=== PATIENT | female | born 1980 | race Caucasian/White ===

== ENCOUNTER 2020-10-23 16:26 | Outpatient (REF) | payer OTHER, SELFPAY | END 2020-10-23 16:27 | disposition home or self-care (01) | LOC: HO.LNP 16:26 | PROVIDERS: Visit Provider Nurse Practitioner Family | DX: Z13.89 Encounter for screening for other disorder (principal) ==

== ENCOUNTER 2020-10-23 16:38 | Outpatient (REF) | payer OTHER, SELFPAY | END 2020-10-23 16:39 | disposition home or self-care (01) | LOC: HO.LAB 16:38 | PROVIDERS: Visit Provider Nurse Practitioner Family | DX: R30.0 Dysuria (principal) | CPT/HCPCS: 87086 ==

== ENCOUNTER 2022-10-07 15:23 | Outpatient (REF) | payer OTHER, SELFPAY ==
[2022-10-07 16:08] LABS: MANUAL DIFF FLAG NO
[2022-10-07 16:15] LABS: Basophils Absolute Auto 0.1 X10*3/uL (0.0-0.2); Basophils Percent Auto 0.5 % (0-2); Eosinophils Absolute Auto 0.1 X10*3/uL (0.0-0.4); Eosinophils Percent Auto 1.5 % (0-4); Hematocrit 45.4 % (37.0-47.0); Hemoglobin 15.7 g/dl (12.0-16.0); Imm Gran Abs Auto 0.03 X10*3/uL (0.00-0.03); Imm Gran Pct Auto 0.3 % (0.0-0.4); Lymphocytes Absolute Auto 2.9 X10*3/uL (1.2-4.9); Lymphocytes Percent Auto 29.9 % (20-40); Mean Corpuscular HGB Conc 34.6 g/dl (31.0-35.0); Mean Corpuscular Volume 86.6 fL (80.0-98.0); Mean Platelet Volume 10.5 fL (9.4-12.3); Monocytes Absolute Auto 0.7 X10*3/uL (0.1-1.2); Monocytes Percent Auto 6.9 % (2-11); Neutrophils Absolute Auto 5.8 x10*3/uL (2.0-8.3); Neutrophils Percent Auto 60.9 % (45-73); Platelet Count 354 X10*3/uL (160-400); Red Blood Count 5.24 X10*6/uL (4.20-5.50); Red Cell Distribution Width 12.1 % (11.0-16.0); White Blood Count 9.6 X10*3/uL (4.8-10.8)
[2022-10-07 16:16] LABS: Appearance Urine Cloudy; Color Urine Yellow; Glucose Urine UA 250 mg/dL (Negative); Leukocyte Esterase Urine Negative (Negative); Nitrite Urine Negative (Negative); PH 5.5 (5.0-9.0); Specific Gravity - Urine 1.025 (1.005-1.025); UMIC TRIGGER UACC YES; Urine Blood Negative (Negative); Urine Ketones 15 mg/dL (Negative); Urine Protein 30 (1+) mg/dL (Neg-Trace)
[2022-10-07 16:21] LABS: Bacteria Urine Trace (None Seen); Hyaline Casts Urine 0-2 /LPF (0-2); RBC Urine 0-2 /HPF (0-2); WBC Urine 0-5 /HPF (0-5)
[2022-10-07 16:56] LABS: Alanine Aminotransferase 38 U/L (0-31); Albumin Level 4.5 g/dL (3.5-5.0); Alkaline Phosphatase 57 U/L (39-117); Anion Gap 17 (12-20); Aspartate Amino Transferase 35 U/L (5-31); Bilirubin Total 0.8 mg/dL (0.0-1.0); Blood Urea Nitrogen 9 mg/dL (9-16); Calcium 9.1 mg/dL (8.4-10.2); Carbon Dioxide 22 mmol/L (22-29); Chloride 104 mmol/L (96-108); Cholesterol 104 mg/dL; Estimated Glomerular Filt Rate > 60; Glucose Fasting 252 mg/dL (60-99); HDL Cholesterol 34 mg/dL; LDL Cholesterol Calculated 22 mg/dl; Potassium 4.4 mmol/L (3.3-5.1); Sodium 139 mmol/L (135-145); Total Protein 7.3 g/dL (6.5-8.0); Triglycerides 240 mg/dL
[2022-10-07 17:12] LABS: TSH reflex Free T4 1.37 uIU/mL (0.32-4.0)
== END 2022-10-07 15:24 | disposition home or self-care (01) ==
LOC: HO.HMGCLDS 15:23
PROVIDERS: PCP Nurse Practitioner Family; Visit Provider Nurse Practitioner Family
DX: E11.65 Type 2 diabetes mellitus with hyperglycemia (principal)
CPT/HCPCS: 36415; 80053; 80061; 81001; 84443; 85025

== ENCOUNTER 2023-01-17 09:25 | Outpatient (REF) | payer OTHER, SELFPAY ==
--- NOTE | ~2023-01-17 | XR_ITS ---
EXAMINATION: XR SHOULDER, RIGHT CLINICAL INFORMATION: Right shoulder pain. COMPARISON: None available. TECHNIQUE: AP, Grashey, and scapular Y views of the right shoulder. FINDINGS: No acute fracture or dislocation. No significant joint space narrowing. Small inferior glenoid marginal osteophytes. No osseous erosion. No abnormal soft tissue calcification. XR/XR shoulder RT min 2V IMPRESSION: Minimal glenohumeral arthrosis.
[2023-01-17 11:08] LABS: MANUAL DIFF FLAG NO
[2023-01-17 11:16] LABS: Basophils Absolute Auto 0.1 X10*3/uL (0.0-0.2); Basophils Percent Auto 0.8 % (0-2); Eosinophils Absolute Auto 0.2 X10*3/uL (0.0-0.4); Eosinophils Percent Auto 2.9 % (0-4); Hematocrit 39.4 % (37.0-47.0); Imm Gran Abs Auto 0.03 X10*3/uL (0.00-0.03); Imm Gran Pct Auto 0.4 % (0.0-0.4); Lymphocytes Absolute Auto 2.6 X10*3/uL (1.2-4.9); Lymphocytes Percent Auto 32.4 % (20-40); Mean Corpuscular Hemoglobin 29.1 pg (27.0-33.0); Mean Corpuscular Volume 88.3 fL (80.0-98.0); Mean Platelet Volume 10.6 fL (9.4-12.3); Monocytes Absolute Auto 0.5 X10*3/uL (0.1-1.2); Monocytes Percent Auto 6.8 % (2-11); Neutrophils Absolute Auto 4.5 x10*3/uL (2.0-8.3); Neutrophils Percent Auto 56.7 % (45-73); Platelet Count 314 X10*3/uL (160-400); Red Blood Count 4.46 X10*6/uL (4.20-5.50); Red Cell Distribution Width 12.5 % (11.0-16.0); White Blood Count 7.9 X10*3/uL (4.8-10.8)
[2023-01-17 11:21] LABS: Appearance Urine Clear; Color Urine Yellow; Glucose Urine UA >=1000 mg/dL (Negative); Leukocyte Esterase Urine Negative (Negative); Nitrite Urine Negative (Negative); PH 6.5 (5.0-9.0); Specific Gravity - Urine 1.025 (1.005-1.025); UMIC TRIGGER UACC YES; Urine Blood Negative (Negative); Urine Ketones Trace mg/dL (Negative); Urine Protein Negative (Neg-Trace)
[2023-01-17 11:27] LABS: Alanine Aminotransferase 14 U/L (0-31); Albumin Level 3.9 g/dL (3.5-5.0); Alkaline Phosphatase 64 U/L (39-117); Anion Gap 15 (12-20); Aspartate Amino Transferase 13 U/L (5-31); Bilirubin Total 0.5 mg/dL (0.0-1.0); Blood Urea Nitrogen 11 mg/dL (9-16); Calcium 9.1 mg/dL (8.4-10.2); Carbon Dioxide 23 mmol/L (22-29); Chloride 101 mmol/L (96-108); Estimated Glomerular Filt Rate > 60; Glucose Random 294 mg/dL (60-115); Potassium 3.9 mmol/L (3.3-5.1); Sodium 135 mmol/L (135-145); Total Protein 6.9 g/dL (6.5-8.0)
[2023-01-17 11:35] LABS: Bacteria Urine Trace (None Seen); Hyaline Casts Urine 0-2 /LPF (0-2); RBC Urine 0-2 /HPF (0-2); WBC Urine 0-5 /HPF (0-5)
[2023-01-19 09:28] LABS: Follicle Stimulating Hormone 4.7 mIU/mL; Lutenizing Hormone 7.7 mIU/mL
[2023-02-01 05:28] LABS: Estradiol Free 6.03 pg/mL; Estradiol, Ultrasensitive 246 pg/mL
== END 2023-01-17 09:26 | disposition home or self-care (01) ==
LOC: HO.HMGCX 09:25
PROVIDERS: PCP Nurse Practitioner Family; Visit Provider Nurse Practitioner Family
DX: M25.511 Pain in right shoulder (principal); E11.65 Type 2 diabetes mellitus with hyperglycemia; R23.2 Flushing; N92.6 Irregular menstruation, unspecified
CPT/HCPCS: 36415; 73030; 80053; 81001; 82670; 82672; 82681; 83001; 83002; 85025

== ENCOUNTER 2023-03-26 14:00 | Outpatient (RCR) | payer OTHER, SELFPAY ==
--- NOTE | 2023-02-05 13:49 | MHC.PT.EP ---
[facility] [place] Office [place] Office [address] Clarissa Loza [address] [phone] F: [phone] F: [phone] F: [phone] F: [phone] Physical Therapy Plan of Care Date of Evaluation: Date of Surgery: n/a Diagnosis: R shoulder pain Assessment: Patient is a 42 year old female presenting to PT with complaints of pain in her R shoulder. Pt reports onset of pain began about 1 month ago due to insidious onset. She presents today with impairments in pain, ROM, shoulder strength, posture. Pt's current occupation is none, with baseline physical activities including reaching, lifting, ADLs, sleeping. 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 Clinical presentation today is most consistent with signs and sx associated with R shoulder pain and pt will benefit from skilled PT 2 week x 4 weeks to address the following problems and impairments noted upon evaluation: pain, ROM, shoulder strength, posture. These problems limit the patient with the following functional activities: reaching, lifting, ADLs, sleeping. The prescribed treatment plan of care is medically necessary. Co-morbidities of tachycardia, DM were identified and taken into considerations of plan of care. Pt was educated on HEP, role of PT, prognosis, POC. Frequency and Duration: The patient will be seen 2 x week x 4 weeks Short Term Goals: Pt will demonstrate improved R shoulder ROM to equal B in 2 weeks. Pt will demonstrate improved R shoulder MMT strength by 1/3 grade in 2 weeks. Pt will demonstrate improved postural awareness by sitting with biomechanically correct posture without cues throughout session to improve overall postural function in 2 weeks. Chcf Goals: Pt will demonstrate improved SPADI score by 13 points in 4 weeks for improved functional mobility. Pt will demonstrate ability to reach and lift with min to no pain in 4 weeks for improved ability to complete ADLs. Pt will demonstrate ability to sleep with min to no pain in 4 weeks for improved QOL. Treatment Plan: Modalities to reduce pain, spasms and effusion. Manual therapy to restore motion and function. Therapeutic exercise to improve strength and flexibility. Neuromuscular re-education for posture and balance. Therapeutic activities to return to functional activities of daily living. Electronically signed by: Angelic Yung, PT, DPT, ATC Please sign and return to therapist. Thank you for your referral.
--- NOTE | 2023-04-07 14:24 | MHC.PT.DC ---
[facility] [place] Office [place] Office [place] Office [address] Aleena Loza [address] [phone] F: [phone] F: [phone] F: [phone] F: [phone] Physical Therapy Discharge Report Diagnosis: R shoulder pain Date of Surgery: n/a Date of Evaluation: 02/05/23 Date of Discharge: 04/07/23 Treatments to Date: 6 Cancellations to Date: 8 No Shows to Date: 2 Discharge Status: Visit Non-compliance Discharge Summary: Pt has failed to comply with [facility] attendance policy and cancelled 8 appointments and no showed 2. Pt to be d/c at this time. Electronically signed by: Angelic Yung, PT, DPT, ATC Please sign and return to therapist. Thank you for your referral.
== END 2023-04-07 14:25 | disposition home or self-care (01) ==
LOC: HO.PTCHIC 14:00
PROVIDERS: PCP Nurse Practitioner Family; Visit Provider Nurse Practitioner Family
DX: M25.511 Pain in right shoulder (principal)
CPT/HCPCS: 97110; 97140; 97161

== ENCOUNTER 2023-04-20 11:05 | Outpatient (AMB) | payer OTHER, SELFPAY ==
--- NOTE | 2023-04-20 11:12 | MHC.PC.OV ---
Vital Signs 04/20/23 11:13 04/20/23 11:40 Height 5 ft 5 in Weight 205 lb BMI 34.1 BP 130/100 H 130/96 H Blood Pressure Location Lt brachial Lt brachial Position Sitting Sitting Pulse 102 H Pulse Source Pulse Oximeter Pulse Oximetry (%) 98 Oxygen Delivery Method Room Air Intake Visit Reasons: 3m follow up anxiety/depression Allergies diphenhydramine [Benadryl] Allergy (Unknown, Verified 04/20/23 12:18) swelling, hives Benadryl Allergy (Unknown, Uncoded 04/20/23 12:18) hives Pumpkin Allergy (Unknown, Uncoded 04/20/23 12:18) unknown Seafood Allergy (Unknown, Uncoded 04/20/23 12:18) unknown Medication List - Last Reconciled 04/20/23 by Isaac Boykin ROSTER CLERK- albuterol sulfate 90 mcg/actuation (ProAir HFA) 2 puffs inhalation Q4-6H PRN alcohol swabs (Alcohol Pads) 1 pad topical BID 90 days alprazolam 1 mg PO BID PRN 30 days atorvastatin 10 mg PO BEDTIME 90 days blood sugar diagnostic (FreeStyle Test strips) As directed blood sugar diagnostic (FreeStyle Lite Strips) As directed to test blood sugars TID a day blood-glucose meter ([place]Style System Kit) Use to check blood sugar TID celecoxib (Celebrex) 200 mg PO BID PRN 30 days cetirizine 10 mg PO DAILY 30 days duloxetine 20 mg PO ONCE epinephrine (EpiPen 2-Merrill) 0.3 mg (0.3 mL) IM ONCE PRN fenofibrate 54 mg PO DAILY flash glucose scanning reader (FreeStyle Jacob 2 [place]) tid testing flash glucose sensor (FreeStyle Jacob 2 Sensor kit) tid testing gabapentin 300 mg PO QID 30 days lancets (FreeStyle Lancets) Use to check blood sugar TID or as needed for signs/symptoms of hypo/hyperglycemia metformin 1,000 mg PO BID propranolol 20 mg PO BID semaglutide (Ozempic) 0.25 mg (0.368 mL) subcut QWEEK Shower Chair daily tizanidine 4 mg PO BEDTIME PRN 15 days walker daily [walker with seat and wheels daily] Tobacco use date assessed: 11/26/22 HPI 3m follow up anxiety/depression HPI Details Pt is a diabetic, on a statin. A1C in office today is 8.6. Due for microalbumin. Denies polyuria, polydipsia, and neuropathy. Pt denies any signs and symptoms of hypoglycemia and does know how to correct it. Pt reports that due to dysphagia she has been eating more carbs. Will increase ozempic from 0.25mg to 0.5mg. She is seeing GI due to dysphagia. Eye exam is up to date. HTN: Will increase propranolol from 20mg big to 40mg bid. Pt reports ongoing intermittent weakness. She also reports a facial droop in the past?? Pt would like MG ruled out. Will refer to neurology per pt's request. [facility] Medical History Arthritis Hypermobility arthralgia Surgical History No pertinent past surgical history Family History Other Mental health disorder Substance use disorder Social History Housing: House Alcohol intake: current Alcohol intake frequency: holidays/special occasions only Patient Tobacco Use Status: Former Tobacco user Quit Date: 06/17 Tobacco use type: Cigarette e-Cigarette/Vaping Use: Never Used Second Hand Smoke Exposure: Yes Substance Use Type: Marijuana service: No Current occupational status: unemployed Cognitive needs: No Hearing needs: No Vision needs: Yes (contacts) Questionnaire Thrive Questionnaire Date Thrive assessed: 10/07/22 RADHA-7 AMB Questionnaire RADHA-7 Date RADHA - 7 assessed: 10/07/22 Source: Developed by Drs. Matthew Walton, Jazzmine Florian, Eloy Jaramillo and colleagues, with an educational bryce from [employer]. Review of Systems Const Reports as per HPI Physical exam (Primary Care) Vital Signs: Last Vital Signs Pulse 102 H 04/20/23 11:13 BP 130/96 H 04/20/23 11:40 Pulse Ox 98 04/20/23 11:13 Oxygen Delivery Method Room Air 04/20/23 11:13 BMI result Body Mass Index 34.1 Tobacco/Smoking Status: Tobacco use Status Tobacco use date assessed 11/26/22 04/20/23 11:16 Patient Tobacco Use Status Former Tobacco user 04/20/23 11:16 Tobacco use type Cigarette 04/20/23 11:16 e-Cigarette/Vaping Use Never Used 04/20/23 11:16 Thrive Assessment: Date of Thrive Assessment Date Thrive assessed 10/07/22 04/20/23 11:16 Const General: cooperative Nutritional Appearance: obese Orientation/consciousness: patient oriented x3 Resp Effort & Inspection: normal respiratory effort Auscultation: clear to auscultation bilaterally Cardio Rate: regular rate Rhythm: regular rhythm Heart sounds: S1 normal heart sound present and S2 normal heart sound present Neuro Other: neg rhomberg, finger to thumb intact, arm pull test neg. General: patient oriented x3 Cranial nerves: Yes CN's II-XII intact bilaterally Motor exam (neuro): 5/5 motor strength present throughout Extrem Other: bilat feet: + sensation with use of monofilament Psych Appearance: grossly normal Mental Status: mental status grossly normal Speech and movement: Normal speech and movement present Affect: normal affect Attitude: cooperative Thought process: Normal thought process present Thought content: Normal thought content present Insight: Good insight present (Psych) Judgement: Good judgement present (Psych) Results AMB Hemoglobin A1c AMB Hemoglobin A1c 8.6 % Last Edit by ETHEL Laughlin on 04/20/23 11:37 Results Reviewed Results Reviewed: Laboratory Last Values Hgb A1c (Clinic) 8.6 % (4.0-6.0) H 04/20/23 11:36 Assessment and Plan Assessment & Plan (1) Muscle weakness: Code(s): M62.81 - Muscle weakness (generalized) (2) Dysphagia: Code(s): R13.10 - Dysphagia, unspecified (3) Diabetes: Code(s): E11.9 - Type 2 diabetes mellitus without complications Plan The patient agreed to the use of a medical office technologist for this encounter. Scribed for TASIA Morales by Yari Cartagena medical office technologist, on 04/20/2023 at 11:20 EST. Orders: Orders AMB Hemoglobin A1c Today Z13.9 - Encounter for screening, unspecified Referrals Neurology Referral M62.81 - Muscle weakness (generalized) Medications: Changed From propranolol 20 mg PO BID 180 tabs 1RF To propranolol 40 mg PO BID 60 tabs 1RF 30 days From semaglutide (Ozempic) for 4 weeks 0.25 mg (0.368 mL) subcut QWEEK 3 mL 0RF To semaglutide (Ozempic) for 4 weeks 0.5 mg (0.736 mL) subcut QWEEK 3 mL 0RF Coding Level of Care Code Est Pt Level 3 (58534) Diagnoses Muscle weakness M62.81 Dysphagia R13.10 Diabetes E11.9
[2023-04-20 11:13] VITALS: BP 130/100; PULSE 102; O2SAT 98; BMI 34.1
[2023-04-20 11:40] VITALS: BP 130/96
== END 2023-04-20 13:40 | disposition home or self-care (01) ==
PROVIDERS: PCP Nurse Practitioner Family; Visit Provider Nurse Practitioner Family
DX: M62.81 Muscle weakness (generalized) (principal); R13.10 Dysphagia, unspecified; E11.9 Type 2 diabetes mellitus without complications
CPT/HCPCS: 83036; 99213

== ENCOUNTER 2023-04-29 16:41 | Outpatient (REF) | payer OTHER, SELFPAY ==
[2023-04-29] MEDS: gadobutroL 10 ML VIAL IVPUSH (17:20)
== END 2023-04-29 16:42 | disposition home or self-care (01) ==
LOC: HO.MRI 16:41
PROVIDERS: PCP Nurse Practitioner Family; Visit Provider Nurse Practitioner Family
DX: G81.91 Hemiplegia, unspecified affecting right dominant side (principal)
CPT/HCPCS: 70553; A9585

== ENCOUNTER 2023-07-23 16:27 | Outpatient (AMB) | payer OTHER, SELFPAY ==
--- NOTE | 2023-07-23 16:42 | MHC.PC.OV ---
Vital Signs 07/23/23 16:44 Weight 213 lb BP 120/82 Blood Pressure Location Lt brachial Position Sitting Pulse 79 Pulse Source Pulse Oximeter Pulse Oximetry (%) 98 Oxygen Delivery Method Room Air Intake Visit Reasons: Diabetes F/U Intake Note: Patient here for diabetes follow up, she states her sugars have been on the higher end of them as she is having difficulty swallowing so shes been consuming more carbs since they are usually on the softer side. 12.4 a1c, pt refuses insulin today, give me 3 months . #2 right shoulder pain, XR, PT performed, without relief. I will order a MRI at this point Allergies diphenhydramine [Benadryl] Allergy (Unknown, Verified 07/23/23 16:56) swelling, hives Benadryl Allergy (Unknown, Uncoded 07/23/23 16:56) hives Pumpkin Allergy (Unknown, Uncoded 07/23/23 16:56) unknown Seafood Allergy (Unknown, Uncoded 07/23/23 16:56) unknown Medication List - Last Reconciled 07/23/23 by Isaac Boykin, DATAWAREHOUSE DEVELOPER- albuterol sulfate 90 mcg/actuation (ProAir HFA) 2 puffs inhalation Q4-6H PRN alcohol swabs (Alcohol Pads) 1 pad topical BID 90 days alprazolam 1 mg PO BID 30 days atorvastatin 10 mg PO BEDTIME 90 days betamethasone dipropionate 0.05% 1 appl topical DAILY PRN blood sugar diagnostic (FreeStyle Test strips) As directed blood sugar diagnostic (FreeStyle Lite Strips) As directed to test blood sugars TID a day blood-glucose meter (FreeStyle System Kit) Use to check blood sugar TID celecoxib (Celebrex) 200 mg PO BID PRN 30 days cetirizine 10 mg PO DAILY 30 days duloxetine 40 mg PO ONCE epinephrine (EpiPen 2-Merrill) 0.3 mg (0.3 mL) IM ONCE PRN fenofibrate 54 mg PO DAILY flash glucose scanning reader (FreeStyle Jacob 2 [place]) tid testing flash glucose sensor (FreeStyle Jacob 2 Sensor kit) tid testing gabapentin 300 mg PO QID 30 days lancets (FreeStyle Lancets) Use to check blood sugar TID or as needed for signs/symptoms of hypo/hyperglycemia lisinopril 2.5 mg PO DAILY metformin 1,000 mg PO BID propranolol 40 mg PO BID 30 days semaglutide 1 mg (0.75 mL) subcut QWEEK Shower Chair daily tizanidine 4 mg PO BEDTIME PRN 15 days walker daily [walker with seat and wheels daily] Tobacco use date assessed: 11/26/22 HPI Diabetes F/U HPI Details pt is on a statin and a sofy. eye exam is up to date. 12.4 A1 today. Patient refuses any type of insulin today but reports that she will definitely consider this in 3 months if her A1c is still very high. She understands the s/s of hypoglycemia and how to correct it. I will go up on her ozempic from 0.5 mg to 1 mg. Patient denies any polyuria, polydipsia, but does get intermittent neuropathy (mostly in her legs) #2 ongoing right shoulder pain. X-ray has been performed, she has participated in physical therapy with no relief. At this point I will order an MRI. [facility] Medical History Arthritis Hypermobility arthralgia Surgical History No pertinent past surgical history Family History Other Mental health disorder Substance use disorder Social History Housing: House Alcohol intake: current Alcohol intake frequency: holidays/special occasions only Patient Tobacco Use Status: Former Tobacco user Quit Date: 06/17 Tobacco use type: Cigarette e-Cigarette/Vaping Use: Never Used Second Hand Smoke Exposure: Yes Substance Use Type: Marijuana service: No Current occupational status: unemployed Cognitive needs: No Hearing needs: No Vision needs: Yes (contacts) Questionnaire Thrive Questionnaire Date Thrive assessed: 10/07/22 RADHA-7 AMB Questionnaire RADHA-7 Date RADHA - 7 assessed: 10/07/22 Source: Developed by Drs. Matthew Walton, Jazzmine Florian, Eloy Jaramillo and colleagues, with an educational bryce from [employer]. Physical exam (Primary Care) Vital Signs: Last Vital Signs Pulse 79 07/23/23 16:44 BP 120/82 07/23/23 16:44 Pulse Ox 98 07/23/23 16:44 Oxygen Delivery Method Room Air 07/23/23 16:44 Tobacco/Smoking Status: Tobacco use Status Tobacco use date assessed 11/26/22 07/23/23 16:48 Patient Tobacco Use Status Former Tobacco user 07/23/23 16:48 Tobacco use type Cigarette 07/23/23 16:48 e-Cigarette/Vaping Use Never Used 07/23/23 16:48 Thrive Assessment: Date of Thrive Assessment Date Thrive assessed 10/07/22 07/23/23 16:48 Const General: cooperative, healthy appearing, comfortable and no acute distress Resp Effort & Inspection: normal respiratory effort Auscultation: clear to auscultation bilaterally Cardio Rate: regular rate Rhythm: regular rhythm Heart sounds: S1 normal heart sound present, S2 normal heart sound present and no murmurs Neuro Motor exam (neuro): 5/5 motor strength present throughout Extrem Other: Positive sensation with use of monofilament. Feet are intact Psych Appearance: grossly normal Mental Status: mental status grossly normal Speech and movement: Normal speech and movement present Affect: normal affect Thought process: Normal thought process present Results AMB Hemoglobin A1c AMB Hemoglobin A1c 12.4 % Last Edit by ETHEL Laughlin on 07/23/23 17:14 Results Reviewed Results Reviewed: Laboratory Last Values Hgb A1c (Clinic) 12.4 % (4.0-6.0) H 07/23/23 17:13 Assessment and Plan Assessment & Plan (1) Right shoulder pain: Code(s): M25.511 - Pain in right shoulder (2) Diabetes: Code(s): E11.9 - Type 2 diabetes mellitus without complications Plan: increased ozempic, pt refused insulin currently Orders: Orders MR shoulder RT w con Today M25.511 - Pain in right shoulder AMB Hemoglobin A1c Today E11.9 - Type 2 diabetes mellitus without complications Medications: New betamethasone dipropionate 0.05% 1 appl topical DAILY PRN 45 grams 0RF skin irritation Changed From semaglutide (Ozempic) 0.5095 mg (0.75 mL) subcut QWEEK 3 mL 0RF To semaglutide 1 mg (0.75 mL) subcut QWEEK 3 mL 0RF Coding Level of Care Code Est Pt Level 3 (80837) Diagnoses Right shoulder pain M25.511 Diabetes E11.9
[2023-07-23 16:44] VITALS: BP 120/82; PULSE 79; O2SAT 98
== END 2023-07-23 17:10 | disposition home or self-care (01) ==
PROVIDERS: PCP Nurse Practitioner Family; Visit Provider Nurse Practitioner Family
DX: M25.511 Pain in right shoulder (principal); E11.9 Type 2 diabetes mellitus without complications
CPT/HCPCS: 83036; 99213

== ENCOUNTER 2023-08-07 10:47 | Outpatient (AMB) | payer OTHER, SELFPAY ==
--- NOTE | 2023-08-07 10:50 | A.OFFVIS_ITS ---
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 I had a back injury in May,ponching my nerves Im having issues with my hands and whole body I couldn't swallow, i also have numbness and nerve tremors. Allergies diphenhydramine [Benadryl] Allergy (Unknown, Verified 08/07/23 10:53) swelling, hives Benadryl Allergy (Unknown, Uncoded 08/07/23 10:53) hives Pumpkin Allergy (Unknown, Uncoded 08/07/23 10:53) unknown Seafood Allergy (Unknown, Uncoded 08/07/23 10:53) unknown Medication List - Last Reconciled 08/07/23 by HEATH Major albuterol sulfate 90 mcg/actuation (ProAir HFA) 2 puffs inhalation Q4-6H PRN alcohol swabs (Alcohol Pads) 1 pad topical BID 90 days alprazolam 1 mg PO BID 30 days atorvastatin 10 mg PO BEDTIME 90 days betamethasone dipropionate 0.05% 1 appl topical DAILY PRN blood sugar diagnostic (FreeStyle Lite Strips) As directed to test blood sugars TID a day blood-glucose meter (FreeStyle System Kit) Use to check blood sugar TID celecoxib (Celebrex) 200 mg PO BID PRN 30 days cetirizine 10 mg PO DAILY 30 days duloxetine 40 mg PO ONCE epinephrine (EpiPen 2-Merrill) 0.3 mg (0.3 mL) IM ONCE PRN fenofibrate 54 mg PO DAILY flash glucose scanning reader ([employer]CIER[employer]tyle Jacob 2 [place]) tid testing flash glucose sensor (FreeStyle Jacob 2 Sensor kit) tid testing gabapentin 300 mg PO QID 30 days lancets (FreeStyle Lancets) Use to check blood sugar TID or as needed for signs/symptoms of hypo/hyperglycemia lisinopril 2.5 mg PO DAILY metformin 1,000 mg PO BID propranolol 40 mg PO BID 30 days semaglutide 1 mg (0.75 mL) subcut QWEEK Shower Chair daily tizanidine 4 mg PO BEDTIME PRN 15 days walker daily [walker with seat and wheels daily] HPI HPI Comments History of Present Illness Details Right-handed 43-yr-old female presents for neurological evaluation of: weakness for ? of Myasthenia Gravis. Pt reports she suffered a low back injury May 2022- L5 disc herniation following a bout of sneezing. This caused severe back pain, LLE radicular pain. She states she was bedbound for almost 4 months. But slowly she started to feel better. Although her gait is still altered- tends to waddle. She can still feel low back pain and LLE radicular s/s. She did not have surgery d/t her HgA1C was not optimally controlled (last HgA1C > 12%, dx'sdw/ DM x's 5 yrs). She had worsening of BLE burning/sharp pains in BLE- had prior to the injury but again was worse after- and now betetr w/ starting Duloxetine for mood. In September 2022, she developed muscle twitching in her head, lip, arms, even in her colon. It is not painful but annoying. In September 2022, She started having episodes of heart palpitations, night sweats, and waking up gasping for air- and has since been started on Propranolol which helps although can have breakthrough palpitations. In October 2022- she started developing difficulty swallowing either fluids or solids, which lasted 4 months. Now occurring randomly w/ bouts of difficulty swallowing- tends to eat softer foods or has to cut up the foods in very small pieces. Unsure of any clear triggers. Barium swallow showed weak swallow, but otherwise ENT, GI work-up was unremarkable. In November 2022, she started having right shoulder and right arm pain (more in shoulder to elbow), shooting, burning, throbbing. The arm pain can waker her up at night, Rt shoulder XR- showed arthritis. In December/January 2023- she developed full left sided weakness/numbness w/ left facial droop x's 2 days. Brain MRI was normal. She also endorses: For yrs, Milly hands can go numb and she will drop things without realizing it. Blurry vision Left eye droop- unsure how often. Unsure of triggers. Can be easily SOB- pulmonology does not think it is d/t her asthma- Dr Humphreys. Left temporal and Left upper arm muscle spasms. Cramps anywhere in the body. Restless legs- urge to move, restless sleep, need to rub her legs, creepy crawling sensation- even in her arms. Her boyfriend has told her she snores, especially if sleeping supine, loud b reathing, unrefreshing sleep, excessive daytime sleepiness. Headaches- can be milly occipital to frontal or bifrontal/temporal throbbing and sometimes sharp, photophobia, phonophobia, osmophobia, allodynia, nausea, dizziness, brain fog, activity tolerance. No known usual focal weakness. Celebrex helps- has occasional mild ANDERSON a/w photophobia. Without Celebrex- she was having 2 migraine attacks per week. Duration- 4-5 hrs up to 1 day. If she misses her Celebrex= she will have a sevre migraine. Last severe migarine was in Apr 2023. She never tried Imitrex. Naproxen- was helpful even for prevention. Work-Up: 04/29/23, Brain MRI w/wo- normal 03/05/23 CXR- normal 03/05/22 Neck CTA- normal 03/05/23 Head CTA- normal 03/05/23 CT brain wo- no acute findings 02/09/23 CR barrium swallow- mild esophag eal dysmotility 01/20/23 Transthoracic Echocardiogram- no rmal 01/19/23 24 hr Holter- NSR, 2 PACs. No PV Cs. 06/20/22 L-spine MRI w/o: L4-L5- mild ri ght paracentral disc bulge. L5-S1- mild degenertaive change, large left paracentral disc protrusion, likely impinging left S1 nerve root, milly lateral recess stenosis, mod central canal stenosis, mild right and mild-mod left neural foraminal stenosis (full report in chart). [facility] Medical History Arthritis Hypermobility arthralgia Surgical History No pertinent past surgical history Family History Other Mental health disorder Substance use disorder Social History Housing: House Alcohol intake: current Alcohol intake frequency: holidays/special occasions only Patient Tobacco Use Status: Former Tobacco user Quit Date: 06/17 Tobacco use type: Cigarette e-Cigarette/Vaping Use: Never Used Second Hand Smoke Exposure: Yes Substance Use Type: Marijuana service: No Current occupational status: unemployed Cognitive needs: No Hearing needs: No Vision needs: Yes (contacts) Questionnaire [place] Sleepiness Scale Questions Sitting and reading: high chance of dozing Watching TV: high chance of dozing Sitting inactive in a theater, movie etc.: would never doze As a passenger in a car for an hour without break: moderate chance of dozing Lying down in the afternoon when circumstances permit: moderate chance of dozing Sitting and talking to someone: would never doze Sitting quietly after lunch without alcohol: moderate chance of dozing In a car, while stopped for a few minutes in the traffic: would never doze ESS < 10: normal, ESS > 12: pathologic: 12 Review of Systems Const All systems reviewed & are unremarkable except as noted in HPI and below Physical Exam Vital Signs: Last Vital Signs Pulse 82 08/07/23 10:51 BP 118/82 08/07/23 10:51 Pulse Ox 97 08/07/23 10:51 Oxygen Delivery Method Room Air 08/07/23 10:51 BMI result Body Mass Index 35.4 Const General: cooperative and no acute distress Orientation/consciousness: patient oriented x3 HEENT Head: Yes normocephalic Resp Effort & Inspection: normal respiratory effort and able to speak in complete sentences Back/Spine/Pelvis Other: Bilateral posterior cervical tightness. 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 Bilateral Tinnel, Phalen, medial compression test- negative. DTRs dulled throughout MS 5/5, milly hands grasps- less full force strength than would be expected General: patient oriented x3 Gait exam (Neuro): Antalgic gait present Psych Appearance: grossly normal Mental Status: mental status grossly normal Speech and movement: Normal speech and movement present Affect: normal affect Attitude: cooperative Thought process: Normal thought process present Assessment & Plan Assessment & Plan (1) Muscle weakness: Code(s): M62.81 - Muscle weakness (generalized) (2) Dysphagia: Code(s): R13.10 - Dysphagia, unspecified (3) Muscle cramps: Code(s): R25.2 - Cramp and spasm (4) Muscle spasm: Code(s): M62.838 - Other muscle spasm (5) Cervicalgia: Code(s): M54.2 - Cervicalgia (6) Paresthesia: Code(s): R20.2 - Paresthesia of skin (7) Snoring: Code(s): R06.83 - Snoring (8) Excessive daytime sleepiness: Code(s): G47.19 - Other hypersomnia (9) Esophageal dysmotility: Code(s): K22.4 - Dyskinesia of esophagus Plan Reviewed previous work-up- most notable for esophageal dysmotility in a 43 yr old pt, and L5-S1 large paracentral disc protrusion measuring 1 cm anleroposteriorly w/ central canal stenosis and milly L > R neural foraminal stenosis. Pt advised to undergo: Labs to assess for MG, as well as other secondary etiologies of muscle cramps, muscle twitching, weakness, RLS s/s, left eye pupil dysfunction. BUE EMG/NCS w/ paraspinal muscles BLE EMG/NCS paraspinal muscles XR cervical- 4 v and w/ flex /ext In-lab PSG- as pt has BMI > 35, esophageal dysmotility, snoring, muscle cramps, restless sleep, EDS. Upon review of above- we can consider a trial of Mestinon. Will also send a trial of Sumatriptan prn acute migraine attack. f/u upin review of above and in-clinic in 8 wks or sooner prn. Orders: Orders Complete Blood Count Auto Diff 08/07/23 M62.81 - Muscle weakness (generalized), M62.838 - Other muscle spasm, R00.2 - Palpitations, R06.02 - Shortness of breath, R13.10 - Dysphagia, unspecified, R25.2 - Cramp and spasm CRP High Sensitivity 08/07/23 M62.81 - Muscle weakness (generalized), M62.838 - Other muscle spasm, R00.2 - Palpitations, R06.02 - Shortness of breath, R13.10 - Dysphagia, unspecified, R25.2 - Cramp and spasm Ferritin 08/07/23 M62.81 - Muscle weakness (generalized), M62.838 - Other muscle spasm, R00.2 - Palpitations, R06.02 - Shortness of breath, R13.10 - Dysphagia, unspecified, R25.2 - Cramp and spasm Vitamin B12 and Folate 08/07/23 M62.81 - Muscle weakness (generalized), M62.838 - Other muscle spasm, R00.2 - Palpitations, R06.02 - Shortness of breath, R13.10 - Dysphagia, unspecified, R25.2 - Cramp and spasm IRON PROFILE 08/07/23 M62.81 - Muscle weakness (generalized), M62.838 - Other muscle spasm, R00.2 - Palpitations, R06.02 - Shortness of breath, R13.10 - Dysphagia, unspecified, R25.2 - Cramp and spasm Rheumatoid Factor 08/07/23 M62.81 - Muscle weakness (generalized), M62.838 - Other muscle spasm, R00.2 - Palpitations, R06.02 - Shortness of breath, R13.10 - Dysphagia, unspecified, R25.2 - Cramp and spasm NASRIN Reflex Titer and Pattern 08/07/23 M62.81 - Muscle weakness (generalized), M62.838 - Other muscle spasm, R00.2 - Palpitations, R06.02 - Shortness of breath, R13.10 - Dysphagia, unspecified, R25.2 - Cramp and spasm Acetylcholine Recept. Blocking 08/07/23 M62.81 - Muscle weakness (generalized), M62.838 - Other muscle spasm, R00.2 - Palpitations, R06.02 - Shortness of breath, R13.10 - Dysphagia, unspecified, R25.2 - Cramp and spasm MuSK Antibody 08/07/23 M62.81 - Muscle weakness (generalized), M62.838 - Other muscle spasm, R00.2 - Palpitations, R06.02 - Shortness of breath, R13.10 - Dysphagia, unspecified, R25.2 - Cramp and spasm Creatine Kinase Total 08/07/23 M62.81 - Muscle weakness (generalized), M62.838 - Other muscle spasm, R25.2 - Cramp and spasm NE electromyogram (EMG) 08/08/23 M54.16 - Radiculopathy, lumbar region, M62.81 - Muscle weakness (generalized), M62.838 - Other muscle spasm, R20.2 - Paresthesia of skin, R25.2 - Cramp and spasm RT PSG in-lab sleep study 08/07/23 G47.19 - Other hypersomnia, K22.4 - Dyskinesia of esophagus, R06.02 - Shortness of breath, R06.83 - Snoring, R25.2 - Cramp and spasm Other Ref Test - [facility] [place] 08/07/23 H21.562 - Pupillary abnormality, left eye, M62.81 - Muscle weakness (generalized), R20.2 - Paresthesia of skin Comprehensive Met. Panel 08/07/23 M62.81 - Muscle weakness (generalized), M62.838 - Other muscle spasm, R00.2 - Palpitations, R06.02 - Shortness of breath, R13.10 - Dysphagia, unspecified, R25.2 - Cramp and spasm Erythrocyte Sedimentation Rate 08/07/23 M62.81 - Muscle weakness (generalized), M62.838 - Other muscle spasm, R00.2 - Palpitations, R06.02 - Shortness of breath, R13.10 - Dysphagia, unspecified, R25.2 - Cramp and spasm TSH reflex Free T4 08/07/23 M62.81 - Muscle weakness (generalized), M62.838 - Other muscle spasm, R00.2 - Palpitations, R06.02 - Shortness of breath, R13.10 - Dysphagia, unspecified, R25.2 - Cramp and spasm Acetylcholine Receptor Binding 08/07/23 M62.81 - Muscle weakness (generalized), M62.838 - Other muscle spasm, R00.2 - Palpitations, R06.02 - Shortness of breath, R13.10 - Dysphagia, unspecified, R25.2 - Cramp and spasm Acetylcholine Operations Officer Modulating 08/07/23 M62.81 - Muscle weakness (generalized), M62.838 - Other muscle spasm, R00.2 - Palpitations, R06.02 - Shortness of duncan th, R13.10 - Dysphagia, unspecified, R25.2 - Cramp and spasm Smooth Muscle Antibody 08/07/23 M62.81 - Muscle weakness (generalized), M62.838 - Other muscle spasm, R00.2 - Palpitations, R06.02 - Shortness of breath, R13.10 - Dysphagia, unspecified, R25.2 - Cramp and spasm XR cervical spine 4V 08/07/23 M54.2 - Cervicalgia XR cervical spine w flex/ext 08/07/23 M54.2 - Cervicalgia, M62.81 - Muscle weakness (generalized), R13.10 - Dysphagia, unspecified NE electromyogram (EMG) 08/07/23 M54.2 - Cervicalgia, M62.81 - Muscle weakness (generalized), M62.838 - Other muscle spasm, R13.10 - Dysphagia, unspecified, R20.2 - Paresthesia of skin, R25.2 - Cramp and spasm Medications: New sumatriptan succinate (0.5 - 1 x 100 mg) 50 - 100 mg orally at onset of headache, may repeat in 2 hrs PRN; max 2 tabs per day or 4 tabs/week 30 days 12 tabs 6RF migraine headache Coding Level of Care Code New Pt Level 4 (46362) Diagnoses Muscle weakness M62.81 Dysphagia R13.10 Muscle cramps R25.2 Muscle spasm M62.838 Cervicalgia M54.2 Paresthesia R20.2 Snoring R06.83 Excessive daytime sleepiness G47.19 Esophageal dysmotility K22.4
[2023-08-07 10:51] VITALS: BP 118/82; PULSE 82; O2SAT 97; BMI 35.4
== END 2023-08-07 12:02 | disposition home or self-care (01) ==
LOC: HO.HSMS 10:47
PROVIDERS: PCP Nurse Practitioner Family; Visit Provider Nurse Practitioner Family
DX: M62.81 Muscle weakness (generalized) (principal); R13.10 Dysphagia, unspecified; M62.838 Other muscle spasm; M54.2 Cervicalgia; R20.2 Paresthesia of skin; R06.83 Snoring; G47.19 Other hypersomnia; K22.4 Dyskinesia of esophagus
CPT/HCPCS: 99204

== ENCOUNTER → 2023-08-07 10:47 | Outpatient (BNVA) | payer OTHER, SELFPAY | PROVIDERS: PCP Nurse Practitioner Family; Visit Provider Nurse Practitioner Family | DX: M62.81 Muscle weakness (generalized) (principal); R13.10 Dysphagia, unspecified; M62.838 Other muscle spasm; M54.2 Cervicalgia; R20.2 Paresthesia of skin; R06.83 Snoring; G47.19 Other hypersomnia; K22.4 Dyskinesia of esophagus | CPT/HCPCS: 99202 ==

== ENCOUNTER 2023-08-20 12:50 | Outpatient (REF) | payer OTHER, SELFPAY ==
--- NOTE | 2023-08-20 12:53 | EMG_ITS ---
Chief complaint: For the last 2 years, she has had random muscle twitching, left eye, left thigh, right arm, lips, forehead. Chronic neck pain, comes random as well. Random numbness in all fingers, bilateral. Tends to drop things. Constant right shoulder pain. Besides dropping things, denies any other weakness. No atrophy. Reason for referral: Evaluate for neuropathy Referred by: Akilah Sands MEDICAL DEVICE SALES REPRESENTATIVE Procedure done: Bilateral upper extremities NCS/EMG Precautions and/or limitations: None The limb temperature was monitored continuously and remained between 32-36 degrees C during the performance of the NCS. Ulnar motor NCS was performed with moderate elbow flexion between 70-90 degrees, with across-elbow distance of 10 cm. Nerve Conduction Studies Anti Sensory Summary Table ?Stim Site NR Onset (ms) Norm Onset (ms) Peak (ms) Norm Peak (ms) O-P Amp (?V) Norm O-P Amp Site1 Site2 Delta-0 (ms) Dist (cm) Jeff (m/s) Norm Jeff (m/s) Left Median Anti Sensory (2nd Digit) Wrist ? 2.4 3.0 <3.6 18.5 >10 Wrist 2nd Digit 2.4 14.0 58 Right Median Anti Sensory (2nd Digit) Wrist ? 3.0 3.6 <3.6 11.6 >10 Wrist 2nd Digit 3.0 14.0 47 Right Radial Anti Sensory (Thumb) Forearm ? 1.8 2.2 <3.1 19.4 Forearm Thumb 1.8 0.0 Right Ulnar Anti Sensory (5th Digit) Wrist ? 2.3 3.2 <3.7 15.0 >15.0 Wrist 5th Digit 2.3 14.0 61 Motor Summary Table ?Stim Site NR Onset (ms) Norm Onset (ms) O-P Amp (mV) Norm O-P Amp iAmp (mV) Amp (1st) (%) Site1 Site2 Delta-0 (ms) Dist (cm) Jeff (m/s) Norm Jeff (m/s) Left Median Motor (Abd Poll Brev) Wrist ? 3.5 <3.9 7.5 >4.5 8.9 100.0 Elbow Wrist 4.0 22.0 55 >45 Elbow ? 7.5 6.4 7.7 85.3 Right Median Motor (Abd Poll Brev) Wrist ? 3.9 <3.9 11.1 >4.5 13.1 100.0 Elbow Wrist 3.9 20.0 51 >45 Elbow ? 7.8 11.6 14.1 104.5 Left Ulnar Motor (Abd Dig Minimi) Wrist ? 2.8 <3.0 5.2 >5 5.9 100.0 B Elbow Wrist 3.4 18.0 53 >45 B Elbow ? 6.2 5.1 5.9 98.1 A Elbow B Elbow 2.6 10.0 38 >45 A Elbow ? 8.8 4.2 4.9 80.8 Right Ulnar Motor (Abd Dig Minimi) Wrist ? 2.7 <3.0 7.5 >5 9.2 100.0 B Elbow Wrist 3.9 19.0 49 >45 B Elbow ? 6.6 6.4 7.9 85.3 A Elbow B Elbow 2.2 10.0 45 >45 A Elbow ? 8.8 6.2 7.6 82.7 EMG ?Side Muscle Nerve Root Ins Act Fibs Psw Amp Dur Poly Recrt Int Pat Comment Right 1stDorInt Ulnar C8-T1 Nml Nml Nml Nml Nml 0 Nml Complete Right FlexCarRad Median C6-7 Nml Nml Nml Nml Nml 0 Nml Complete Right Biceps Musculocut C5-6 Nml Nml Nml Nml Nml 0 Nml Complete Right Triceps Radial C6-7-8 Nml Nml Nml Nml Nml 0 Nml Complete Right Deltoid Axillary C5-6 Nml Nml Nml Nml Nml 0 Nml Complete Left 1stDorInt Ulnar C8-T1 Nml Nml Nml Nml Nml 0 Nml Complete Left Biceps Musculocut C5-6 Nml Nml Nml Nml Nml 0 Nml Complete Left Triceps Radial C6-7-8 Nml Nml Nml Nml Nml 0 Nml Complete Left Deltoid Axillary C5-6 Nml Nml Nml Nml Nml 0 Nml Complete Left FlexCarpiUln Ulnar C8,T1 Nml Nml Nml Nml Nml 0 Nml Complete Paraspinal EMG ?Side Muscle Nerve Root Ins Act Fibs Psw Comment Right Cervical Upper Rami Nml Nml Nml Right Cervical Mid Rami Nml Nml Nml Right Cervical Lower Rami Nml Nml Nml Left Cervical Upper Rami Nml Nml Nml Left Cervical Mid Rami Nml Nml Nml Left Cervical Lower Rami Nml Nml Nml FINDINGS: Left ulnar motor nerve showed normal distal latency, normal amplitude and slow conduction velocity across the elbow. All other nerves tested were within normal. Concentric needle EMG was performed in selected muscles of the bilateral upper extremities and cervical paraspinals. Study did not reveal signs of electric abnormalities as shown in the table below. No fasciculation seen. IMPRESSION: 1. This is an abnormal study. 2. 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 3. There is no electrodiagnostic evidence for median neuropathy, brachial plexopathy, or cervical radiculopathy. No ulnar neuropathy on the right. CLINICAL COMMENT: Ulnar neuropathy would not explain her random muscle twitches. She was scheduled separately for testing bilateral lower extremities. Thank you for your kind referral. Blanca Longoria MD, YOGESH Board Certified, [place] Board [employer] Physical Medicine and Rehabilitation (ABPMR) Board Certified, [place] Board of Electrodiagnostic Medicine (ABEM) CODIN [id number] x 2 MTDD
== END 2023-08-20 12:51 | disposition home or self-care (01) ==
LOC: HO.NEURO 12:50
PROVIDERS: PCP Nurse Practitioner Family; Visit Provider Nurse Practitioner Family
DX: M62.81 Muscle weakness (generalized) (principal); M62.838 Other muscle spasm; R20.2 Paresthesia of skin; M54.16 Radiculopathy, lumbar region; M54.2 Cervicalgia; R13.10 Dysphagia, unspecified
CPT/HCPCS: 95886; 95911

== ENCOUNTER → 2023-08-20 12:53 | Outpatient (BNV) | payer OTHER, SELFPAY | PROVIDERS: PCP Nurse Practitioner Family; Visit Provider Physical Medicine & Rehabilitation | DX: G56.22 Lesion of ulnar nerve, left upper limb (principal); M25.511 Pain in right shoulder | CPT/HCPCS: 95886; 95911 ==

== ENCOUNTER → 2023-08-28 20:30 | Outpatient (REF) | payer OTHER, SELFPAY | LOC: HO.SL 20:30 | PROVIDERS: PCP Nurse Practitioner Family; Visit Provider Nurse Practitioner Family | DX: G47.33 Obstructive sleep apnea (adult) (pediatric) (principal); R06.83 Snoring; R06.02 Shortness of breath; G47.19 Other hypersomnia; K22.4 Dyskinesia of esophagus; R25.2 Cramp and spasm | CPT/HCPCS: 95810 ==

== ENCOUNTER → 2023-08-28 22:21 | Outpatient (BNV) | payer OTHER, SELFPAY | PROVIDERS: PCP Nurse Practitioner Family; Visit Provider Internal Medicine | DX: G47.33 Obstructive sleep apnea (adult) (pediatric) (principal) | CPT/HCPCS: 95810 ==

== ENCOUNTER 2023-09-11 15:07 | Outpatient (REF) | payer OTHER, SELFPAY ==
--- NOTE | 2023-09-11 15:11 | EMG_ITS ---
Chief complaint: For the last 2 years, she has had random muscle twitching, left eye, left thigh, right arm, lips, forehead. Chronic neck pain, comes random as well. Random numbness in all fingers, bilateral. Tends to drop things. Constant right shoulder pain. Besides dropping things, denies any other weakness. No atrophy. Also history of lumbar disc herniation, affecting left leg, 2021. Reason for referral: Evaluate for neuropathy Referred by: Akilah Sands OPERATOR [employer] Procedure done: Bilateral lower extremities (Bilateral upper extremities NCS/EMG done 08/20/23) Precautions and/or limitations: None The limb temperature was monitored continuously and remained between 32-36 degrees C during the performance of the NCS. Nerve Conduction Studies Anti Sensory Summary Table ?Stim Site NR Onset (ms) Norm Onset (ms) Peak (ms) Norm Peak (ms) O-P Amp (?V) Norm O-P Amp Site1 Site2 Delta-0 (ms) Dist (cm) Jeff (m/s) Norm Jeff (m/s) Left Sural Anti Sensory (Lat Mall) Calf ? 3.0 4.0 <4.0 6.1 >5.0 Right Sural Anti Sensory (Lat Mall) Calf ? 3.0 3.9 <4.0 7.5 >5.0 Motor Summary Table ?Stim Site NR Onset (ms) Norm Onset (ms) O-P Amp (mV) Norm O-P Amp iAmp (mV) Amp (1st) (%) Site1 Site2 Delta-0 (ms) Dist (cm) Jeff (m/s) Norm Jeff (m/s) Left Peroneal Motor (Ext Dig Brev) Ankle ? 5.2 <4.0 3.1 >2.5 3.5 100.0 Ankle Ext Dig Brev 5.2 0.0 B Fib ? 12.7 2.5 2.8 80.6 B Fib Ankle 7.5 34.0 45 >40 Poplt ? 13.5 2.6 2.9 83.9 Poplt B Fib 0.8 4.0 50 >40 Right Peroneal Motor (Ext Dig Brev) Ankle ? 6.1 <4.0 2.1 >2.5 2.9 100.0 Ankle Ext Dig Brev 6.1 0.0 B Fib ? 13.6 2.3 2.8 109.5 B Fib Ankle 7.5 33.5 45 >40 Poplt ? 14.8 1.9 2.2 90.5 Poplt B Fib 1.2 5.0 42 >40 Left Tibial Motor (Abd Weinberg Brev) Ankle ? 5.4 <5 4.3 >2.5 6.7 100.0 Ankle Abd Weinberg Brev 5.4 0.0 Knee ? 13.8 4.1 6.3 95.3 Knee Ankle 8.4 35.0 42 >40 Right Tibial Motor (Abd Weinberg Brev) Ankle ? 4.6 <5 6.4 >2.5 10.3 100.0 Ankle Abd Weinberg Brev 4.6 0.0 Knee ? 13.3 3.2 4.7 50.0 Knee Ankle 8.7 38.0 44 >40 H Reflex Studies ?NR H-Lat (ms) L-R H-Lat (ms) L-R Lat Norm Left Tibial (Gastroc) ? 21.91 2.75 <2.0 Right Tibial (Gastroc) ? 19.16 2.75 <2.0 EMG ?Side Muscle Nerve Root Ins Act Fibs Psw Amp Dur Poly Recrt Int Pat Comment Right AbdHallucis MedPlantar S1-2 Nml Nml Nml Nml Nml 0 Nml Complete Right AntTibialis Dp Br Peron L4-5 Nml Nml Nml Nml Nml 0 Nml Complete Right PostTibialis Tibial L5, S1 Nml Nml Nml Nml Nml 0 Nml Complete Right MedGastroc Tibial S1-2 Nml Nml Nml Nml Nml 0 Nml Complete Right VastusMed Femoral L2-4 Nml Nml Nml Nml Nml 0 Nml Complete Left AbdHallucis MedPlantar S1-2 Incr 1+ 1+ Nml Nml 0 Nml Complete Left AntTibialis Dp Br Peron L4-5 Nml Nml Nml Nml Nml 0 Nml Complete Left PostTibialis Tibial L5, S1 Nml Nml Nml Incr Incr 0 Nml Complete Left MedGastroc Tibial S1-2 Nml Nml Nml Nml Nml 1+ Nml Complete Left VastusMed Femoral L2-4 Nml Nml Nml Nml Nml 0 Nml Complete Left BicepsFemS Sciatic L5-S1 Nml Nml Nml Nml Nml 0 Nml Complete Paraspinal EMG ?Side Muscle Nerve Root Ins Act Fibs Psw Comment Right Lumbar Upper Rami Nml Nml Nml Right Lumbar Mid Rami Nml Nml Nml Right Lumbar Lower Rami Nml Nml Nml Left Lumbar Upper Rami Nml Nml Nml Left Lumbar Mid Rami Nml Nml Nml Left Lumbar Lower Rami Nml Nml Nml FINDINGS: Right peroneal nerve showed prolonged distal latency, small amplitude and normal conduction velocity. Left peroneal nerve showed prolonged distal latency, normal amplitude and normal conduction velocity. Left tibial nerve showed prolonged distal latency, normal amplitude and normal conduction velocity. Left H-reflex showed more prolonged latency as compared to right. All other nerves tested were within normal. Concentric needle EMG was performed in selected muscles of the bilateral lower extremity and lumbar paraspinals. Study revealed signs of electric abnormalities as shown in the table below. Left posterior tibialis showed increased duration and amplitude. Left medial gastrocnemius showed polyphasia. Left AH showed increased insertional activity, PSWs and fibrillations. IMPRESSION: 1. This is an abnormal study. 2. There is electrodiagnostic evidence for left L5-S1 radiculopathy, acute on chronic features. 3. Cannot rule out between a right L5-S1 radiculopathy versus a non localizable peroneal neuropathy. Higher suspicion for radiculopathy. 4. There is no electrodiagnostic evidence for tibial neuropathy. lumbosacral plexopathy, or peripheral neuropathy. CLINICAL COMMENT: Further clinical correlation recommended. Thank you for your kind referral. Blanca Longoria MD, YOGESH Board Certified, [place] Board [employer] Physical Medicine and Rehabilitation (ABPMR) Board Certified, [place] Board of Electrodiagnostic Medicine (ABEM) CODIN [id number] x 2 MTDD
== END 2023-09-11 15:08 | disposition home or self-care (01) ==
LOC: HO.NEURO 15:07
PROVIDERS: PCP Nurse Practitioner Family; Visit Provider Physical Medicine & Rehabilitation
DX: R20.2 Paresthesia of skin (principal)
CPT/HCPCS: 95886; 95910

== ENCOUNTER → 2023-09-11 15:11 | Outpatient (BNV) | payer OTHER, SELFPAY | PROVIDERS: PCP Nurse Practitioner Family; Visit Provider Physical Medicine & Rehabilitation | DX: M54.16 Radiculopathy, lumbar region (principal) | CPT/HCPCS: 95886; 95910 ==

== ENCOUNTER 2023-09-25 13:48 | Outpatient (REF) | payer OTHER, SELFPAY ==
--- NOTE | ~2023-09-25 | XR_ITS ---
EXAMINATION: XR CERVICAL SPINE CLINICAL INFORMATION: Neck pain COMPARISON: Cervical spine x-ray on 08/11/2016 TECHNIQUE: 6 views of the cervical spine, inclusive of flexion and extension views, were obtained. FINDINGS: The visualized cervical vertebrae are intact with normal alignment. Odontoid process is intact with normal C1/C2 lateral masses alignment. Pre-dental interval is normal. Pre vertebral soft tissue is normal in thickness. Multilevel sharp anterior syndesmophytes are seen from C3 to C6. Alignment of cervical spine is normal and stable in flexion and extension. Bilateral oblique x-rays of cervical spine show patent cervical neural foramina. XR/XR cervical spine w flex/ext IMPRESSION: 1. Interval increase in anterior C3-C6 sharp syndesmophytes. 2. No fracture or dislocation of cervical spine is seen. 3. Normal stable cervical spine alignment in flexion and extension is demonstrated.
--- NOTE | ~2023-09-25 | XR_ITS ---
EXAMINATION: XR SHOULDER, RIGHT CLINICAL INFORMATION: Right shoulder pain COMPARISON: Right shoulder x-ray on 01/17/2023 TECHNIQUE: AP external rotation, Grashey, scapular Y, and axillary views of the right shoulder. FINDINGS: BONES: Bony structures are intact. Unchanged tiny inferior right glenoid fossa osteophytes is seen. There is no focal bone destruction or periosteal reaction seen. JOINTS: Alignment of joints is normal. SOFT TISSUE: Soft tissue is normal. No radiopaque foreign body or abnormal air collection is seen. XR/XR shoulder RT min 2V IMPRESSION: 1. Unchanged mild right glenohumeral osteoarthritis. 2. No fracture or dislocation or signs of osteomyelitis are found.
[2023-09-25 16:17] LABS: MANUAL DIFF FLAG NO
[2023-09-25 16:46] LABS: Basophils Percent Auto 0.6 % (0-2); Eosinophils Absolute Auto 0.2 X10*3/uL (0.0-0.4); Eosinophils Percent Auto 3.2 % (0-4); Hematocrit 42.4 % (37.0-47.0); Imm Gran Abs Auto 0.03 X10*3/uL (0.00-0.03); Imm Gran Pct Auto 0.4 % (0.0-0.4); Lymphocytes Absolute Auto 2.5 X10*3/uL (1.2-4.9); Lymphocytes Percent Auto 36.5 % (20-40); Mean Corpuscular Hemoglobin 28.8 pg (27.0-33.0); Mean Corpuscular Volume 87.2 fL (80.0-98.0); Mean Platelet Volume 10.4 fL (9.4-12.3); Monocytes Absolute Auto 0.4 X10*3/uL (0.1-1.2); Monocytes Percent Auto 5.9 % (2-11); Neutrophils Absolute Auto 3.6 x10*3/uL (2.0-8.3); Neutrophils Percent Auto 53.4 % (45-73); Platelet Count 338 X10*3/uL (160-400); Red Blood Count 4.86 X10*6/uL (4.20-5.50); Red Cell Distribution Width 12.7 % (11.0-16.0); White Blood Count 6.8 X10*3/uL (4.8-10.8)
[2023-09-25 16:48] LABS: Alanine Aminotransferase 20 U/L (0-31); Albumin Level 4.1 g/dL (3.5-5.0); Alkaline Phosphatase 56 U/L (39-117); Anion Gap 17 (12-20); Aspartate Amino Transferase 15 U/L (5-31); Bilirubin Total 0.3 mg/dL (0.0-1.0); Blood Urea Nitrogen 12 mg/dL (9-16); Calcium 8.7 mg/dL (8.4-10.2); Carbon Dioxide 25 mmol/L (22-29); Chloride 100 mmol/L (96-108); Estimated Glomerular Filt Rate > 60; Glucose Random 340 mg/dL (60-115); Iron 89 mcg/dL (30-160); Percent Iron Saturation 28 % (15-50); Potassium 4.2 mmol/L (3.3-5.1); Sodium 138 mmol/L (135-145); Total Iron Binding Capacity 313 mcg/dL (228-428); Total Protein 7.1 g/dL (6.5-8.0); Unsaturated Iron Binding 224 ug/dL
[2023-09-25 16:56] LABS: Rheumatoid Factor < 13.0 IU/mL (<15.0)
[2023-09-25 17:07] LABS: Ferritin 22 ng/mL (10-250); TSH reflex Free T4 1.51 uIU/mL (0.32-4.0)
[2023-09-25 17:17] LABS: Folate 7.4 ng/mL (> or = 4.0); Vitamin B12 243 pg/mL (200-900)
[2023-09-25 17:28] LABS: Erythrocyte Sedimentation Rate 16 MM/HR (0-20)
[2023-09-28 13:43] LABS: CRP High Sensitivity 5.7 mg/L
[2023-09-30 14:18] LABS: Smooth Muscle Antibody <20 U (<20)
[2023-10-01 13:34] LABS: Anti Nuclear Antibody Screen NEGATIVE (NEGATIVE)
[2023-10-02 19:18] LABS: Acetylcholine Recep Modulating <1
[2023-10-03 17:04] LABS: Acetylcholine Receptor Binding <0.30 nmol/L
[2023-10-05 14:48] LABS: NMO IgG Autoantibodies NEGATIVE (NEGATIVE)
[2023-10-07 20:08] LABS: Acetylcholine Recept. Blocking <15 (<15)
== END 2023-09-25 13:49 | disposition home or self-care (01) ==
LOC: HO.HMGCX 13:48
PROVIDERS: PCP Nurse Practitioner Family; Referring Provider Nurse Practitioner Family; Visit Provider Nurse Practitioner Family
DX: M62.81 Muscle weakness (generalized) (principal); M54.2 Cervicalgia; M25.511 Pain in right shoulder; R13.10 Dysphagia, unspecified; R06.02 Shortness of breath; R00.2 Palpitations; R25.2 Cramp and spasm; M62.838 Other muscle spasm
CPT/HCPCS: 72052; 73030; 80053; 82550; 82607; 82728; 82746; 83540; 84443; 85025; 85652; 86015; 86038; 86041; 86042; 86043; 86052; 86141; 86366; 86431

== ENCOUNTER 2023-10-01 07:33 | Outpatient (AMB) | payer OTHER, SELFPAY ==
[2023-10-01 07:37] VITALS: BP 124/78; PULSE 82; O2SAT 98; BMI 35.4
--- NOTE | 2023-10-01 07:37 | MHC.OFFVIS ---
Intake Vital Signs 10/01/23 07:37 Height 5 ft 5 in Weight 213 lb BMI 35.4 BP 124/78 Blood Pressure Location Rt brachial Position Sitting Pulse 82 Pulse Source Pulse Oximeter Pulse Oximetry (%) 98 Oxygen Delivery Method Room Air Intake Visit Reasons: follow up-LVM Intake Note: Patient presents for follow up. patient here for results of my xrays. Allergies diphenhydramine [Benadryl] Allergy (Unknown, Verified 08/07/23 10:53) swelling, hives Benadryl Allergy (Unknown, Uncoded 08/07/23 10:53) hives Pumpkin Allergy (Unknown, Uncoded 08/07/23 10:53) unknown Seafood Allergy (Unknown, Uncoded 08/07/23 10:53) unknown Medication List - Last Reconciled 10/01/23 by HEATH Major albuterol sulfate 90 mcg/actuation (ProAir HFA) 2 puffs inhalation Q4-6H PRN alcohol swabs (Alcohol Pads) 1 pad topical BID 90 days alprazolam 1 mg PO BID 30 days atorvastatin 10 mg PO BEDTIME 90 days betamethasone dipropionate 0.05% 1 appl topical DAILY PRN blood sugar diagnostic (FreeStyle Lite Strips) As directed to test blood sugars TID a day blood-glucose meter (OrSenseStyle System Kit) Use to check blood sugar TID celecoxib 200 mg PO BID PRN cetirizine 10 mg PO DAILY 30 days duloxetine 40 mg PO ONCE epinephrine (EpiPen 2-Merrill) 0.3 mg (0.3 mL) IM ONCE PRN fenofibrate 54 mg PO DAILY flash glucose scanning reader (OrSenseStyle Jacob 2 [place]) tid testing flash glucose sensor (FreeStyle Jacob 2 Sensor kit) tid testing gabapentin 300 mg PO QID 30 days lancets (FreeStyle Lancets) Use to check blood sugar TID or as needed for signs/symptoms of hypo/hyperglycemia lisinopril 2.5 mg PO DAILY metformin 1,000 mg PO BID propranolol 40 mg PO BID semaglutide 1 mg (0.75 mL) subcut QWEEK Shower Chair daily sumatriptan succinate 50 - 100 mg orally at onset of headache, may repeat in 2 hrs PRN; max 2 tabs per day or 4 tabs/week 30 days tizanidine 4 mg PO BEDTIME PRN 15 days walker daily [walker with seat and wheels daily] HPI HPI Comments History of Present Illness Details 43-yr-old female presents for f/u visit, accompanied by her partner. Pt reports: Some recent milder headaches- can be a/w mild photophobia. No severe migraines. Blurry vision- left eye seems worse Left eye droop- not as often. unsure how often. Unsure of triggers. SOB- depends on the day- pulmonology does not think it is d/t her asthma- Dr Humphreys. Left temporal and Left upper arm- still has muscle spasms. Does have episodes of whole hand numbness- if sitting and not moving and holding her phone, or sleeping. Sometimes her left 1st and 2nd finger will tremor. Or 1st and 4th/5th finger will twitch. Cramps anywhere in the body. Restless legs- urge to move, restless sleep, need to rub her legs, creepy crawling sensation- even in her arms. Baseline headaches- can be milly occipital to frontal or bifrontal/temporal throbbing and sometimes sharp, photophobia, phonophobia, osmophobia, allodynia, nausea, dizziness, brain fog, activity tolerance. No known usual focal weakness. Celebrex helps- has occasional mild ANDERSON a/w photophobia. Without Celebrex- she was having 2 migraine attacks per week. Duration- 4-5 hrs up to 1 day. If she misses her Celebrex= she will have a severe migraine. Interval work-up:Hematology 04/20/23 07/23/23 09/25/23 11:36 17:13 13:58 WBC 6.8 RBC 4.86 Hgb 14.0 Hct 42.4 MCV 87.2 MCH 28.8 MCHC 33.0 RDW 12.7 Plt Count 338 MPV 10.4 Sodium 138 Potassium 4.2 Chloride 100 Carbon Dioxide 25 Anion Gap 17 BUN 12 Creatinine 0.82 Estimated GFR > 60 Random Glucose 340 H Hgb A1c (Clinic) 8.6 H 12.4 H 09/25/23 13:58 Calcium 8.7 Iron 89 TIBC 313 % Saturation 28 Unsat Iron Binding 224 Ferritin 22 Total Bilirubin 0.3 AST 15 ALT 20 Alkaline Phosphata se 56 Total Creatine Kin ase 37 C-React Prot High Sens 5.7 H Total Protein 7.1 Albumin 4.1 Vitamin B12 243 Folate 7.4 TSH 1.51 Rheumatoid Factor < 13.0 NASRIN Screen NEGATIVE NMO/AQP-4 IgG Ab Pending Anti-MuSK Ab Metho d Pending Anti-Smooth Muscle Ab <20 Acetylchol Rcpt Bl ock Ab Pending 09/25/23, C-spine x-ray w/ flex/ext: Interval increase in anterior C3-C6 sharp syndesmophytes. No fracture or dislocation of cervical spine is seen. Normal stable cervical spine alignment in flexion and extension demonstrated. 09/04/23, in-lab PSG: inconclusive as not enough sleep time recorded, sleep efficiency 24%, during time slept AHI 7.5/hr w/ K2srtya 88%. 09/11/23, BLE EMG/NCS: Electrodiagnostic evidence for left L5-S1 radiculopathy, acute on chronic features. Cannot rule out between a right L5-S1 radiculopathy versus a non localizable peroneal neuropathy. Higher suspicion for radiculopathy. 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 Work-Up: 04/29/23, Brain MRI w/wo- normal 03/05/23 CXR- normal 03/05/22 Neck CTA- normal 03/05/23 Head CTA- normal 03/05/23 CT brain wo- no acute findings 02/09/23 CR barrium swallow- mild esophageal dysmotility 01/20/23 Transthoracic Echocardiogram- normal 01/19/23 24 hr Holter- NSR, 2 PACs. No PVCs. 06/20/22 L-spine MRI w/o: L4-L5- mild right paracentral disc bulge. L5-S1- mild degenertaive change, large left paracentral disc protrusion, likely impinging left S1 nerve root, milly lateral recess stenosis, mod central canal stenosis, mild right and mild-mod left neural foraminal stenosis (full report in chart). [facility] Medical History Arthritis Hypermobility arthralgia Surgical History No pertinent past surgical history Family History Other Mental health disorder Substance use disorder Social History Housing: House Alcohol intake: current Alcohol intake frequency: holidays/special occasions only Patient Tobacco Use Status: Former Tobacco user Quit Date: 06/17 Tobacco use type: Cigarette e-Cigarette/Vaping Use: Never Used Second Hand Smoke Exposure: Yes Substance Use Type: Marijuana service: No Current occupational status: unemployed Cognitive needs: No Hearing needs: No Vision needs: Yes (contacts) Review of Systems Const All systems reviewed & are unremarkable except as noted in HPI and below Physical Exam Vital Signs: Last Vital Signs Pulse 82 10/01/23 07:37 BP 124/78 10/01/23 07:37 Pulse Ox 98 10/01/23 07:37 Oxygen Delivery Method Room Air 10/01/23 07:37 BMI result Body Mass Index 35.4 Const General: cooperative and no acute distress Orientation/consciousness: patient oriented x3 HEENT Head: Yes normocephalic Resp Effort & Inspection: normal respiratory effort and able to speak in complete sentences Neuro Other: Pupil asymmetry- chronic General: patient oriented x3 and gait normal Cognition (Neuro): normal cognition Motor exam (neuro): 5/5 motor strength present throughout Psych Appearance: grossly normal Mental Status: mental status grossly normal Speech and movement: Normal speech and movement present Affect: normal affect Attitude: cooperative Thought process: Normal thought process present Thought content: Normal thought content present Insight: Good insight present (Psych) Judgement: Good judgement present (Psych) Assessment & Plan Assessment & Plan (1) Migraine: Code(s): G43.909 - Migraine, unspecified, not intractable, without status migrainosus (2) Low ferritin level: Code(s): R79.0 - Abnormal level of blood mineral (3) Ulnar neuropathy: Code(s): G56.20 - Lesion of ulnar nerve, unspecified upper limb (4) Excessive daytime sleepiness: Code(s): G47.19 - Other hypersomnia (5) Snoring: Code(s): R06.83 - Snoring (6) Esophageal dysmotility: Code(s): K22.4 - Dyskinesia of esophagus (7) Muscle spasm: Code(s): M62.838 - Other muscle spasm (8) Muscle cramps: Code(s): R25.2 - Cramp and spasm (9) Muscle weakness: Code(s): M62.81 - Muscle weakness (generalized) (10) Sleep difficulties: Code(s): G47.9 - Sleep disorder, unspecified Plan Reviewed labs- notable for ferritin 22. B-12 low normal 243 w/ folate 7. CRP 5.7 H, Recent HgA1c further elevated > 12%. ACHR-Ap nd anti-Musk pending. Reviewed in-lab PSG: inconclusive. Reviewed BUE EMG/NCS: left ulnar neuropathy at the elbow. Will refer pt to PT. Reviewed C-spine x-ray w/ flex/ext: Interval increase in anterior C3-C6 sharp syndesmophytes. Reviewed BLE EMG/NCS: left L5-S1 radiculopathy, acute on chronic features, and probabale right L5-S1 radiculopathy versus a non localizable peroneal neuropathy. Discussed that at this time, will need to manage conservatively as diabetes is sub-optimally controlled. Previous work-up- most notable for esophageal dysmotility in a 43 yr old pt, and L5-S1 large paracentral disc protrusion measuring 1 cm anleroposteriorly w/ central canal stenosis and milly L > R neural foraminal stenosis. For low ferritin in setting of RLS s/s: start Ferrous sulfate 325mg qd w/ vit C, prn colace. Check MMA and homocysteine levels to better assess for b-12 def. Pt advised to undergo HST to better assess for sleep apnea. Information shared on sleep education resources. PT eval & tx for LUE ulnar neuropathy, muscle twitching, spasms. For headache and migraine prevention: Start Riboflavin and Magnesium. Sumatriptan prn acute migraine attack. Monitor weakness, esophageal dysmotility, SOB. Future consideration: trial of Mestinon. ? f/u up in review of above and in-clinic in 3 months or sooner prn. Orders: Orders PT Evaluation and Treatment Today G56.20 - Lesion of ulnar nerve, unspecified upper limb, M54.2 - Cervicalgia, M62.838 - Other muscle spasm RT home sleep study Today G47.19 - Other hypersomnia, G47.9 - Sleep disorder, unspecified, R06.83 - Snoring Homocysteine Today R79.0 - Abnormal level of blood mineral Methylmalonic Acid Today R79.0 - Abnormal level of blood mineral Medications: New riboflavin (vitamin B2) 400 mg PO DAILY 30 days 30 tabs 6RF ferrous sulfate 325 mg PO DAILY 30 days 30 tabs 3RF ascorbate calcium (vitamin C) 500 mg PO DAILY 30 days 30 tabs 3RF docusate sodium (Colace) 100 mg PO BID 30 days PRN 60 caps 3RF constipation magnesium oxide may hold for loose stools 400 mg PO BEDTIME 30 days 30 tabs 6RF Coding Level of Care Code Est Pt Level 4 (82897) Diagnoses Migraine G43.909 Low ferritin level R79.0 Ulnar neuropathy G56.20 Excessive daytime sleepiness G47.19 Snoring R06.83 Esophageal dysmotility K22.4 Muscle spasm M62.838 Muscle cramps R25.2 Muscle weakness M62.81 Sleep difficulties G47.9
== END 2023-10-01 08:46 | disposition home or self-care (01) ==
PROVIDERS: PCP Nurse Practitioner Family; Visit Provider Nurse Practitioner Family
DX: G43.909 Migraine, unspecified, not intractable, without status migrainosus (principal); R79.0 Abnormal level of blood mineral; G56.22 Lesion of ulnar nerve, left upper limb; G47.19 Other hypersomnia; K22.4 Dyskinesia of esophagus; R06.83 Snoring; R25.2 Cramp and spasm; M62.81 Muscle weakness (generalized); G47.9 Sleep disorder, unspecified
CPT/HCPCS: 99214

== ENCOUNTER → 2023-10-01 07:33 | Outpatient (BNVA) | payer OTHER, SELFPAY | PROVIDERS: PCP Nurse Practitioner Family; Visit Provider Nurse Practitioner Family | DX: G43.909 Migraine, unspecified, not intractable, without status migrainosus (principal); G56.20 Lesion of ulnar nerve, unspecified upper limb; G47.19 Other hypersomnia; G47.9 Sleep disorder, unspecified; R79.0 Abnormal level of blood mineral; R06.83 Snoring; R25.2 Cramp and spasm; K22.4 Dyskinesia of esophagus; M62.81 Muscle weakness (generalized); M62.838 Other muscle spasm | CPT/HCPCS: 99212 ==

== ENCOUNTER 2023-12-16 14:41 | Outpatient (AMB) | payer OTHER, SELFPAY ==
[2023-12-16 14:45] VITALS: BP 100/70; PULSE 91; O2SAT 96; BMI 33.6
--- NOTE | 2023-12-16 14:45 | MHC.PC.OV ---
Vital Signs 12/16/23 14:45 Height 5 ft 5 in Weight 202 lb BMI 33.6 BP 100/70 Blood Pressure Location Rt brachial Position Sitting Pulse 91 Pulse Source Pulse Oximeter Pulse Oximetry (%) 96 Oxygen Delivery Method Room Air Intake Visit Reasons: DM and cold symptoms Intake Note: Patient here to discuss her recent cold like symptoms. Allergies diphenhydramine [Benadryl] Allergy (Unknown, Verified 12/16/23 17:12) swelling, hives Benadryl Allergy (Unknown, Uncoded 12/16/23 17:12) hives Pumpkin Allergy (Unknown, Uncoded 12/16/23 17:12) unknown Seafood Allergy (Unknown, Uncoded 12/16/23 17:12) unknown Medication List - Last Reconciled 12/16/23 by HEATH Miller- albuterol sulfate 90 mcg/actuation (ProAir HFA) 2 puffs inhalation Q4-6H PRN alcohol swabs (Alcohol Pads) 1 pad topical BID 90 days alprazolam 1 mg PO BID 30 days ascorbate calcium (vitamin C) 500 mg PO DAILY 30 days atorvastatin 10 mg PO BEDTIME 90 days betamethasone dipropionate 0.05% 1 appl topical DAILY PRN blood sugar diagnostic (FreeStyle Lite Strips) As directed to test blood sugars TID a day blood-glucose meter (BeMyEyeStyle System Kit) Use to check blood sugar TID celecoxib 200 mg PO BID PRN cetirizine 10 mg PO DAILY 30 days docusate sodium (Colace) 100 mg PO BID PRN 30 days duloxetine 40 mg PO ONCE epinephrine (EpiPen 2-Merrill) 0.3 mg (0.3 mL) IM ONCE PRN fenofibrate 54 mg PO DAILY ferrous sulfate 325 mg PO DAILY 30 days flash glucose scanning reader (BeMyEyeStyle Jacob 2 [place]) tid testing flash glucose sensor (FreeStyle Jacob 2 Sensor kit) tid testing gabapentin 300 mg PO QID 30 days insulin degludec (Tresiba FlexTouch U-100 insulin) 12 units (0.12 mL) subcut DAILY 30 days lancets (FreeStyle Lancets) Use to check blood sugar TID or as needed for signs/symptoms of hypo/hyperglycemia lisinopril 2.5 mg PO DAILY magnesium oxide 400 mg PO BEDTIME 30 days metformin 1,000 mg PO BID oxycodone-acetaminophen 5-325 mg (Percocet) 1 tab PO Q12H PRN 10 days propranolol 40 mg PO BID riboflavin (vitamin B2) 400 mg PO DAILY 30 days semaglutide 1 mg (0.75 mL) subcut QWEEK Shower Chair daily sumatriptan succinate 50 - 100 mg orally at onset of headache, may repeat in 2 hrs PRN; max 2 tabs per day or 4 tabs/week 30 days tizanidine 4 mg PO BEDTIME PRN 15 days walker daily [walker with seat and wheels daily] Tobacco use date assessed: 12/16/23 Dental Screening Dental Screen Date: 12/16/23 HPI DM and cold symptoms HPI Details Pt reports symptoms of a viral illness. She reports developing a tickle in her throat yesterday. She then developed congestion and chills today. Will swab for COVID/flu/RSV. Pt is an uncontrolled diabetic, on an SURJIT and a statin. A1C in office today is 10.3. Due for microalbumin, will order. Denies polyuria, polydipsia, and neuropathy. Pt denies any signs and symptoms of hypoglycemia and does know how to correct it. Pt reports that her blood sugar has been elevated. Will start tresiba 12 units. Pt would like a referral to endo due to diabetes and PCOS, will refer. Eye exam is up to date according to pt. COUNT INCLUDES [facility] Medical History Arthritis Hypermobility arthralgia Surgical History No pertinent past surgical history Family History Other Mental health disorder Substance use disorder Social History Housing: House Alcohol intake: current Alcohol intake frequency: holidays/special occasions only Patient Tobacco Use Status: Former Tobacco user Quit Date: 06/17 Tobacco use type: Cigarette e-Cigarette/Vaping Use: Never Used Second Hand Smoke Exposure: Yes Substance Use Type: Marijuana service: No Current occupational status: unemployed Cognitive needs: No Hearing needs: No Vision needs: Yes (contacts) Questionnaire PHQ-9 Over the last 2 weeks, how often have you been bothered by any of the following problems? 79487 - PHQ-9 Billing: Patient declined-do not bill Source: Developed by Drs. Matthew Walton, Eloy Barnes and colleagues, with an educational bryce from [employer]. Thrive Questionnaire Date Thrive assessed: 10/07/22 RADHA-7 AMB Questionnaire RADHA-7 Date RADHA - 7 assessed: 10/07/22 Source: Developed by Drs. Matthew Walton, Jazzmine Florian, Eloy Jaramillo and colleagues, with an educational bryce from [employer]. RADHA-7 Assessment Billing RADHA-7 Assessment Tool: pt declined-do not bill Review of Systems Const Reports as per HPI Physical exam (Primary Care) Vital Signs: Last Vital Signs Pulse 91 12/16/23 14:45 BP 100/70 12/16/23 14:45 Pulse Ox 96 12/16/23 14:45 Oxygen Delivery Method Room Air 12/16/23 14:45 BMI result Body Mass Index 33.6 Tobacco/Smoking Status: Tobacco use Status Tobacco use date assessed 12/16/23 12/16/23 14:50 Patient Tobacco Use Status Former Tobacco user 12/16/23 14:45 Tobacco use type Cigarette 12/16/23 14:45 e-Cigarette/Vaping Use Never Used 12/16/23 14:45 Thrive Assessment: Date of Thrive Assessment Date Thrive assessed 10/07/22 12/16/23 14:45 Const General: cooperative Nutritional Appearance: obese Orientation/consciousness: patient oriented x3 HENMT Ears: TM normal on the right and TM normal on the left Throat: Yes posterior oropharynx normal Neck Lymphatic: no lymphadenopathy noted Resp Effort & Inspection: normal respiratory effort Auscultation: clear to auscultation bilaterally Cardio Rate: regular rate Rhythm: regular rhythm Heart sounds: S1 normal heart sound present and S2 normal heart sound present Neuro General: patient oriented x3 Extrem Other: bilat feet: + sensation with use of monofilament, feet intact Psych Appearance: grossly normal Mental Status: mental status grossly normal Speech and movement: Normal speech and movement present Affect: normal affect Attitude: cooperative Thought process: Normal thought process present Thought content: Normal thought content present Insight: Good insight present (Psych) Judgement: Good judgement present (Psych) Results AMB Hemoglobin A1c AMB Hemoglobin A1c 10.3 % Last Edit by ETHEL Laughlin on 12/16/23 15:03 Assessment and Plan Assessment & Plan (1) Uncontrolled diabetes mellitus: Code(s): E11.65 - Type 2 diabetes mellitus with hyperglycemia Plan: Labs ordered, starting tresiba 12 units, referred to endo, ozempic increased from 1mg to 2mg (2) Viral illness: Code(s): B34.9 - Viral infection, unspecified Plan: Swabbed for COVID/flu/RSV (3) Diabetes: Code(s): E11.9 - Type 2 diabetes mellitus without complications Plan: referred to endo, starting long acting insulin at 12 units (4) PCOS (polycystic ovarian syndrome): Code(s): E28.2 - Polycystic ovarian syndrome Plan: referred to endo Plan The patient agreed to the use of a medical insurance claims processor for this encounter. Scribed for HEATH Morales-CLINT by Yari Cartagena medical insurance claims processor, on 12/16/2023 at 14:55 EST. Orders: Orders Complete Blood Count Auto Diff Today E11.65 - Type 2 diabetes mellitus with hyperglycemia Comprehensive [place]. Panel Fast Today E11.65 - Type 2 diabetes mellitus with hyperglycemia UA CC w/rflx Micro + Cult Today E11.65 - Type 2 diabetes mellitus with hyperglycemia Lipid Panel Today E11.65 - Type 2 diabetes mellitus with hyperglycemia TSH reflex Free T4 Today E11.65 - Type 2 diabetes mellitus with hyperglycemia Microalbumin, Random (w Creat) Today E11.65 - Type 2 diabetes mellitus with hyperglycemia SARS-CoV2/FLU/RSV Today B34.9 - Viral infection, unspecified AMB Hemoglobin A1c Today Z13.9 - Encounter for screening, unspecified Referrals Endocrinology Referral E11.9 - Type 2 diabetes mellitus without complications, E28.2 - Polycystic ovarian syndrome Medications: New insulin degludec (Tresiba FlexTouch U-100 insulin) 12 units (0.12 mL) subcut DAILY 30 days 3.6 mL 3RF Changed From semaglutide 1 mg (0.75 mL) subcut QWEEK 9 mL 1RF To semaglutide 2 mg (0.75 mL) subcut QWEEK 3 mL 1RF Coding Level of Care Code Est Pt Level 3 (27725) Diagnoses Uncontrolled diabetes mellitus E11.65 Viral illness B34.9 Diabetes E11.9 PCOS (polycystic ovarian syndrome) E28.2
== END 2023-12-16 15:41 | disposition home or self-care (01) ==
LOC: HO.HMGC 14:41
PROVIDERS: PCP Nurse Practitioner Family; Visit Provider Nurse Practitioner Family
DX: E11.65 Type 2 diabetes mellitus with hyperglycemia (principal); B34.9 Viral infection, unspecified; E28.2 Polycystic ovarian syndrome
CPT/HCPCS: 83036; 99213

== ENCOUNTER 2023-12-16 15:59 | Outpatient (REF) | payer OTHER, SELFPAY ==
[2023-12-16 17:29] LABS: Influenza A PCR NEGATIVE (Negative); Influenza B PCR NEGATIVE (Negative); Resp Syncy Virus RNA Qual PCR NEGATIVE (Negative); SARS COV2 PCR INHOUSE NEGATIVE (Negative)
== END 2023-12-16 16:00 | disposition home or self-care (01) ==
LOC: HO.LNP 15:59
PROVIDERS: Visit Provider Nurse Practitioner Family
DX: B34.9 Viral infection, unspecified (principal)
CPT/HCPCS: 0241U

== ENCOUNTER 2024-01-26 12:41 | Outpatient (AMB) | payer OTHER, SELFPAY ==
--- NOTE | 2024-01-26 12:42 | A.OFFPC_ITS ---
Vital Signs 01/26/24 12:44 Height 5 ft 5 in Weight 204 lb BMI 33.9 BP 120/90 H Blood Pressure Location Lt brachial Position Sitting Pulse 76 Pulse Source Pulse Oximeter Pulse Oximetry (%) 98 Oxygen Delivery Method Room Air Intake Visit Reasons: Annual PE Intake Note: Patient here for physical exam. Pap: overdue mammo: overdue Allergies diphenhydramine [Benadryl] Allergy (Unknown, Verified 01/26/24 12:45) swelling, hives Benadryl Allergy (Unknown, Uncoded 01/26/24 12:45) hives Pumpkin Allergy (Unknown, Uncoded 01/26/24 12:45) unknown Seafood Allergy (Unknown, Uncoded 01/26/24 12:45) unknown Medication List - Last Reconciled 01/26/24 by Isaac Boykin, [facility]- albuterol sulfate 90 mcg/actuation (ProAir HFA) 2 puffs inhalation Q4-6H PRN alcohol swabs (Alcohol Pads) 1 pad topical BID 90 days alprazolam 1 mg PO BID 30 days ascorbate calcium (vitamin C) 500 mg PO DAILY 30 days atorvastatin 10 mg PO BEDTIME 90 days betamethasone dipropionate 0.05% 1 appl topical DAILY PRN blood sugar diagnostic (FreeStyle Lite Strips) As directed to test blood sugars TID a day blood-glucose meter (StonewedgeStyle System Kit) Use to check blood sugar TID celecoxib 200 mg PO BID PRN cetirizine 10 mg PO DAILY 30 days docusate sodium (Colace) 100 mg PO BID PRN 30 days duloxetine 40 mg PO ONCE epinephrine (EpiPen 2-Merrill) 0.3 mg (0.3 mL) IM ONCE PRN fenofibrate 54 mg PO DAILY ferrous sulfate 325 mg PO DAILY 30 days flash glucose scanning reader (StonewedgeStyle Jacob 2 [place]) tid testing flash glucose sensor (FreeStyle Jacob 2 Sensor kit) tid testing gabapentin 300 mg PO QID 30 days insulin degludec (Tresiba FlexTouch U-100 insulin) 12 units (0.12 mL) subcut DAILY 30 days lancets (FreeStyle Lancets) Use to check blood sugar TID or as needed for signs/symptoms of hypo/hyperglycemia lisinopril 2.5 mg PO DAILY magnesium oxide 400 mg PO BEDTIME 30 days metformin 1,000 mg PO BID oxycodone-acetaminophen 5-325 mg (Percocet) 1 tab PO Q12H PRN 10 days propranolol 40 mg PO BID riboflavin (vitamin B2) 400 mg PO DAILY 30 days semaglutide 2 mg (0.75 mL) subcut QWEEK Shower Chair daily sumatriptan succinate 50 - 100 mg orally at onset of headache, may repeat in 2 hrs PRN; max 2 tabs per day or 4 tabs/week 30 days tizanidine 4 mg PO BEDTIME PRN 15 days walker daily [walker with seat and wheels daily] Tobacco use date assessed: 12/16/23 Dental Screening Dental Screen Date: 12/16/23 HPI Annual PE HPI Details Pt is here for a PE. Labs have been ordered. Due for mammo, will order. Pt is a diabetic, she has been referred to endo. [facility] Medical History Arthritis Hypermobility arthralgia Surgical History No pertinent past surgical history Family History Other Mental health disorder Substance use disorder Social History Housing: House Alcohol intake: current Alcohol intake frequency: holidays/special occasions only Patient Tobacco Use Status: Former Tobacco user Tobacco use type: Cigarette e-Cigarette/Vaping Use: Never Used Second Hand Smoke Exposure: Yes Substance Use Type: Marijuana service: No Current occupational status: unemployed Cognitive needs: No Hearing needs: No Vision needs: Yes (contacts) Questionnaire PHQ-9 Over the last 2 weeks, how often have you been bothered by any of the following problems? 77097 - PHQ-9 Billing: Patient declined-do not bill Source: Developed by Drs. Matthew Walton, Jazzmine Florian, Eloy Jaramillo and colleagues, with an educational bryce from [employer]. Thrive Questionnaire Date Thrive assessed: 10/07/22 RADHA-7 AMB Questionnaire RADHA-7 Date RADHA - 7 assessed: 10/07/22 Source: Developed by Drs. Matthew Walton, Jazzmine lForian, Eloy Jaramillo and colleagues, with an educational bryce from [employer]. RADHA-7 Assessment Billing RADHA-7 Assessment Tool: pt declined-do not bill Review of Systems Const Denies chills and Denies fever(s) Eyes Denies blurry vision ENT Denies vertigo, Denies dizziness and Denies sore throat Card Denies chest pain at rest, Denies chest pain with activity, Denies diaphoresis, Denies dyspnea and Denies dyspnea on exertion Resp Denies cough, Denies dyspnea, Denies dyspnea on exertion and Denies wheezing GI Denies abdominal pain, Denies melena, Denies hematochezia, Denies constipation, Denies diarrhea and Denies loose stools Denies hematuria Musc Denies numbness and Denies tingling Skin/Breast Denies lesions Neuro Denies vertigo, Denies dizziness, Denies numbness and Denies tingling Psych Denies anxiety, Denies depression, Denies homicidal ideation, Denies suicidal ideation and Denies other (substance abuse) Aller/Immun Denies wheezing Physical exam (Primary Care) Vital Signs: Last Vital Signs Pulse 76 01/26/24 12:44 BP 120/90 H 01/26/24 12:44 Pulse Ox 98 01/26/24 12:44 Oxygen Delivery Method Room Air 01/26/24 12:44 BMI result Body Mass Index 33.9 Tobacco/Smoking Status: Tobacco use Status Tobacco use date assessed 12/16/23 01/26/24 12:43 Patient Tobacco Use Status Former Tobacco user 01/26/24 12:43 Tobacco use type Cigarette 01/26/24 12:43 e-Cigarette/Vaping Use Never Used 01/26/24 12:43 Thrive Assessment: Date of Thrive Assessment Date Thrive assessed 10/07/22 01/26/24 12:43 Const General: cooperative Nutritional Appearance: obese Orientation/consciousness: patient oriented x3 HENMT Head: Yes normal to inspection, Yes normocephalic and Yes atraumatic Ears: TM's normal bilaterally Eyes General: appearance normal, both eyes and all related structures Alignment and Position: alignment normal and position normal Neck Neck: Yes normal visual inspection and Yes no lymphadenopathy Thyroid: Thyroid normal Resp Effort & Inspection: normal respiratory effort Auscultation: clear to auscultation bilaterally Cardio Other: holter monitor on Rate: regular rate Rhythm: regular rhythm Heart sounds: S1 normal heart sound present, S2 normal heart sound present and no murmurs GI Other: diastasis rectis noted Palpation (GI): Soft to palpation and nontender Auscultation: normal bowel sounds Skin Other: varicose veins noted to BLE Rashes: no rashes Neuro General: patient oriented x3, moves all extremities, no focal motor deficits and deep tendon reflexes 2+ bilaterally Romberg Test: Negative Psych Appearance: grossly normal Mental Status: mental status grossly normal Speech and movement: Normal speech and movement present Affect: normal affect Attitude: cooperative Thought process: Normal thought process present Thought content: Normal thought content present Insight: Good insight present (Psych) Judgement: Good judgement present (Psych) Assessment and Plan Assessment & Plan (1) Physical exam: Code(s): Z00.00 - Encounter for general adult medical examination without abnormal findings Plan The patient agreed to the use of a clinical laboratory medical director for this encounter. Scribed for TASIA Morales by Yari Cartagena clinical laboratory medical director, on 01/26/2024 at 12:50 EST. Orders: Orders MM screening mammo BI Today Z12.31 - Encounter for screening mammogram for malignant neoplasm of breast Medications: Discontinued oxycodone-acetaminophen 5-325 mg (Percocet) Partial Fill upon patient request. Please do not share med, take only as prescribed, cannot drive while on med Discontinued Reason: No Longer Medically Relevant 1 tab PO Q12H 10 days PRN 20 tabs 0RF pain Coding Level of Care Code Est Pt Prev Care 40-64y(16540) Diagnoses Physical exam Z00.00
[2024-01-26 12:44] VITALS: BP 120/90; PULSE 76; O2SAT 98; BMI 33.9
== END 2024-01-26 13:13 | disposition home or self-care (01) ==
LOC: HO.HMGC 12:41
PROVIDERS: PCP Nurse Practitioner Family; Visit Provider Nurse Practitioner Family
DX: Z00.00 Encounter for general adult medical examination without abnormal findings (principal)
CPT/HCPCS: 99396

== ENCOUNTER 2024-01-29 14:30 | Outpatient (AMB) | payer OTHER, SELFPAY ==
--- NOTE | 2024-01-29 14:33 | A.OFFVIS_ITS ---
Vital Signs 01/29/24 14:37 Height 5 ft 5 in Weight 207 lb 4 oz BMI 34.5 BP 112/74 Blood Pressure Location Lt brachial Position Sitting Pulse 93 Pulse Source Pulse Oximeter Pulse Oximetry (%) 98 Oxygen Delivery Method Room Air Intake Visit Reasons: follow up-LVM Intake Note: Patient presents for f/u. Allergies diphenhydramine [Benadryl] Allergy (Unknown, Verified 01/29/24 14:36) swelling, hives Benadryl Allergy (Unknown, Uncoded 01/26/24 12:45) hives Pumpkin Allergy (Unknown, Uncoded 01/26/24 12:45) unknown Seafood Allergy (Unknown, Uncoded 01/26/24 12:45) unknown Medication List - Last Reconciled 01/29/24 by HEATH Major albuterol sulfate 90 mcg/actuation (ProAir HFA) 2 puffs inhalation Q4-6H PRN alcohol swabs (Alcohol Pads) 1 pad topical BID 90 days alprazolam 1 mg PO BID 30 days ascorbate calcium (vitamin C) 500 mg PO DAILY 30 days atorvastatin 10 mg PO BEDTIME 90 days betamethasone dipropionate 0.05% 1 appl topical DAILY PRN blood sugar diagnostic (FreeStyle Lite Strips) As directed to test blood sugars TID a day blood-glucose meter (GateMeStyle System Kit) Use to check blood sugar TID celecoxib 200 mg PO BID PRN cetirizine 10 mg PO DAILY 30 days docusate sodium (Colace) 100 mg PO BID PRN 30 days duloxetine 40 mg PO ONCE epinephrine (EpiPen 2-Merrill) 0.3 mg (0.3 mL) IM ONCE PRN fenofibrate 54 mg PO DAILY ferrous sulfate 325 mg PO DAILY 30 days flash glucose scanning reader (GateMeStyle Jacob 2 [place]) tid testing flash glucose sensor (FreeStyle Jacob 2 Sensor kit) tid testing gabapentin 300 mg PO QID 30 days insulin degludec (Tresiba FlexTouch U-100 insulin) 12 units (0.12 mL) subcut DAILY 30 days lancets (GateMeStyle Lancets) Use to check blood sugar TID or as needed for signs/symptoms of hypo/hyperglycemia lisinopril 2.5 mg PO DAILY magnesium oxide 400 mg PO BEDTIME 30 days metformin 1,000 mg PO BID pen needle, diabetic Use to inject insulin once a day propranolol 40 mg PO BID riboflavin (vitamin B2) 400 mg PO DAILY 30 days semaglutide 2 mg (0.75 mL) subcut QWEEK Shower Chair daily sumatriptan succinate 50 - 100 mg orally at onset of headache, may repeat in 2 hrs PRN; max 2 tabs per day or 4 tabs/week 30 days tizanidine 4 mg PO BEDTIME PRN 15 days walker daily [walker with seat and wheels daily] HPI Comments Details: 43-yr-old female presents for f/u visit. Pt denies any significant interval medical changes. Pt is still having difficulty sleeping. She is having more BUE L > R tingling, numbness, weakness, and dropping things. The left hand may become stuck and postured. She is also having pain moving from the left hamstring region through the foot. The leg will sometimes become stiff and posture. This occurs w/ both rest and activity. She did do PT- which helped headaches and right shoulder pain, but still has neck pain. Headaches are better- not having many headaches at all. 09/11/23, BLE EMG/NCS: IMPRESSION: 1. This is an abnormal study. 2. There is electrodiagnostic evidence for left L5-S1 radiculopathy, acute on chronic features. 3. Cannot rule out between a right L5-S1 radiculopathy versus a non localizable peroneal neuropathy. Higher suspicion for radiculopathy. 4. There is no electrodiagnostic evidence for tibial neuropathy. lumbosacral plexopathy, or peripheral neuropathy. 08/20/23BUE EMG/NCS IMPRESSION: 1. This is an abnormal study. 2. 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 3. There is no electrodiagnostic evidence for median neuropathy, brachial plexopathy, or cervical radiculopathy. No ulnar neuropathy on the right. [facility] Medical History Arthritis Hypermobility arthralgia Surgical History No pertinent past surgical history Family History Other Mental health disorder Substance use disorder Social History Housing: House Alcohol intake: current Alcohol intake frequency: holidays/special occasions only Patient Tobacco Use Status: Former Tobacco user Tobacco use type: Cigarette e-Cigarette/Vaping Use: Never Used Second Hand Smoke Exposure: Yes Substance Use Type: Marijuana service: No Current occupational status: unemployed Cognitive needs: No Hearing needs: No Vision needs: Yes (contacts) Physical Exam Vital Signs: Last Vital Signs Pulse 93 01/29/24 14:37 BP 112/74 01/29/24 14:37 Pulse Ox 98 01/29/24 14:37 Oxygen Delivery Method Room Air 01/29/24 14:37 BMI result Body Mass Index 34.5 Const General: cooperative and no acute distress Orientation/consciousness: patient oriented x3 Resp Effort & Inspection: normal respiratory effort and able to speak in complete sentences Neuro General: patient oriented x3 Cranial nerves: Yes CN's II-XII intact bilaterally Cognition (Neuro): normal cognition Psych Appearance: grossly normal Mental Status: mental status grossly normal Speech and movement: Normal speech and movement present Affect: normal affect Attitude: cooperative Assessment & Plan Assessment & Plan (1) Muscle spasm: Code(s): M62.838 - Other muscle spasm Category: Medical (2) Paresthesia: Code(s): R20.2 - Paresthesia of skin Category: Medical (3) Low ferritin level: Code(s): R79.0 - Abnormal level of blood mineral Category: Medical (4) Migraine: Code(s): G43.909 - Migraine, unspecified, not intractable, without status migrainosus Category: Medical (5) Lumbar nerve root impingement: Code(s): M54.16 - Radiculopathy, lumbar region Category: Medical Plan Reviewed labs- notable for ferritin 22. B-12 low normal 243 w/ folate 7. CRP 5.7 H, Recent HgA1c further elevated > 12%. ACHR-Ap nd anti-Musk normal. Reviewed in-lab PSG: inconclusive. Reviewed BUE EMG/NCS: left ulnar neuropathy at the elbow. Will refer pt to PT. Reviewed C-spine x-ray w/ flex/ext: Interval increase in anterior C3-C6 sharp syndesmophytes. Reviewed BLE EMG/NCS: left L5-S1 radiculopathy, acute on chronic features, and probabale right L5-S1 radiculopathy versus a non localizable peroneal neuropathy. Discussed that at this time, will need to manage conservatively as diabetes is sub-optimally controlled. Previous work-up- most notable for esophageal dysmotility in a 43 yr old pt, and L5-S1 large paracentral disc protrusion measuring 1 cm anleroposteriorly w/ central canal stenosis and milly L > R neural foraminal stenosis. ? ? For low ferritin in setting of RLS s/s: continue Ferrous sulfate 325mg qd w/ vit C, prn colace. Will recheck levels. Again check MMA and homocysteine levels to better assess for b-12 def. HST to better assess for sleep apnea- pending Continue PT and stretching exercises. Increase Gabapentin from 300mg qid to [id number] (pt asked for decrease in dosing frequency). For headache and migraine prevention: Continue Riboflavin and Magnesium. Sumatriptan prn acute migraine attack. Monitor weakness, esophageal dysmotility, SOB. Future consideration: trial of Mestinon after completion of upcoming swallow eval.. ? f/u up in review of above and in-clinic in 6 months or sooner prn. Orders: Orders Vitamin B12 and Folate Today M62.838 - Other muscle spasm, R20.2 - Paresthesia of skin, R79.0 - Abnormal level of blood mineral Ferritin Today M62.838 - Other muscle spasm, R20.2 - Paresthesia of skin, R79.0 - Abnormal level of blood mineral IRON PROFILE Today M62.838 - Other muscle spasm, R20.2 - Paresthesia of skin, R79.0 - Abnormal level of blood mineral Medications: Changed From gabapentin 300 mg PO QID 30 days 120 caps 5RF To gabapentin 600mg qam, 300mg q afternoon, 600mg qhs orally .; 30 days 150 caps 5RF Coding Level of Care Code Est Pt Level 4 (06865) Diagnoses Muscle spasm M62.838 Paresthesia R20.2 Low ferritin level R79.0 Migraine G43.909 Lumbar nerve root impingement M54.16
[2024-01-29 14:37] VITALS: BP 112/74; PULSE 93; O2SAT 98; BMI 34.5
== END 2024-01-29 15:33 | disposition home or self-care (01) ==
PROVIDERS: PCP Nurse Practitioner Family; Visit Provider Nurse Practitioner Family
DX: M62.838 Other muscle spasm (principal); R20.2 Paresthesia of skin; R79.0 Abnormal level of blood mineral; G43.909 Migraine, unspecified, not intractable, without status migrainosus; M54.16 Radiculopathy, lumbar region
CPT/HCPCS: 99214

== ENCOUNTER → 2024-01-29 14:30 | Outpatient (BNVA) | payer OTHER, SELFPAY | PROVIDERS: PCP Nurse Practitioner Family; Visit Provider Nurse Practitioner Family | DX: M62.838 Other muscle spasm (principal); R20.2 Paresthesia of skin; R79.0 Abnormal level of blood mineral; G43.909 Migraine, unspecified, not intractable, without status migrainosus; M54.16 Radiculopathy, lumbar region; Z79.899 Other long term (current) drug therapy | CPT/HCPCS: 99212 ==

== ENCOUNTER 2024-06-28 10:52 | Outpatient (AMB) | payer OTHER, SELFPAY ==
[2024-06-28 10:47] VITALS: BP 118/76; PULSE 76; O2SAT 98; BMI 35.1
--- NOTE | 2024-06-28 10:47 | MHC.PC.OV ---
Vital Signs 06/28/24 10:47 Height 5 ft 5 in Weight 211 lb BMI 35.1 BP 118/76 Blood Pressure Location Rt brachial Position Sitting Pulse 76 Pulse Source Pulse Oximeter Pulse Oximetry (%) 98 Intake Visit Reasons: 4 month follow up- repeat A1C (elevated 10.3) Intake Note: pt is here for follow up a1c done in office today Allergies diphenhydramine [Benadryl] Allergy (Unknown, Verified 06/28/24 10:47) swelling, hives Benadryl Allergy (Unknown, Uncoded 01/26/24 12:45) hives Pumpkin Allergy (Unknown, Uncoded 01/26/24 12:45) unknown Seafood Allergy (Unknown, Uncoded 01/26/24 12:45) unknown Medication List - Last Reconciled 06/28/24 by Isaac Boykin [facility]- albuterol sulfate 90 mcg/actuation (ProAir HFA) 2 puffs inhalation Q4-6H PRN alcohol swabs (Alcohol Pads) 1 pad topical BID 90 days alprazolam 1 mg PO BID 30 days ascorbate calcium (vitamin C) 500 mg PO DAILY 30 days atorvastatin 10 mg PO BEDTIME 90 days betamethasone dipropionate 0.05% 1 appl topical DAILY PRN blood sugar diagnostic (FreeStyle Lite Strips) As directed to test blood sugars TID a day blood-glucose meter (Go-Page Digital MediaStyle System Kit) Use to check blood sugar TID celecoxib 200 mg PO BID PRN cetirizine 10 mg PO DAILY 30 days docusate sodium (Colace) 100 mg PO BID PRN 30 days duloxetine 60 mg PO DAILY epinephrine (EpiPen 2-Merrill) 0.3 mg (0.3 mL) IM ONCE PRN fenofibrate 54 mg PO DAILY ferrous sulfate 325 mg PO DAILY 30 days flash glucose scanning reader ([employer]-Page Digital MediaStyle Jacob 2 [place]) tid testing flash glucose sensor (FreeStyle Jacob 2 Sensor kit) tid testing fluconazole 150 mg PO Q3D 2 doses gabapentin 600mg qam, 300mg q afternoon, 600mg qhs orally .; 30 days hydroxyzine pamoate 50 mg PO BID insulin degludec (Tresiba FlexTouch U-100 insulin) 20 units (0.2 mL) subcut DAILY 30 days lancets ([employer]-Page Digital MediaStyle Lancets) Use to check blood sugar TID or as needed for signs/symptoms of hypo/hyperglycemia lisinopril 2.5 mg PO DAILY magnesium oxide 400 mg PO BEDTIME 30 days metformin 1,000 mg PO BID pen needle, diabetic Use to inject insulin once a day propranolol 40 mg PO BID riboflavin (vitamin B2) 400 mg PO DAILY 30 days semaglutide 1 mg (0.75 mL) subcut QWEEK Shower Chair daily sumatriptan succinate 50 - 100 mg orally at onset of headache, may repeat in 2 hrs PRN; max 2 tabs per day or 4 tabs/week 30 days tizanidine 4 mg PO BEDTIME PRN 15 days walker daily [walker with seat and wheels daily] Tobacco use date assessed: 12/16/23 Dental Screening Dental Screen Date: 12/16/23 HPI 4 month follow up- repeat A1C (elevated 10.3) HPI Details History of Present Illness The patient is a 44-year-old female presenting with concerns about her diabetes management and suspected Sjogren's syndrome. The patient has been managing Type 2 Diabetes Mellitus with insulin, specifically Treseba, and Ozempic. She reports difficulties with frequent blood glucose monitoring due to skin sensitivity on her fingers and has been experiencing high blood sugar levels. Her recent A1c result is 11.6%, indicating poor glycemic control. For management, she has been on Treseba nightly and previously on 2 mg of Ozempic but has requested a reduction due to adverse effects, particularly nausea. The patient is inquiring about Sjogren's syndrome after learning about its symptoms, such as dry skin, mouth, eyes, and swelling issues, similar to what she experiences. Concerns about other symptoms include a persistent dry cough and tightness in her lungs, which have been troubling her for the past couple of months. Social History - Reports difficulty in managing dietary restrictions associated with diabetes. - Mentions preference for carbohydrate-rich foods. - Provides no additional significant social or lifestyle history. Review of Systems - Respiratory: Reports persistent dry cough, feeling of tightness in the lungs. - Dermatological: Reports dry skin, particularly noticing with finger prick glucose checks. - Ophthalmological: Reports dry eyes, last eye exam was two years ago. - Oral: Reports dry mouth and lips. denies neuropathy Physical Exam -no lymphadenopathy noted neck - fairly clear lungs bilat - s1s2 -+sensation with use of monofilament to feet, feet are intact -A+Ox3 Results - Labs: Hemoglobin A1c result is 11.6%. Plan - Type 2 Diabetes Mellitus: Increase Treseba dosage to 20 units nightly from 12 units. Decrease Ozempic to 1 mg weekly due to side effects. will work on getting ehr a sensor to easily track sugars - Suspected Sjogren's Syndrome: Plan for blood testing to assess for Sjogren's. - Respiratory Viral Infection: No specific antiviral treatment available, management to focus on symptom relief and monitoring. Patient was informed and verbally consented to the use of an ambient scribe for clinic note documentation during this visit. Discussion Notes I discussed with the patient the necessity of closer monitoring and controlling her blood glucose levels. We agreed to increase the dosage of Treseba to 20 units nightly to help achieve better glycemic control. Due to intolerance to a higher dose of Ozempic, we will reduce it to 1 mg. We also discussed further evaluating the suspected Sjogren's syndrome with appropriate blood testing, given her symptoms of dryness in the eyes, mouth, and skin. Regarding her respiratory symptoms, I instructed her that these appear viral in nature, and treatment would primarily involve symptomatic care. I advised regular follow-up visits to assess treatment efficacy and symptom management. Pt understands the s/s of hypoglycemia and how to correct it. Patient Instructions - Increase Treseba to 20 units nightly. - Decrease Ozempic to 1 mg weekly. - Schedule blood testing to evaluate for Sjogren's syndrome. - Monitor blood glucose levels more frequently despite associated discomfort. - Follow a balanced diet with reduced carbohydrate intake. - Seek immediate care if respiratory symptoms worsen or new symptoms arise. - Schedule an eye exam as soon as possible. [facility] Medical History Arthritis Hypermobility arthralgia Surgical History No pertinent past surgical history Family History Other Mental health disorder Substance use disorder Social History Housing: House Alcohol intake: current Alcohol intake frequency: holidays/special occasions only Patient Tobacco Use Status: Former Tobacco user Tobacco use type: Cigarette e-Cigarette/Vaping Use: Never Used Second Hand Smoke Exposure: Yes Substance Use Type: Marijuana service: No Current occupational status: unemployed Cognitive needs: No Hearing needs: No Vision needs: Yes (contacts) Questionnaire Thrive Questionnaire Date Thrive assessed: 10/07/22 RADHA-7 AMB Questionnaire RADHA-7 Date RADHA - 7 assessed: 10/07/22 Source: Developed by Drs. Matthew Walton, Jazzmine Florian, Eloy Jaramillo and colleagues, with an educational bryce from [employer]. Physical exam (Primary Care) Vital Signs: Last Vital Signs Pulse 76 06/28/24 10:47 BP 118/76 06/28/24 10:47 Pulse Ox 98 06/28/24 10:47 BMI result Body Mass Index 35.1 Tobacco/Smoking Status: Tobacco use Status Tobacco use date assessed 12/16/23 06/28/24 10:49 Patient Tobacco Use Status Former Tobacco user 06/28/24 10:49 Tobacco use type Cigarette 06/28/24 10:49 e-Cigarette/Vaping Use Never Used 06/28/24 10:49 Thrive Assessment: Date of Thrive Assessment Date Thrive assessed 10/07/22 06/28/24 10:49 Results AMB Hemoglobin A1c AMB Hemoglobin A1c 11.6 % Last Edit by Lionel Marcano CMA on 06/28/24 11:04 Results Reviewed Results Reviewed: Laboratory Last Values Hgb A1c (Clinic) 11.6 % (4.0-6.0) H 06/28/24 11:03 Coding Level of Care Code Est Pt Level 3 (93800) Diagnoses Dry eyes H04.123 Uncontrolled diabetes mellitus with hyperglycemia E11.65 Assessment & Plan Assessment & Plan (1) Dry eyes: Code(s): H04.123 - Dry eye syndrome of bilateral lacrimal glands Category: Medical (2) Uncontrolled diabetes mellitus with hyperglycemia: Code(s): E11.65 - Type 2 diabetes mellitus with hyperglycemia Category: Medical Plan: sensor will be sent, refuses vaccinations, increasing tresiba Plan . Orders: Orders Sjogren's Antibodies Today H04.123 - Dry eye syndrome of bilateral lacrimal glands AMB Hemoglobin A1c Today Z13.9 - Encounter for screening, unspecified Medications: New fluconazole do not take hydroxyzine or alprazolam concurrently with this med 150 mg PO Q3D 2 tabs 1RF 2 doses Changed From insulin degludec (Tresiba FlexTouch U-100 insulin) 12 units (0.12 mL) subcut DAILY 30 days 3.6 mL 3RF To insulin degludec (Tresiba FlexTouch U-100 insulin) 20 units (0.2 mL) subcut DAILY 6 mL 3RF 30 days From semaglutide 2 mg (0.75 mL) subcut QWEEK 3 mL 1RF To semaglutide 1 mg (0.75 mL) subcut QWEEK 3 mL 1RF
== END 2024-06-28 11:12 | disposition home or self-care (01) ==
LOC: HO.HMCC 10:52
PROVIDERS: PCP Nurse Practitioner Family; Visit Provider Nurse Practitioner Family
DX: H04.123 Dry eye syndrome of bilateral lacrimal glands (principal); E11.65 Type 2 diabetes mellitus with hyperglycemia; Z13.9 Encounter for screening, unspecified

== ENCOUNTER → 2024-06-28 10:52 | Outpatient (BNVA) | payer OTHER, SELFPAY | PROVIDERS: PCP Nurse Practitioner Family; Visit Provider Nurse Practitioner Family | DX: H04.123 Dry eye syndrome of bilateral lacrimal glands (principal); E11.65 Type 2 diabetes mellitus with hyperglycemia | CPT/HCPCS: 83036; 99212 ==

== ENCOUNTER 2024-08-25 13:28 | Outpatient (AMB) | payer OTHER, SELFPAY ==
[2024-08-25 13:35] VITALS: BP 116/80; PULSE 87; O2SAT 97; BMI 35.3
--- NOTE | 2024-08-25 13:35 | A.OFFVIS_ITS ---
Vital Signs 08/25/24 13:35 Height 5 ft 5 in Weight 212 lb 6 oz BMI 35.3 BP 116/80 Blood Pressure Location Rt brachial Position Sitting Pulse 87 Pulse Source Pulse Oximeter Pulse Oximetry (%) 97 Oxygen Delivery Method Room Air Intake Visit Reasons: 6 month F/U Intake Note: Patient presents for follow up paresthesia/migraine Allergies diphenhydramine [Benadryl] Allergy (Unknown, Verified 08/25/24 13:38) swelling, hives Benadryl Allergy (Unknown, Uncoded 01/26/24 12:45) hives Pumpkin Allergy (Unknown, Uncoded 01/26/24 12:45) unknown Seafood Allergy (Unknown, Uncoded 01/26/24 12:45) unknown Medication List - Last Reconciled 08/25/24 by HEATH Major albuterol sulfate 90 mcg/actuation (ProAir HFA) 2 puffs inhalation Q4-6H PRN alcohol swabs (Alcohol Pads) 1 pad topical BID 90 days alprazolam 1 mg PO BID 30 days ascorbate calcium (vitamin C) 500 mg PO DAILY 90 days atorvastatin 10 mg PO BEDTIME 90 days betamethasone dipropionate 0.05% 1 appl topical DAILY PRN blood sugar diagnostic (FreeStyle Lite Strips) As directed to test blood sugars TID a day blood-glucose meter (FreeStyle System Kit) Use to check blood sugar TID celecoxib 200 mg PO BID PRN cetirizine 10 mg PO DAILY 30 days codeine-guaifenesin 10-200 mg/5 mL 5 mL PO Q6H PRN 6 days Dexcom G7 Buckle Strap Puncher (blood-glucose meter,continuous) to test blood sugar 4 times per day NS Dexcom G7 Sensor (blood-glucose sensor) Test blood sugar 4 times per day, change sensor every 10 days NS docusate sodium (Colace) 100 mg PO BID PRN 30 days duloxetine 60 mg PO DAILY epinephrine (EpiPen 2-Merrill) 0.3 mg (0.3 mL) IM ONCE PRN fenofibrate 54 mg PO DAILY ferrous sulfate 325 mg PO DAILY 30 days fluconazole 150 mg PO Q3D 2 doses gabapentin 600mg qam, 300mg q afternoon, 600mg qhs orally .; 30 days hydroxyzine pamoate 50 mg PO BID insulin degludec (Tresiba FlexTouch U-100 insulin) 20 units (0.2 mL) subcut DAILY 30 days lancets (FreeStyle Lancets) Use to check blood sugar TID or as needed for signs/symptoms of hypo/hyperglycemia lisinopril 2.5 mg PO DAILY magnesium oxide 400 mg PO BEDTIME 30 days metformin 1,000 mg PO BID pen needle, diabetic Use to inject insulin once a day propranolol 40 mg PO BID riboflavin (vitamin B2) 400 mg PO DAILY 30 days semaglutide 1 mg (0.75 mL) subcut QWEEK Shower Chair daily sumatriptan succinate 50 - 100 mg orally at onset of headache, may repeat in 2 hrs PRN; max 2 tabs per day or 4 tabs/week 30 days tizanidine 4 mg PO BEDTIME PRN 15 days walker daily [walker with seat and wheels daily] HPI Comments Details: 43-yr-old female presents for f/u visit for paresthesia, migraine, sleep difficulties. Pt denies any significant interval medical changes. Pt is still having difficulty sleeping. She is having more BUE L > R tingling, numbness, weakness, and dropping things. The left hand may become stuck and postured. She is also having pain moving from the left hamstring region through the foot. The leg will sometimes become stiff and posture. This occurs w/ both rest and activity. She did do PT- which helped headaches and right shoulder pain, but still has neck pain. She has been noticing more difficulty swallowing. Tries to manage by eating softer foods, but this can occur with her salvia as well. Sometimes this is a/w feeling like she cannot breathe. She has a history of nocturnal acid reflux. Previous MBS showed esophageal dysmotility. Usually drinks water, rarely takes a shannon-george. Usually avoids heavy meals at bedtime. She does not notice double vision, weakness during the episode. She continues to have snoring, gasping arousals, daytime tiredness. She has not had follow-up home sleep study yet. Sleeps on with several pillows, and moves side to side. She may have weird pains the left side of her head that last 3-4 hours- come and go. This is different than her baseline migraine. Has been having a lot of neck pain recently. She also has Left sided head to toe numbness and tingling. And LUE sharp shooting and dual throbbing pains. Migraine attacks continue to be better.. 09/11/23, BLE EMG/NCS: IMPRESSION: 1. This is an abnormal study. 2. There is electrodiagnostic evidence for left L5-S1 radiculopathy, acute on chronic features. 3. Cannot rule out between a right L5-S1 radiculopathy versus a non localizable peroneal neuropathy. Higher suspicion for radiculopathy. 4. There is no electrodiagnostic evidence for tibial neuropathy. lumbosacral plexopathy, or peripheral neuropathy. 08/20/23BUE EMG/NCS IMPRESSION: 1. This is an abnormal study. 2. 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 3. There is no electrodiagnostic evidence for median neuropathy, brachial plexopathy, or cervical radiculopathy. No ulnar neuropathy on the right. [facility] Medical History Arthritis Hypermobility arthralgia Surgical History No pertinent past surgical history Family History Other Mental health disorder Substance use disorder Social History Housing: House Alcohol intake: current Alcohol intake frequency: holidays/special occasions only Patient Tobacco Use Status: Former Tobacco user Tobacco use type: Cigarette e-Cigarette/Vaping Use: Never Used Second Hand Smoke Exposure: Yes Substance Use Type: Marijuana service: No Current occupational status: unemployed Cognitive needs: No Hearing needs: No Vision needs: Yes (contacts) Physical Exam Vital Signs: Last Vital Signs Pulse 87 08/25/24 13:35 BP 116/80 08/25/24 13:35 Pulse Ox 97 08/25/24 13:35 Oxygen Delivery Method Room Air 08/25/24 13:35 BMI result Body Mass Index 35.3 Const General: cooperative and no acute distress Orientation/consciousness: patient oriented x3 Resp Effort & Inspection: normal respiratory effort and able to speak in complete sentences Neuro Other: Pupil asymmetry- Left pupil larger, minimally responsive to light- 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 Limited cervical range of motion DTRs dulled throughout RUQ muscle strength 5/5, LUE muscle strength 5-/5. Decreased LUE light touch sensation Mild antalgic gait General: patient oriented x3 Cognition (Neuro): normal cognition Psych Appearance: grossly normal Mental Status: mental status grossly normal Speech and movement: Normal speech and movement present Affect: normal affect Attitude: cooperative Assessment & Plan Assessment & Plan (1) Muscle spasm: Code(s): M62.838 - Other muscle spasm Category: Medical (2) Paresthesia: Code(s): R20.2 - Paresthesia of skin Category: Medical (3) Low ferritin level: Code(s): R79.0 - Abnormal level of blood mineral Category: Medical (4) Migraine: Code(s): G43.909 - Migraine, unspecified, not intractable, without status migrainosus Category: Medical (5) Lumbar nerve root impingement: Code(s): M54.16 - Radiculopathy, lumbar region Category: Medical (6) Snoring: Code(s): R06.83 - Snoring Category: Medical (7) Excessive daytime sleepiness: Code(s): G47.19 - Other hypersomnia Category: Medical (8) Sleep difficulties: Code(s): G47.9 - Sleep disorder, unspecified Category: Medical Plan Previous workup: labs- notable for ferritin 22. B-12 low normal 243 w/ folate 7. CRP 5.7 H, Recent HgA1c further elevated > 12%. ACHR-Ap nd anti-Musk normal. In-lab PSG: inconclusive- due to poor sleep presence BUE EMG/NCS: left ulnar neuropathy at the elbow. C-spine x-ray w/ flex/ext: Interval increase in anterior C3-C6 sharp syndesmophytes. BLE EMG/NCS: left L5-S1 radiculopathy, acute on chronic features, and probabale right L5-S1 radiculopathy versus a non localizable peroneal neuropathy. Discussed that at this time, will need to manage conservatively as diabetes is sub-optimally controlled. MBS- esophageal dysmotility L-spine MRI- L5-S1 large paracentral disc protrusion measuring 1 cm anleroposteriorly w/ central canal stenosis and milly L > R neural foraminal stenosis. ? For worsening neck and LUE paresthesia, weakness, and worsening dysphagia, in setting of multilevel cervical sharp syndesmophytes: Patient advised to undergo C-spine MRI with and without contrast. For low ferritin in setting of RLS s/s: Continue Ferrous sulfate 325mg qd w/ vit C, prn colace. Will recheck levels. Continue vitamin B12 supplement We will recheck iron studies in B12 level- may do with her next labs. Patient again advised to undergo HST to better assess for sleep apnea. Patient may try an OTC calcium alginate tx to help with nocturnal GERD symptoms Continue PT and stretching exercises. Continue Gabapentin [id number] (pt asked for decrease in dosing frequency). Future consideration: trial of Mestinon for dysphagia/weakness/SOB For headache and migraine prevention: Continue Riboflavin and Magnesium. Sumatriptan prn acute migraine attack. ? f/u up in review of above and in-clinic in 6 months or sooner prn. Orders: Orders MR cervical spine wo/w con Today G81.90 - Hemiplegia, unspecified affecting unspecified side, M24.28 - Disorder of ligament, vertebrae, M54.2 - Cervicalgia, R13.10 - Dysphagia, unspecified, R20.2 - Paresthesia of skin Complete Blood Count Auto Diff Today R20.2 - Paresthesia of skin, R79.0 - Abnormal level of blood mineral, R79.89 - Other specified abnormal findings of blood chemistry Ferritin Today R20.2 - Paresthesia of skin, R79.0 - Abnormal level of blood mineral, R79.89 - Other specified abnormal findings of blood chemistry Comprehensive Met. Panel Today R20.2 - Paresthesia of skin, R79.0 - Abnormal level of blood mineral, R79.89 - Other specified abnormal findings of blood chemistry Vitamin B12 and Folate Today R20.2 - Paresthesia of skin, R79.0 - Abnormal level of blood mineral, R79.89 - Other specified abnormal findings of blood chemistry IRON PROFILE Today R20.2 - Paresthesia of skin, R79.0 - Abnormal level of blood mineral, R79.89 - Other specified abnormal findings of blood chemistry RT home sleep study Today G47.19 - Other hypersomnia, G47.9 - Sleep disorder, unspecified, R06.02 - Shortness of breath, R06.83 - Snoring Medications: New cyanocobalamin (vitamin B-12) 500 mcg PO DAILY 30 days 30 tabs 6RF Refilled sumatriptan succinate (0.5 - 1 x 100 mg) 50 - 100 mg orally at onset of headache, may repeat in 2 hrs PRN; max 2 tabs per day or 4 tabs/week 30 days 12 tabs 6RF migraine headache ferrous sulfate 325 mg PO DAILY 30 days 30 tabs 3RF riboflavin (vitamin B2) 400 mg PO DAILY 30 days 30 tabs 11RF magnesium oxide may hold for loose stools 400 mg PO BEDTIME 30 days 30 tabs 11RF gabapentin 600mg qam, 300mg q afternoon, 600mg qhs orally .; 30 days 150 caps 5RF ascorbate calcium (vitamin C) 500 mg PO DAILY 90 days 90 tabs 1RF Coding Level of Care Code Est Pt Level 4 (48824) Diagnoses Muscle spasm M62.838 Paresthesia R20.2 Low ferritin level R79.0 Migraine G43.909 Lumbar nerve root impingement M54.16 Snoring R06.83 Excessive daytime sleepiness G47.19 Sleep difficulties G47.9
--- OUTSIDE RECORDS SUMMARY | 2024-08-25 17:22 | XMS_ITS | Clinical Summary ---
Author Organization [facility] ity Address [address] [place] [address] Care Team Providers Care Promotions Specialist Name Role Phone Isaac Boykin NP Primary Care Provider Medical History Medical History Date Comments Arthritis DX:Arthritis Hypermobility arthralgia DX:Hype rmobility arthralgia Anxiety DX:Anxiety Covid-19 DX:COVID-19 Class 1 obesity DX:Class 1 obesi ty Family History Medical History Relation Name Comments Diabetes Father Heart attack Father Hyperlipidemia Father Hypertension Father Colon cancer Maternal Grandmother Diabetes Mother Heart attack Mother Hyperlipidemia Mother Hypertension Mother Relation Name Status Comments Father Maternal Grandmother Mother Social History Tobacco Use Types Packs/Day Years Used Date Smoking Tobacco: Former Cigarettes Q uit: 01/24/2006 Smokeless Tobacco: Never Alcohol Use Standard Drinks/Week Comments Not Currently 0 (1 standard drink = 0.6 oz pur e alcohol) Sex and Gender Information Value Date Recorded Sex Assigned at Not on file Gender Identity Not on file Sexual Orientation Not on file Obstetrics History Last Filed Vital Signs Vital Sign Reading Time Taken Comments Blood Pressure 108/68 05/06/2024 2:15 PM EDT Sit ting L Arm Pulse 96 05/06/2024 2:15 PM EDT Temperature - - Respiratory Rate - - Oxygen Saturation - - Inhaled Oxygen Concentration - - Weight 94.8 kg (209 lb) 05/06/2024 2:15 PM EDT Height 165.1 cm (5' 5 ) 05/06/2024 2:15 PM EDT Body Mass Index 34.78 05/06/2024 2:15 PM EDT Plan of Treatment Health Maintenance Due Date Last Done Comments Breast Cancer Screening 1980 Pneumococcal Vaccine: Pediat rics (0 to 5 Years) and At-Risk Patients (6 to 64 Years) (1 of 2 - PCV) 1986 DTaP,Tdap,and Td Vaccines (1 - Tdap) 1999 Hepatitis B Vaccines (1 of 3 - 19+ 3-dose series) 1999 Cervical Cancer Screening: P ap Smear 2001 Colorectal Cancer Screening: Colonoscopy 06/25/2022 Depression Screening 06/25/2022 HIV Screening 06/25/2022 Hepatitis C Screening 06/25/2022 Social Influencers of Health Screening 06/25/2022 COVID-19 Vaccine ( - 2023-2 5 season) 2024 Influenza Vaccine (#1) 2024 HIB Vaccines Aged Out No longer eligi ble based on patient's age to complete this topic HPV Vaccines Aged Out No longer eligi ble based on patient's age to complete this topic Hepatitis A Vaccines Aged Out No long er eligible based on patient's age to complete this topic IPV Vaccines Aged Out No longer eligi ble based on patient's age to complete this topic MMR Vaccines Aged Out No longer eligi ble based on patient's age to complete this topic Meningococcal ACWY Vaccine Aged Out N o longer eligible based on patient's age to complete this topic RSV Immunization Patients Un isael 20 months Aged Out No longer eligible b ased on patient's age to complete this topic Varicella Vaccines Aged Out No longer eligible based on patient's age to complete this topic Care Teams Promotions Specialist Relationship Specialty Start Date End Date Isaac Boykin NP [address] [facility] [place] PCP - General 11/12/22
== END 2024-08-25 14:35 | disposition home or self-care (01) ==
PROVIDERS: PCP Nurse Practitioner Family; Visit Provider Nurse Practitioner Family
DX: M62.838 Other muscle spasm (principal); R20.2 Paresthesia of skin; R79.0 Abnormal level of blood mineral; G43.909 Migraine, unspecified, not intractable, without status migrainosus; M54.16 Radiculopathy, lumbar region; R06.83 Snoring; G47.19 Other hypersomnia; G47.9 Sleep disorder, unspecified
CPT/HCPCS: 99214

== ENCOUNTER → 2024-08-25 13:28 | Outpatient (BNVA) | payer OTHER, SELFPAY | PROVIDERS: PCP Nurse Practitioner Family; Visit Provider Nurse Practitioner Family | DX: G43.909 Migraine, unspecified, not intractable, without status migrainosus (principal); G47.19 Other hypersomnia; R20.2 Paresthesia of skin; M62.838 Other muscle spasm; R79.0 Abnormal level of blood mineral; R06.83 Snoring; M54.16 Radiculopathy, lumbar region; M24.28 Disorder of ligament, vertebrae; M54.2 Cervicalgia; R79.89 Other specified abnormal findings of blood chemistry | CPT/HCPCS: 99212 ==

== ENCOUNTER 2024-10-23 12:47 | Outpatient (REF) | payer OTHER, SELFPAY ==
--- NOTE | ~2024-10-23 | MR_ITS ---
EXAMINATION: MRI SOFT TISSUE NECK WITHOUT AND WITH CONTRAST CLINICAL INFORMATION: Difficulty swallowing. COMPARISON: None available. TECHNIQUE: MRI of the soft tissue neck was obtained using routine sequences without and with contrast. Intravenous contrast: Gadavist 9.5 mL. No reported immediate complications. FINDINGS: Bilateral prominent with fatty hilum cervical lymph nodes, the largest in the left to be compartment measures 1.5 cm. Skull base, nasopharynx, retropharynx, oropharynx, hypopharynx and larynx demonstrated no gross masses. Cistern Room Operator spaces, parapharyngeal compartments and carotid compartments demonstrated no masses or fluid collections. Salivary glands demonstrated normal enhancement pattern without gross masses. The thyroid gland is normal without dominant nodules. The flow-void signal within the main vessels is normal. The oral cavity sublingual and submandibular compartments demonstrated no gross masses or fluid collections. No masses within the intraconal or the extraconal compartments of the orbits. The lacrimal glands are mildly prominent. The eyeballs are intact without enhancing lesion. Multilevel cervical spondylosis C3 C6 resulting in a reverse curvature apex at C4-5. MR/MR orbits face neck wo/w con IMPRESSION: No mass. Nonspecific bilateral prominent cervical lymph nodes. Multilevel cervical spondylosis C3 C6. Electronically signed by: Myles Trujillo MD 10/25/2024 01:15 PM EDT
[2024-10-23] MEDS: gadobutroL 10 ML VIAL IVPUSH (13:47)
== END 2024-10-23 12:48 | disposition home or self-care (01) ==
LOC: HO.MRI 12:47
PROVIDERS: Visit Provider Nurse Practitioner Family
DX: R13.10 Dysphagia, unspecified (principal); K22.4 Dyskinesia of esophagus; M24.28 Disorder of ligament, vertebrae
CPT/HCPCS: 70543; A9585

== ENCOUNTER → 2024-10-23 12:58 | Outpatient (BNV) | payer OTHER, SELFPAY | PROVIDERS: Visit Provider Radiology Diagnostic Radiology | DX: R13.10 Dysphagia, unspecified (principal) | CPT/HCPCS: 70543 ==

== ENCOUNTER 2024-11-28 14:37 | Outpatient (REF) | payer OTHER, SELFPAY ==
--- NOTE | ~2024-11-28 | US_ITS ---
EXAMINATION: US SOFT TISSUE HEAD AND NECK LIMITED. CLINICAL INFORMATION: Difficulty swallowing.. COMPARISON: None available. TECHNIQUE: Linear transducer alfaro-scale and color Doppler examination with attention to the neck. FINDINGS: There are a few, scattered, mildly prominent lymph nodes with a fatty hilum, the largest measures 2.2 cm level 3, left neck. US/US soft tiss head and/or neck IMPRESSION: Nonspecific prominent normal-appearing lymph nodes.. Electronically signed by: Myles Trujillo MD 11/28/2024 03:19 PM EDT
== END 2024-11-28 14:38 | disposition home or self-care (01) ==
LOC: HO.HMGCX 14:37
PROVIDERS: PCP Nurse Practitioner Family; Visit Provider Nurse Practitioner Family
DX: R59.0 Localized enlarged lymph nodes (principal)
CPT/HCPCS: 76536

== ENCOUNTER → 2024-11-28 14:39 | Outpatient (BNV) | payer OTHER, SELFPAY | PROVIDERS: PCP Nurse Practitioner Family; Visit Provider Radiology Diagnostic Radiology | DX: R13.10 Dysphagia, unspecified (principal); R59.0 Localized enlarged lymph nodes | CPT/HCPCS: 76536 ==

== ENCOUNTER 2024-12-05 14:04 | Outpatient (RCR) | payer OTHER, SELFPAY ==
[2024-12-05 14:15] VITALS: BP 122/60; PULSE 97; O2SAT 89
--- NOTE | 2024-12-07 09:26 | MHC.PT.EP ---
[facility] [place] [facility] [place] [facility] [place] [facility] [address] Clarissa Loza [address] [phone] F: [phone] F: [phone] F: [phone] F: [phone] Physical Therapy Plan of Care Date of Evaluation: 12/05/24 Date of Surgery: Diagnosis: PT eval and treat, G43.909 Migraine, unspecified not intractable, without status migrainous, M54.2 Cervicalgia, Migraine [facility] [place], [facility] 11/08/2024 Assessment: Pt is a RHD, 44 y/o female, referred to PT with PMH significant for DMII, hypermobility arthralgias for treatment PT eval and treat, G43.909 Migraine, unspecified not intractable, without status migraines, M54.2 Cervicalgia, Migraine [facility] Ak[place]ah [place], [facility] 11/08/2024 Pt reports history of neck pain/shoulder pain for many years, past PT about a year ago with positive gain. Pt expressing on average headaches 5x/week, parathesias radiating down both UE, history of nerve conduction testing completed (see notes) hx brain MRI (see notes). Pt states she was formerly working as a [employer], has not worked in several years due to history of her pain. Admits to active therapist 1x/week and psychiatrist. Pt will benefit from attending skilled PT services at a frequency of 2x/week x 4 weeks to address impairments, implement HEP/self care management and restore mobility to resume PLOF. Of note, pt presents to the office reporting her blood sugar over 355 off the charts on her DEXCOM. Pt shows therapist her trending high monitor for the past few days. 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 Pt educated in the importance of medical management of her blood sugar for overall health. Patient will benefit from attending skilled PT services at a frequency of 2x/week x 4 weeks to address impairments, implement HEP/self care and reduce pain for ADLS/IADLS. Pt asymptomatic at this time in regard to high blood sugar. Pt verbalized understanding/goals of therapy/findings of evaluation/plan. Pt may reports many areas of joint pain, history of hypermobility, weakness in swallowing, history of palpitations, history of GI sx. Due to history of impact of broad clustering of multi symptoms, pt may benefit from work-up/and or screening to rule out hypermobility disorder such as Ana Luisa Danlos syndrome. Frequency and Duration: The patient will be seen 2x week x 4 weeks Short Term Goals: 1. Initiate self care HEP program. 2. Reduce headache frequency by 25%. 3. Improve SPADI score. 4. Improve L cervical rotation to 60 degrees. 5. Improve postural awareness. Acls Specialist Goals: 1. I HEP with self care management. 2. Strength lower trap 5/5. (IR: 3/5). 3. Strength middle trap 5/5, IR: 3/5. 4. Reduce crepitus in cervical spine with AROM for ADLS/IADLs. Treatment Plan: Modalities to reduce pain, spasms and effusion. Manual therapy to restore motion and function. Therapeutic exercise to improve strength and flexibility. Neuromuscular re-education for posture and balance. Therapeutic activities to return to functional activities of daily living. Electronically signed by: Tammy Mueller, PT, DPT Please sign and return to therapist. Thank you for your referral.
== END 2025-02-14 07:16 | disposition home or self-care (01) ==
LOC: HO.PTS 14:04
PROVIDERS: Visit Provider Nurse Practitioner Family
DX: G43.909 Migraine, unspecified, not intractable, without status migrainosus (principal); M54.2 Cervicalgia
CPT/HCPCS: 97110; 97162

== ENCOUNTER 2024-12-14 10:03 | Outpatient (AMB) | payer OTHER, SELFPAY ==
[2024-12-14 10:16] VITALS: BP 120/70; PULSE 90; O2SAT 97; BMI 35.6
--- NOTE | 2024-12-14 10:16 | A.OFFPC_ITS ---
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 Required: No Accompanied by: Spouse Allergies diphenhydramine [Benadryl] Allergy (Unknown, Verified 12/14/24 10:17) swelling, hives Benadryl Allergy (Unknown, Uncoded 01/26/24 12:45) hives Pumpkin Allergy (Unknown, Uncoded 01/26/24 12:45) unknown Seafood Allergy (Unknown, Uncoded 01/26/24 12:45) unknown Tobacco use date assessed: 12/14/24 Dental Screening Dental Screen Date: 12/14/24 Did you have a dental visit in the last 12 months?: Yes Did you have a dental problem in the last 6 months where you did not have access to dental care?: No Was dental information given to patient?: Patient has dentist HPI ED follow up - adriana (records requested) HPI Details Chief Complaint Left hip pain and shoulder tenderness post-fall History of Present Illness The patient is a 44-year-old female presenting with complaints of left hip and shoulder pain following a fall down the stairs on 11/28/2024. The fall resulted in notable swelling on the left hip and tenderness in the left shoulder region. She underwent imaging at the time of injury, with x-rays showing no fractures but indicating soft tissue swelling in the hip. Since the incident, her shoulder tenderness has improved significantly, although some tenderness persists. The left hip pain, while reduced, is still present and there is ongoing tenderness especially when palpated or during movement. The initial significant swelling has begun to resolve, showing some fading of ecchymosis around the left hip area. Social History Health Maintenance Review of Systems - Musculoskeletal: Reports tenderness of the left shoulder, swelling, and tenderness of the left hip. Denies any significant clicking or popping of the left upper extremity. -denies any dizziness, cp, sob, fevers, chills Physical Exam General: Cooperative, healthy appearing, comfortable, no acute distress and well developed Orientation: Patient oriented x3 Limitations: No limitations Head: Normal to inspection Ears: Hearing grossly normal bilaterally Nose: Normal external nose present Face and sinus: Normal facial exam Eyes: Appearance normal, both eyes and all related structures Neck: Normal visual inspection and Yes full ROM Respiratory: Normal respiratory effort and able to speak in complete sentences. Clear to auscultation bilaterally Cardiovascular: Regular rate and rhythm. Normal S1 and S2 GI: Normal to inspection. Soft to palpation and nontender Skin: No rashes or lesions noted Neuro: Patient oriented x3 Extremities: Tenderness noted with range of motion in the left shoulder and left hip. Significant swelling to the left hip with ecchymosis. Full range of motion noted to left upper and lower extremities without clicking or popping. No crepitus noted. Results - X-ray of left shoulder: Negative for f racture - X-ray of left hip: Noted soft tissue s welling, negative for dislocation or fracture Plan Ongoing management includes range of motion exercises for the left shoulder. For the left hip pain, monitoring symptoms over the next two weeks will determine the necessity of an MRI if tenderness and pain persist. If no improvement is noted, further diagnostic imaging may be initiated. Discussion Notes I discussed with the patient the current status of her injuries, emphasizing the conservative management approach with continued shoulder exercises and monitoring of hip symptoms. The consideration of an MRI was discussed should symptoms not improve, and the potential findings of such an imaging study were explained. I advised the patient to reach out within two weeks or sooner if ther e is no improvement or any aggravation of symptoms, ensuring she understands the plan for monitoring and follow-up assessments. Patient Instructions - Continue performing range of motion ex ercises for your left shoulder daily. - Monitor your hip symptoms closely and contact me in two weeks with an update on your progress. If pain still bad, MRI will be ordered - Seek medical attention if you notice w orsening pain, new symptoms, or if you have any concerns before the planned follow-up time. [facility] Medical History Arthritis Hypermobility arthralgia Surgical History No pertinent past surgical history Family History Other Mental health disorder Substance use disorder Social History Housing: House Alcohol intake: current Alcohol intake frequency: holidays/special occasions only Patient Tobacco Use Status: Former Tobacco user Tobacco use type: Cigarette e-Cigarette/Vaping Use: Never Used Second Hand Smoke Exposure: Yes Substance Use Type: Marijuana service: No Current occupational status: unemployed Cognitive needs: No Hearing needs: No Vision needs: Yes (contacts) Questionnaire PHQ-9 Over the last 2 weeks, how often have you been bothered by any of the following problems? 1. Little interest or pleasure in doing things: several days 2. Feeling down, depressed, or hopeless: more than half the days 3. Trouble falling or staying asleep, or sleeping too much: nearly every day 4. Feeling tired or having little energy: nearly every day 5. Poor appetite or overeating: several days 6. Feeling bad about yourself - or that you are a failure or have let yourself or your family down: more than half the days 7. Trouble concentrating on things, such as reading the newspaper or watching television: more than half the days 8. Moving or speaking so slowly that other people could have noticed. Or the opposite - being so fidgety or restless that you have been moving around a lot more than usual: several days 9. Thoughts that you would be better off or of hurting yourself in some way: not at all Total score: 15 Depression Screening Interpretation: Positive (has a psychiatrist and therapist, denies any si or hi) Depression Screening Follow-up: Existing condition Depression Screening Done: Yes 27669 - PHQ-9 Billing: Yes Source: Developed by Drs. Matthew Walton, Jazzmine Florian, Eloy Jaramillo and colleagues, with an educational bryce from [employer]. Thrive Questionnaire Date Thrive assessed: 12/14/24 I am a: Patient AUDIT C Alcohol Use Questionnaire (AUDIT-C) 1. How often do you have a drink containing alcohol?: Monthly or less 2. How many drinks containing alcohol do you have on a typical day when you are drinking?: 1 or 2 3. How often do you have six or more drinks on one occasion?: Never Total Score: 1 Score Reviewed/Action Taken: Yes RADHA-7 AMB Questionnaire RADHA-7 Date RADHA - 7 assessed: 12/14/24 Feeling nervous, anxious, or on edge: 3 = Nearly every day Not being able to stop or control worryin = Nearly every day Worrying too much about different things: 3 = Nearly every day Trouble relaxin = More than half the days Being so restless that it is hard to sit still: 1 = Several days Becoming easily annoyed or irritable: 1 = Several days Feeling afraid as if something awful might happen: 2 = More than half the days Total RADHA-7 score (0-4 normal; 5-9 mild; 10-14 moderate; 15-21 severe): 15 Source: Developed by Drs. Matthew Walton, Jazzmine Flroian, Eloy Jaramillo and colleagues, with an educational bryce from [employer]. RADHA-7 Assessment Billing RADHA-7 Assessment Tool: RADHA-7 Assessment 18366 (denies any SI or HI, has a therapist and psychiatrist) Physical exam (Primary Care) Vital Signs: Last Vital Signs Pulse 90 12/14/24 10:16 BP 120/70 12/14/24 10:16 Pulse Ox 97 12/14/24 10:16 Oxygen Delivery Method Room Air 12/14/24 10:16 BMI result Body Mass Index 35.6 Tobacco/Smoking Status: Tobacco use Status Tobacco use date assessed 12/14/24 12/14/24 10:22 Patient Tobacco Use Status Former Tobacco user 12/14/24 10:22 Tobacco use type Cigarette 12/14/24 10:22 e-Cigarette/Vaping Use Never Used 12/14/24 10:22 PHQ-9: PHQ-9 Score PHQ-9: Total score 15 12/14/24 10:38 Depression Screening Interpretation: Positive (has a psychiatrist and therapist, denies any si or hi) Depression Screening Follow-up: Existing condition Thrive Assessment: Date of Thrive Assessment Date Thrive assessed 12/14/24 12/14/24 10:22 Coding Level of Care Code Est Pt Level 4 (31940) Diagnoses Fall W19.XXXA Left hip pain M25.552 Left shoulder pain M25.512 Additional Codes PHQ-9 - 76184 - PHQ-9 Billing: Yes ([id number]) RADHA-7 Assessment Billing - RADHA-7 Assessment Tool: RADHA-7 Assessment 89538 ([id number]) Assessment & Plan Assessment & Plan (1) Fall: Code(s): W19.XXXA - Unspecified fall, initial encounter Category: Medical (2) Left hip pain: Code(s): M25.552 - Pain in left hip Category: Medical (3) Left shoulder pain: Code(s): M25.512 - Pain in left shoulder Category: Medical Plan . Orders: Orders PT Evaluation and Treatment Today M50.90 - Cervical disc disorder, unspecified, unspecified cervical region
--- OUTSIDE RECORDS SUMMARY | 2024-12-14 11:30 | XMS_ITS | Clinical Summary ---
Author Organization [facility] Address [address] [place] [address] Phone Care Team Providers Care Audio Visual Project Manager Name Role Phone Isaac Boykin NP Primary Care Provider [phone] Allergies Active Allergy Reactions Criticality Noted Date Comments Diphenhydramine Hcl Hives 11/28/2024 Medications pantoprazole (PROTONIX) 40 mg EC tablet TAKE ONE TABLET BY MOUTH EVERY DAY 90 tablet 1 09/26/2024 Active methocarbamoL (ROBAXIN) 750 mg tablet Take 1 tablet (750 mg total) by mouth 4 (four) times a day for 10 days. 20 each 11/28/2024 Active Encounters Date Type Department Care Team Description 11/28/2024 9:03 PM EDT - 11/28/2024 10:49 PM EDT Emergency [facility] Emergency [address] [place] [address] Injury of left shoulder, initial encounter (Primary Dx); Left hip pain Discharge Disposition: Home or Self Care from Last 3 Months Medical History Medical History Date Comments Arthritis DX:Arthritis Hypermobility arthralgia DX:Hype rmobility arthralgia Anxiety DX:Anxiety Covid-19 DX:COVID-19 Class 1 obesity DX:Class 1 obesi ty Diabetes mellitus (CMS/HCC V24, CMS/HCC V28) Family History Medical History Relation Name Comments [...] drink = 0.6 oz pur e alcohol) Comments Unknown Sex and Gender Information Value Date Recorded Sex Assigned at Not on file Legal Sex Female 4:36 PM EST Gender Identity Not on file Sexual Orientation Not on file Obstetrics History Last Filed Vital Signs Vital Sign Reading Time Taken Comments Blood Pressure 106/80 11/28/2024 6:50 PM EDT Pulse 100 11/28/2024 6:50 PM EDT Temperature 36.7 ??C (98.1 ??F) 11/28/2024 6:50 PM ED T Respiratory Rate 20 11/28/2024 6:50 PM EDT Oxygen Saturation 98% 11/28/2024 6:50 PM EDT Inhaled Oxygen Concentration - - Weight 93 kg (205 lb) 11/28/2024 6:50 PM EDT Height 162.6 cm (5' 4 ) 11/28/2024 6:50 PM EDT Body Mass Index 35.19 11/28/2024 6:50 PM EDT Plan of Treatment Health Maintenance Due Date Last Done Comments Breast Cancer Screening 1980 Diabetes: Annual Foot Exam 1990 Diabetes: Annual Retina Eye Exam 1990 DTaP,Tdap,and Td Vaccines (1 - Tdap) 1999 Hepatitis B Vaccines (1 of 3 - 19+ 3-dose series) 1999 Pneumococcal Vaccine: Pediat rics (0 to 5 Years) and At-Risk Patients (6 to 64 Years) (1 of 2 - PCV) 1999 Cervical Cancer Screening: P ap Smear 2001 Cholesterol Screening (Lipid Panel) 06/25/2022 Colorectal Cancer Screening: Colonoscopy 06/25/2022 Depression Screening 06/25/2022 HIV Screening 06/25/2022 Hepatitis C Screening 06/25/2022 Social Influencers of Health Screening 06/25/2022 COVID-19 Vaccine ( - 2023-2 5 season) 2024 Diabetes: Blood Sugar Contro l Test (HGBA1C) 11/29/2024 Influenza Vaccine (Season Ended) 2025 Diabetes: Annual Urine Albumin-Creatinine Ratio (uACR) 10/17/2025 10/17/2024 Diabetes: Annual GFR (Glomer ular Filtration Rate) 10/17/2025 10/17/2024 HIB Vaccines Aged Out No longer eligi [...] patient's age to complete this topic Meningococcal B Vaccine Aged Out No l onger eligible based on patient's age to complete this topic RSV Immunization Patients Un isael 20 months Aged Out No longer eligible b ased on patient's age to complete this topic Varicella Vaccines Aged Out No longer eligible based on patient's age to complete this topic Procedures Procedure Name Priority Date/Time Associated Diagnosis Comments XR HIP 2-3 VIEWS LEFT STAT 11/28/2024 9:23 PM EDT XR SHOULDER 2+ VIEWS LEFT STAT 11/28/2024 9:23 PM EDT from Last 3 Months Results * XR Hip 2-3 Views Left (11/28/2024 9:23 PM EDT) Anatomical Region Laterality Modality Lower Extremities, Hip Left Radiograp hic Imaging 11/29/2024 9:52 AM EDT Impressions 11/29/2024 9:55 AM EDT FINDINGS/IMPRESSION: No acute fracture or dislocation. ??Joint spaces are preserved. ??No focal soft tissue swelling. -------- FINAL REPORT -------- Dictated By: ROCHELLE WREN Dictated Date: 11/29/2024 09:52 ET Assigned Physician: ROCHELLE WREN Reviewed and Electronically Signed By: ROCHELLE WREN Signed Date: 11/29/2024 09:55 ET Workstation ID: [id number] Transcribed By: Self Edit Transcribed Date: 11/29/2024 09:52 ET Narrative 11/29/2024 9:55 AM EDT XR HIP 2-3 VIEWS LEFT INDICATION: ??Pain TECHNIQUE: XR HIP 2-3 VIEWS LEFT COMPARISON: No priors available. Procedure Note Rochelle Wren MD - 11/29/2024 XR HIP 2-3 VIEWS LEFT INDICATION: Pain TECHNIQUE: XR HIP 2-3 VIEWS LEFT COMPARISON: No priors available. IMPRESSION: FINDINGS/IMPRESSION: No acute fracture or dislocation. Joint spaces arepreserved. No focal soft tissue swelling. -------- FINAL REPORT -------- Dictated By: ROCHELLE WREN Dictated Date: 11/29/2024 09:52 ET Assigned Physician: ROCHELLE WREN Reviewed and Electronically Signed By: ROCHELLE WREN Signed Date: 11/29/2024 09:55 ET Workstation ID: [id number] Transcribed By: Self Edit Transcribed Date: 11/29/2024 09:52 ET [facility] Jeremiah Paul DO IMG XR PROCEDURES Final R esult * XR Shoulder 2+ Views Left (11/28/2024 9:23 PM EDT) Anatomical Region Laterality Modality Upper Extremities, Shoulder Left Radi ographic Imaging 11/29/2024 9:55 AM EDT Impressions 11/29/2024 10:04 AM EDT FINDINGS/IMPRESSION: No acute fracture or dislocation. ??Mild degenerative changes at the glenohumeral joint. ??Acromioclavicular joint is maintained. ??No focal soft tissue swelling. -------- FINAL REPORT -------- Dictated By: ROCHELLE WREN Dictated Date: 11/29/2024 09:55 ET Assigned Physician: ROCHELLE WREN Reviewed and Electronically Signed By: ROCHELLE WREN Signed Date: 11/29/2024 10:04 ET Workstation ID: [id number] Transcribed By: Self Edit Transcribed Date: 11/29/2024 09:55 ET Narrative 11/29/2024 10:04 AM EDT XR SHOULDER 2+ VIEWS LEFT INDICATION: ??Pain TECHNIQUE: XR SHOULDER 2+ VIEWS LEFT COMPARISON: No priors available. Procedure Note Rochelle Wren MD - 11/29/2024 XR SHOULDER 2+ VIEWS LEFT INDICATION: Pain TECHNIQUE: XR SHOULDER 2+ VIEWS LEFT COMPARISON: No priors available. IMPRESSION: FINDINGS/IMPRESSION: No acute fracture or dislocation. Mild degenerativechanges at the glenohumeral joint. Acromioclavicular joint is maintained.No focal soft tissue swelling. -------- FINAL REPORT -------- Dictated By: ROCHELLE WREN Dictated Date: 11/29/2024 09:55 ET Assigned Physician: ROCHELLE WREN Reviewed and Electronically Signed By: ROCHELLE WREN Signed Date: 11/29/2024 10:04 ET Workstation ID: [id number] Transcribed By: Self Edit Transcribed Date: 11/29/2024 09:55 ET us Tinstef Daniels Paul DO IMG XR PROCEDURES Final R esult from Last 3 Months Insurance [facility] Care Teams Audio Visual Project Manager Relationship Specialty Start Date End Date Isaac Boykin NP [address], [place] PCP - General 11/12/22
== END 2024-12-14 16:29 | disposition home or self-care (01) ==
LOC: HO.HMCC 10:04
PROVIDERS: PCP Nurse Practitioner Family; Visit Provider Nurse Practitioner Family
DX: M25.552 Pain in left hip (principal); M25.512 Pain in left shoulder; W19.XXXA Unspecified fall, initial encounter

== ENCOUNTER → 2024-12-14 10:03 | Outpatient (BNVA) | payer OTHER, SELFPAY | PROVIDERS: PCP Nurse Practitioner Family; Visit Provider Nurse Practitioner Family | DX: M25.552 Pain in left hip (principal); M25.512 Pain in left shoulder; M50.90 Cervical disc disorder, unspecified, unspecified cervical region; W10.9XXA Fall (on) (from) unspecified stairs and steps, initial encounter; Y93.9 Activity, unspecified; Y92.9 Unspecified place or not applicable; Y99.9 Unspecified external cause status | CPT/HCPCS: 96127; 99212 ==

== ENCOUNTER 2025-02-24 08:24 | Outpatient (AMB) | payer OTHER, SELFPAY ==
[2025-02-24 08:32] VITALS: BP 110/80; PULSE 85; O2SAT 97; BMI 35.6
--- NOTE | 2025-02-24 08:32 | MHC.OFFVIS ---
Vital Signs 02/24/25 08:32 Height 5 ft 5 in Weight 214 lb BMI 35.6 BP 110/80 Blood Pressure Location Lt brachial Position Sitting Pulse 85 Pulse Source Pulse Oximeter Pulse Oximetry (%) 97 Oxygen Delivery Method Room Air Intake Visit Reasons: follow up Intake Note: Patient presents follow up Migraine/Sleep medication. MRI in chart. No Labs/PSG in chart Office Manager Required: No Accompanied by: Self / Same As Patient Allergies diphenhydramine (Benadryl) Allergy (Unknown, Verified 02/24/25 08:39) swelling, hives Benadryl Allergy (Unknown, Uncoded 01/26/24 12:45) hives Pumpkin Allergy (Unknown, Uncoded 01/26/24 12:45) unknown Seafood Allergy (Unknown, Uncoded 01/26/24 12:45) unknown Medication List - Last Reconciled 02/24/25 by HEATH Major albuterol sulfate 90 mcg/actuation (ProAir HFA) 2 puffs inhalation Q4-6H PRN alcohol swabs (Alcohol Pads) 1 pad topical BID 90 days alprazolam 1 mg PO BID 30 days ascorbate calcium (vitamin C) 500 mg PO DAILY 90 days atorvastatin 10 mg PO BEDTIME 90 days betamethasone dipropionate 0.05% 1 appl topical DAILY PRN blood sugar diagnostic (FreeStyle Lite Strips) As directed to test blood sugars TID a day blood-glucose meter (FreeStyle System Kit) Use to check blood sugar TID celecoxib 200 mg PO BID PRN cetirizine 10 mg PO DAILY 30 days cyanocobalamin (vitamin B-12) 500 mcg PO DAILY 30 days Dexcom G7 Mold Making Supervisor (blood-glucose,miniature train driver,cont) to test blood sugar 4 times per day NS Dexcom G7 Sensor (blood-glucose sensor) Test blood sugar 4 times per day, change sensor every 10 days NS docusate sodium (Colace) 100 mg PO BID PRN 30 days duloxetine 60 mg PO DAILY epinephrine (EpiPen 2-Merrill) 0.3 mg (0.3 mL) IM ONCE PRN fenofibrate 54 mg PO DAILY ferrous sulfate 325 mg PO DAILY 30 days gabapentin 600mg qam, 300mg q afternoon, 600mg qhs orally .; 30 days insulin degludec (Tresiba FlexTouch U-100 insulin) 20 units (0.2 mL) subcut DAILY 30 days lancets (FreeStyle Lancets) Use to check blood sugar TID or as needed for signs/symptoms of hypo/hyperglycemia lisinopril 2.5 mg PO DAILY magnesium oxide 400 mg PO BEDTIME 30 days metformin 1,000 mg PO BID pen needle, diabetic Use to inject insulin once a day propranolol 40 mg PO BID riboflavin (vitamin B2) 400 mg PO DAILY 30 days semaglutide 1 mg (0.75 mL) subcut QWEEK Shower Chair daily sumatriptan succinate 50 - 100 mg orally at onset of headache, may repeat in 2 hrs PRN; max 2 tabs per day or 4 tabs/week 30 days tizanidine 4 mg PO BEDTIME PRN 15 days walker daily [walker with seat and wheels daily] HPI Comments Details: 43-yr-old female presents for f/u visit for paresthesia, migraine, sleep difficulties. Pt denies any significant interval medical changes. Pt has been doing PT since October. Her RUE pain has improved - has jst some occasional numbness. However, the LUE numbness, tingling, pain, and weakness has increased. Her neck pain/tightness is a bit better, but she still has intermittent neck pain often triggered by turning her head and cervical extension- such as driving or reading for longer periods. The back is not as bothersome, but feeling that the pain/tightness is increasing again. In the past, she sneezed and this caused her L5-S1 disc to herniate. She has ongoing LLE numbness, tingling, weakness. Has difficulty bending her left foot. Overall, she feels the left side of her body, from head to toe is useless. This can make it difficult to walk further, down stairs- has fallen down the stairs. She is currently taking Gabapentin 600mg bid as 300mg qid was ineffective. Her headaches are better- not as frequent or severe. 10/23/24, MR/MR orbits face neck wo/w con IMPRESSION: No mass. Nonspecific bilateral prominent cervical lymph nodes. Multilevel cervical spondylosis C3 C6. 11/28/24, US/US soft tiss head and/or neck IMPRESSION: Nonspecific prominent normal-appearing lymph nodes.. 08/25/24, previous HPI: Pt is still having difficulty sleeping. She is having more BUE L > R tingling, numbness, weakness, and dropping things. The left hand may become stuck and postured. She is also having pain moving from the left hamstring region through the foot. The leg will sometimes become stiff and posture. This occurs w/ both rest and activity. She did do PT- which helped headaches and right shoulder pain, but still has neck pain. She has been noticing more difficulty swallowing. Tries to manage by eating softer foods, but this can occur with her salvia as well. Sometimes this is a/w feeling like she cannot breathe. She has a history of nocturnal acid reflux. Previous MBS showed esophageal dysmotility. Usually drinks water, rarely takes a shannon-george. Usually avoids heavy meals at bedtime. She does not notice double vision, weakness during the episode. She continues to have snoring, gasping arousals, daytime tiredness. She has not had follow-up home sleep study yet. Sleeps on with several pillows, and moves side to side. She may have weird pains the left side of her head that last 3-4 hours- come and go. This is different than her baseline migraine. Has been having a lot of neck pain recently. She also has Left sided head to toe numbness and tingling. And LUE sharp shooting and dual throbbing pains. Migraine attacks continue to be better.. 09/11/23, BLE EMG/NCS: IMPRESSION: 1. This is an abnormal study. 2. There is electrodiagnostic evidence for left L5-S1 radiculopathy, acute on chronic features. 3. Cannot rule out between a right L5-S1 radiculopathy versus a non localizable peroneal neuropathy. Higher suspicion for radiculopathy. 4. There is no electrodiagnostic evidence for tibial neuropathy. lumbosacral plexopathy, or peripheral neuropathy. 08/20/23BUE EMG/NCS IMPRESSION: 1. This is an abnormal study. 2. 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 3. There is no electrodiagnostic evidence for median neuropathy, brachial plexopathy, or cervical radiculopathy. No ulnar neuropathy on the right. [facility] Medical History Arthritis Hypermobility arthralgia Surgical History (Reviewed 12/14/24 @ 10:57 by Isaac Boykin [facility]) No pertinent past surgical history Family History Other Mental health disorder Substance use disorder Social History Housing: House Alcohol intake: current Alcohol intake frequency: holidays/special occasions only Patient Tobacco Use Status: Former Tobacco user Tobacco use type: Cigarette e-Cigarette/Vaping Use: Never Used Second Hand Smoke Exposure: Yes Substance Use Type: Marijuana service: No Current occupational status: unemployed Cognitive needs: No Hearing needs: No Vision needs: Yes (contacts) Physical Exam Vital Signs: Last Vital Signs Pulse 85 02/24/25 08:32 BP 110/80 02/24/25 08:32 Pulse Ox 97 02/24/25 08:32 Oxygen Delivery Method Room Air 02/24/25 08:32 BMI result Body Mass Index 35.6 Const General: cooperative and no acute distress Orientation/consciousness: patient oriented x3 Resp Effort & Inspection: normal respiratory effort and able to speak in complete sentences Neuro Other: Pupil asymmetry- Left pupil larger, minimally responsive to light- 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 Limited cervical range of motion RUQ muscle strength 5/5, LUE muscle strength 5-/5. Decreased LUE light touch sensation Decreased left ankle range of motion Mild antalgic gait General: patient oriented x3 Cognition (Neuro): normal cognition Deep tendon reflexes (DTR's): Right patellar reflex intensity grade: 2+ and Left patellar reflex intensity grade: 1+ Psych Appearance: grossly normal Mental Status: mental status grossly normal Speech and movement: Normal speech and movement present Affect: normal affect Attitude: cooperative Assessment & Plan Assessment & Plan (1) Muscle spasm: Code(s): M62.838 - Other muscle spasm Category: Medical (2) Paresthesia: Code(s): R20.2 - Paresthesia of skin Category: Medical (3) Low ferritin level: Code(s): R79.0 - Abnormal level of blood mineral Category: Medical (4) Migraine: Code(s): G43.909 - Migraine, unspecified, not intractable, without status migrainosus Category: Medical (5) Lumbar nerve root impingement: Code(s): M54.16 - Radiculopathy, lumbar region Category: Medical (6) Snoring: Code(s): R06.83 - Snoring Category: Medical (7) Excessive daytime sleepiness: Code(s): G47.19 - Other hypersomnia Category: Medical (8) Sleep difficulties: Code(s): G47.9 - Sleep disorder, unspecified Category: Medical Plan Interval workup: 10/23/24, MR/MR orbits face neck wo/w- Nonspecific bilateral prominent cervical lymph nodes. Multilevel cervical spondylosis C3 C6. 11/28/24, US/US soft tiss head and/or neck- Nonspecific prominent normal-appearing lymph nodes.. Previous workup: labs- notable for ferritin 22. B-12 low normal 243 w/ folate 7. CRP 5.7 H, Recent HgA1c further elevated > 12%. ACHR-Ap nd anti-Musk normal. In-lab PSG: inconclusive- due to poor sleep presence BUE EMG/NCS: left ulnar neuropathy at the elbow. C-spine x-ray w/ flex/ext: Interval increase in anterior C3-C6 sharp syndesmophytes. BLE EMG/NCS: left L5-S1 radiculopathy, acute on chronic features, and probabale right L5-S1 radiculopathy versus a non localizable peroneal neuropathy. Discussed that at this time, will need to manage conservatively as diabetes is sub-optimally controlled. MBS- esophageal dysmotility L-spine MRI- L5-S1 large paracentral disc protrusion measuring 1 cm anleroposteriorly w/ central canal stenosis and milly L > R neural foraminal stenosis. ? For worsening neck/back pain in setting of left-sided paresthesia, weakness: We will request pain management consult-noting that patient is actively working to optimize her diabetic control. Trial simple foot exercises to improve ankle flexibility. Increase gabapentin from 600 mg twice a day to 600 mg 3 times a day For low ferritin in setting of RLS s/s: Continue Ferrous sulfate 325mg qd w/ vit C, prn colace. Continue vitamin B12 supplement Follow-up labs, including iron studies in B12 level- as ordered HST-as ordered Continue Gabapentin [id number] (pt asked for decrease in dosing frequency). Future consideration: trial of Mestinon for dysphagia/weakness/SOB For headache and migraine prevention: Continue Riboflavin and Magnesium. Sumatriptan prn acute migraine attack. ? f/u up in review of above and in-clinic in 6 months or sooner prn. Orders: Referrals Pain Management Referral G56.20 - Lesion of ulnar nerve, unspecified upper limb, M24.28 - Disorder of ligament, vertebrae, M50.90 - Cervical disc disorder, unspecified, unspecified cervical region, M54.2 - Cervicalgia, M54.50 - Low back pain, unspecified Medications: Changed From gabapentin 600mg qam, 300mg q afternoon, 600mg qhs orally .; 30 days 150 caps 5RF To gabapentin 600 mg (2 x 300 mg) PO TID 180 caps 5RF 30 days Coding Level of Care Code Est Pt Level 4 (20860) Diagnoses Muscle spasm M62.838 Paresthesia R20.2 Low ferritin level R79.0 Migraine G43.909 Lumbar nerve root impingement M54.16 Snoring R06.83 Excessive daytime sleepiness G47.19 Sleep difficulties G47.9
--- OUTSIDE RECORDS SUMMARY | 2025-02-24 08:35 | XMS_ITS | Clinical Summary ---
Author Organization [facility] Address [address] [place] [address] Phone Care Team Providers Care Stockfeed Miller Name Role Phone Isaac Boykin NP Primary Care Provider [phone] Allergies Active Allergy Reactions Criticality Noted Date [...] EDT - 11/28/2024 10:[address] [facility] Emergency [address] [place] [address] Injury of left shoulder, initial [...] 100 11/28/2024 6:50 PM EDT Temperature 36.7 C (98.1 F) 11/28/2024 6:50 PM EDT Respiratory Rate 20 11/28/2024 6:50 PM EDT [...] 5 Years) and At-Risk Patients (6 to 49 Years) (1 of 2 - PCV) 1999 Cervical Cancer Screening: P ap Smear 2001 Cholesterol Screening (Lipid Panel) 06/25/2022 Colorectal Cancer Screening: Colonoscopy 06/25/2022 HIV Screening 06/25/2022 Hepatitis C Screening 06/25/2022 Social Influencers of Health Screening 06/25/2022 COVID-19 Vaccine ( - 2023-2 5 season) 2024 Depression Screening 07/27/2024 Diabetes: Blood Sugar Contro l Test (HGBA1C) 11/29/2024 Influenza Vaccine (#1) 2025 Diabetes: Annual Urine Albumin-Creatinine Ratio (uACR) [...] EDT FINDINGS/IMPRESSION: No acute fracture or dislocation. Joint spaces are preserved. No focal soft tissue swelling. -------- FINAL REPORT -------- Dictated By: ROCHELLE WREN Dictated Date: 11/29/2024 09:52 ET Assigned Physician: ROCHELLE WREN Reviewed and Electronically Signed By: ROCHELLE WREN Signed Date: 11/29/2024 09:55 ET Workstation ID: [id number] Transcribed By: Self Edit Transcribed Date: 11/29/2024 09:52 ET Narrative 11/29/2024 9:55 AM EDT XR HIP 2-3 VIEWS LEFT INDICATION: Pain [...] Signed Date: 11/29/2024 09:55 ET Workstation ID: [id number] Transcribed By: Self Edit Transcribed Date: 11/29/2024 09:52 ET us [facility] Delbert Paul DO IMG XR PROCEDURES Final R esult * XR Shoulder 2+ Views Left (11/28/2024 9:23 PM EDT) Anatomical Region Laterality Modality Upper Extremities, Shoulder Left Radi ographic Imaging 11/29/2024 9:55 AM EDT Impressions 11/29/2024 10:04 AM EDT FINDINGS/IMPRESSION: No acute fracture or dislocation. Mild degenerative changes at the glenohumeral joint. Acromioclavicular joint is maintained. No focal soft tissue swelling. -------- FINAL REPORT -------- Dictated By: ROCHELLE WREN Dictated Date: 11/29/2024 09:55 ET Assigned Physician: ROCHELLE WREN Reviewed and Electronically Signed By: ROCHELLE WREN Signed Date: 11/29/2024 10:04 ET Workstation ID: [id number] Transcribed By: Self Edit Transcribed Date: 11/29/2024 09:55 ET Narrative 11/29/2024 10:04 AM EDT XR SHOULDER 2+ VIEWS LEFT INDICATION: Pain [...] Signed Date: 11/29/2024 10:04 ET Workstation ID: [id number] Transcribed By: Self Edit Transcribed Date: 11/29/2024 09:55 ET us Yoav Delbert Daleny Humberto DO IMG XR PROCEDURES Final R esult from Last 3 Months Insurance [facility] [employer] Care Teams Stockfeed Miller Relationship Specialty Start Date End Date Isaac Boykin NP [address] [place], [place] PCP - General 11/12/22
--- OUTSIDE RECORDS SUMMARY | 2025-02-24 08:35 | XMS_ITS | Clinical Summary ---
Author Organization [facility] Address [address] [place] [phone] Phone Care Team Providers Care Recreational Programs Director Name Role Phone Isaac Boykin TRAY PACKER Primary Care Provider + Allergies Active Allergy Reactions Criticality Noted Date Comments Diphenhydramine Hcl 12/16/2022 Fish Derived 12/16/2022 Medications ALPRAZolam (XANAX) 1 MG tablet Take 1 mg by mouth. 3 Active atorvastatin (LIPITOR) 10 MG tablet Take 10 mg by mouth. 3 Active FREESTYLE LITE Strp strips 3 Active fenofibrate (LOFIBRA) 54 MG tablet 3 Active gabapentin (NEURONTIN) 300 MG capsule Take 600 mg by mouth nightly at bedtime. 3 Active FREESTYLE 28 gauge lancets 3 Active pantoprazole (PROTONIX) 40 MG tablet 3 Active propranoloL (INDERAL) 40 MG immediate release tablet 40 mg. 3 Active sucralfate (CARAFATE) 100 mg/mL suspension daily as needed. 02 3 Active ASCORBIC ACID WITH ETHAN HIPS 500 MG tablet 4 Active celecoxib (CELEBREX) 200 MG capsule Take 200 mg by mouth 2 (two) times a day as needed. Active VITAMIN B-12 500 MCG tablet Active CYMBALTA 60 mg capsule Active ferrous sulfate 325 mg (65 mg naknek iron) tablet Take 325 mg by mouth daily with breakfast. 5 Active lisinopril (PRINIVIL,ZESTRI L) 2.5 MG tablet Act juliette magnesium oxide (MAG-OX) 400 mg (241.3 mg elemental) tablet Take 400 mg by mouth daily. Active EASY TOUCH 31 gauge x 12/09 Ndle 1 each 3 (three) times a day before meals. 5 Active riboflavin, vitamin B2, 400 mg Tab Take 400 mg by mouth daily. Active SUMAtriptan (IMITREX) 100 MG tablet Take 100 mg by mouth once as needed. 5 Active fluconazole (DIFLUCAN) 150 MG tablet Take 1 tablet (150 mg total) by mouth once as needed. 5 Active metFORMIN (GLUCOPHAGE) 1000 MG tabletIndication s:Type 2 diabetes mellitus with hyperglycemia, with long-term current use of insulin Take 1 tablet (1,000 mg total) by mouth 2 (two) times a day with meals. 180 tablet 3 5 Active semaglutide (OZEMPIC) 1 mg/dose (4 mg/3 mL) subcutaneous injection penIndications:T ype 2 diabetes mellitus with hyperglycemia, with long-term current use of insulin Inject 1 mg under the skin every 7 days. 3 mL 5 5 Active DEXCOM G7 SENSOR Kenisha 1 each by Percutaneous route Every 10 Days. 9 each 3 5 Active TRESIBA FLEXTOUCH U-100 injection penIndications:T ype 2 diabetes mellitus with hyperglycemia, with long-term current use of insulin Inject 24 Units under the skin nightly at bedtime. 30 mL 1 5 Active Active Problems Problem Noted Date Diagnosed Date Arthritis 10/17/2024 Bipolar disorder 10/17/2024 Degenerative disc disease at L5-S1 level 025 Generalized anxiety disorder 10/17/2024 Type 2 diabetes mellitus wit h hyperglycemia, with long-term current use of insulin 10/17/2024 Assessment & Plan (01/09/2025 10:10 AM EDT): Control is improving but is not optimal based upon the patient's dexcom G7 sensor download. No frequent or severe hypoglycemia. Will increase her tresiba dosing to help further improve her glucose control. Continue to work on eating healthy and trying to be active. To call or message with any issues managing her glucose levels. Need to schedule ophtho. Labs ordered Assessment & Plan (11/28/2024 8:19 AM EDT): Patient brought in their dexcom G7 CGM to be shown how to use it. She was shown how to set up and place the sensor. She demonstrated good understanding via teach back. She placed the sensor to the back of their arm without any issues. Showed her how to use the galina. She was able to find the sensor code and enter into the galina to activate the sensor. Reviewed all of the available menu options. Reviewed the alarms on the phone. Shut off high alerts for the time being. Her current glucose control is unknown as she is not checking her glucose levels. No frequent or severe hypoglycemia. Will maintain her regimen until we can review her glucose levels. Continue to work on eating healthy and trying to be active. To call with any issues managing their glucose levels. Needs to schedule an ophtho appointment. I have maintained a long-term, longitudinal relationship with this patient, overseeing care of chronic conditions, including diabetes. This care relationship has significantly influenced my decision-making and treatment plans during today's encounter. Assessment & Plan (10/17/2024 6:12 PM EDT): 44 yo woman, dx with DM 5-6 yrs ago w/ poor control based on reported SMBG/HbA1c. She has some symptoms of neuropathy, ? Due to DM vs back? She is due for eye exam. Discussed role of CGM. Discussed normal insulin physiology & options to improve control, including working on diet/exercise, adjusting current medications and/or adding prandial insulin. Will check labs today. Will increase basal insulin. May try increasing ozempic to 2 mg to see if tolerates vs try shifting to mounjaro. She will call if needs help getting going w/ Dexcom. Will follow up w/ Giselle in 4-6 weeks to review readings & determine what other adjustments should be made. Hirsutism 10/17/2024 Assessment & Plan (10/17/2024 6:14 PM EDT): Will check labs. Discussed rx options. Amenorrhea 10/17/2024 Assessment & Plan (10/17/2024 6:13 PM EDT): History is not really consistent with PCOS as had normal menses for years, other than for a fairly brief period after menarch & more recently. Will check labs, including FSH to see if menopausal & if not, should probably see utility repairer. Encounters Date Type Department Care Team Description 01/02/2025 2:50 PM EDT Office Visit [facility] Endocrinology [address] [place] [address] Jerilyn Russ PA-C Type 2 diabetes mellitus with hyperglycemia, with long-term current use of insulin (Primary Dx) 12/09/2024 Refill [facility] [address] [place] [address] Isaac Boykin NP Medication Refill; refills from Last 3 Months Immunizations No known immunizations Family History Medical History Relation Comments Anxiety disorder Brother 1 Hypertension Brother 1 Anxiety disorder Brother 2 Autism Brother 2 COPD Father Diabetes Father Heart attack Father Hypertension Father Pulmonary embolism Maternal Grandfather Colon cancer Maternal Grandmother Diabetes Maternal Grandmother Stroke Maternal Grandmother Diabetes Mother Heart attack Mother Hypertension Mother Alzheimer's disease Paternal Grandfather Alzheimer's disease Paternal Grandmother Diabetes Paternal Grandmother Lung cancer Paternal Grandmother Relation Status Comments Brother 1 Alive Brother 2 Alive Father Alive Maternal Grandfather Maternal Grandmother Mother Alive Paternal Grandfather Paternal Grandmother Social History Tobacco Use Types Packs/Day Years Used Date Smoking Tobacco: Former Cigarettes Smokeless Tobacco: Never Tobacco Cessation:Counseling Given: Not Answered Alcohol Use Standard Drinks/Week Comments Not Currently 0 (1 standard drink = 0.6 oz pur e alcohol) social Education Answer Date Recorded Are you interested in more education? Not on rose e 12/11/2022 Are you concerned about learning? Not on file 12/11/2022 No 12/11/2022 No 12/11/2022 Digital Access Answer Date Recorded No 12/16/2022 No 12/16/2022 Reliable internet access at home? Not on file 12/16/2022 Device with a working camera? Not on file Comments Unknown Sex and Gender Information Value Date Recorded Sex Assigned at Female 12/11/2022 2:35 PM EDT Legal Sex Female 2:33 PM EDT Gender Identity Female 12/11/2022 2:35 PM EDT Sexual Orientation Straight 12/11/2022 2: 35 PM EDT Last Filed Vital Signs Vital Sign Reading Time Taken Comments Blood Pressure 136/90 01/02/2025 2:57 PM EDT Pulse 94 01/02/2025 2:57 PM EDT Temperature 36.3 C (97.4 F) 01/02/2025 2:57 PM EDT Respiratory Rate 18 01/02/2025 2:57 PM EDT Oxygen Saturation 94% 01/02/2025 2:57 PM EDT Inhaled Oxygen Concentration - - Weight 94.4 kg (208 lb 3.2 oz) 01/02/2025 2:57 P M EDT Height 164.2 cm (5' 4.65 ) 01/02/2025 2:57 PM ED T Body Mass Index 35.03 01/02/2025 2:57 PM EDT Plan of Treatment Upcoming Encounters Date Type Department Care Team (Late st Contact Info) Description 03/13/2025 1:30 PM EDT Office Visit [facility] Endocrinology [address] [phone] Jerilyn Russ PA-C [address] [place] [phone] 04/04/2025 1:30 PM EDT Office Visit [facility] Endocrinology [address] [phone] Becky Rodriguez MD [address] [place] [phone] Health Maintenance Due Date Last Done Comments Adult Td,Tdap Booster 1980 DEPRESSION SCREENING 1992 SMOKING Hx and SMOKELESS TOBACCO SCREENING 1993 HEPATITIS C SCREENING 1998 HIV ONE-TIME SCREENING (18-6 5 YEARS) 1998 PNEUMOCOCCAL VACCINES (0-49 years) (1 of 2 - PCV) 1999 PAP SMEAR 2001 MAMMOGRAM 2020 COVID-19 VACCINE (1 - 2023-2 5 season) 2024 DIABETIC EYE EXAM 10/17/2024 HEMOGLOBIN A1C 01/17/2025 10/17/2024 BLOOD PRESSURE 07/04/2025 01/02/2025 CREATININE LEVEL 10/17/2025 10/17/2024, 09/25/2023, 10/07/2022 POTASSIUM LEVEL 10/17/2025 10/17/2024 HEPATITIS A VACCINES Aged Out No long er eligible based on patient's age to complete this topic HIB VACCINES Aged Out No longer eligi ble based on patient's age to complete this topic MENINGOCOCCAL VACCINES (ACWY) Aged Out No longer eligible based on patient's age to complete this topic MENINGOCOCCAL VACCINES (B) Aged Out N o longer eligible based on patient's age to complete this topic Medical Devices Not on file Procedures Procedure Name Priority Date/Time Associated Diagnosis Comments HEMOGLOBIN A1C Routine 10/17/2024 2:18 PM EDT Type 2 diabetes mellitus with hyperglycemia, with long-term current use of insulin COMPREHENSIVE METABOLIC PANEL Routine 10/17/2024 2:18 PM EDT Type 2 diabetes mellitus with hyperglycemia, with long-term current use of insulin from Last 3 Months or Most Recently Relevant to Health Maintenance Results * (ABNORMAL) Comprehensive metabolic panel (10/17/2024 2:18 PM EDT) SODIUM 133 133 - 146 mmol/L [facility] POTASSIUM 4.4 3.3 - 5.1 mmol/L [facility] CHLORIDE 98 96 - 108 mmol/L [facility] CO2 22 21 - 35 mmol/L [facility] BUN 9 6 - 19 mg/dL [facility] CREATININE 0.50 0.5 - 1.5 mg/dL [facility] GLUCOSE 299(H) 70 - 99 mg/dL [facility] ALBUMIN 4.1 3.9 - 4.8 g/dL [facility] TOTAL PROTEIN 7.1 6.5 - 8.0 g/dL [facility] CALCIUM 8.7 8.4 - 10.3 mg/dL [facility] ALKALINE PHOSPHATASE 61 39 - 117 U/L [facility] TOTAL BILIRUBIN 0.3 0.0 - 1.2 mg/dL [facility] AST 17 0 - 37 U/L [facility] ALT 18 0 - 40 U/L [facility] GLOBULIN 3.0 1 - 4.8 g/dL [facility] EGFR 119 >59 mL/min/1.7 3m2 [facility] Comment:Estimated glomerular filtration rate calculated using the CKD-EPI refit equation. ANION GAP 17 10 - 20 mmol/L [facility] Blood 10/17/2024 2:18 PM EDT 10/17/2024 2:24 PM EDT Becky Rodriguez MD LAB BLOOD ORDERABLES F inal Result [address] [phone] * (ABNORMAL) Hemoglobin A1c (10/17/2024 2:18 PM EDT) HEMOGLOBIN A1C 10.7(H) 4.3 - 5.8 % [facility] Blood 10/17/2024 2:18 PM EDT 10/17/2024 2:24 PM EDT Becky Rodriguez MD LAB BLOOD ORDERABLES F inal Result [address] [phone] from Last 3 Months or Most Recently Relevant to Health Maintenance [place] [address] [address] [place] [address] [employer] A[employer] ACO Care Teams Recreational Programs Director Relationship Specialty Start Date End Date Isaac Boykin NP [address] [facility] [place] [address] [email or web address] PCP - General 12/11/22 Additional Source Comments The information contained in this document represents components of the legal health record. It is not the complete legal health record.[facility]
== END 2025-02-24 09:32 | disposition home or self-care (01) ==
LOC: HO.HSMS 08:24
PROVIDERS: PCP Nurse Practitioner Family; Visit Provider Nurse Practitioner Family
DX: M62.838 Other muscle spasm (principal); R20.2 Paresthesia of skin; R79.0 Abnormal level of blood mineral; G43.909 Migraine, unspecified, not intractable, without status migrainosus; M54.16 Radiculopathy, lumbar region; R06.83 Snoring; G47.19 Other hypersomnia; G47.9 Sleep disorder, unspecified
CPT/HCPCS: 99214

== ENCOUNTER → 2025-02-24 08:24 | Outpatient (BNVA) | payer OTHER, SELFPAY | PROVIDERS: PCP Nurse Practitioner Family; Visit Provider Nurse Practitioner Family | DX: R20.0 Anesthesia of skin (principal); R20.2 Paresthesia of skin; G43.909 Migraine, unspecified, not intractable, without status migrainosus; M54.16 Radiculopathy, lumbar region; R06.83 Snoring; M62.838 Other muscle spasm; G47.19 Other hypersomnia | CPT/HCPCS: 99212 ==

== ENCOUNTER 2025-02-27 13:03 | Outpatient (REF) | payer OTHER, SELFPAY ==
[2025-02-27 16:19] LABS: MANUAL DIFF FLAG NO
[2025-02-27 16:24] LABS: Hematocrit 41.6 % (37.0-47.0); Hemoglobin 13.8 g/dl (12.0-16.0); Imm Gran Abs Auto 0.02 X10*3/uL (0.00-0.03); Imm Gran Pct Auto 0.3 % (0.0-0.4); Lymphocytes Absolute Auto 2.0 X10*3/uL (1.2-4.9); Mean Corpuscular HGB Conc 33.2 g/dl (31.0-35.0); Mean Corpuscular Hemoglobin 29.2 pg (27.0-33.0); Mean Corpuscular Volume 87.9 fL (80.0-98.0); NRBC Abs Auto 0.000 X10*3/uL (0.0-0.012); NRBC Pct Auto 0.0 /100WBC (0.0-0.2); Platelet Count 343 X10*3/uL (160-400); Red Blood Count 4.73 X10*6/uL (4.20-5.50); White Blood Count 5.9 X10*3/uL (4.8-10.8)
[2025-02-27 16:26] LABS: Appearance Urine Clear; Glucose Urine UA >=1000 mg/dL (Negative); PH 5.5 (5.0-9.0); Specific Gravity - Urine >= 1.030 (1.005-1.025); UMIC TRIGGER UACC YES
[2025-02-27 16:50] LABS: Alanine Aminotransferase 22 U/L (0-31); Albumin Level 4.3 g/dL (3.5-5.0); Alkaline Phosphatase 68 U/L (39-117); Anion Gap 13 (12-20); Aspartate Amino Transferase 33 U/L (5-31); Blood Urea Nitrogen 11 mg/dL (9-16); Calcium 8.6 mg/dL (8.4-10.2); Carbon Dioxide 24 mmol/L (22-29); Chloride 103 mmol/L (96-108); Cholesterol 108 mg/dL (<200); Estimated Glomerular Filt Rate > 60; HDL Cholesterol 33 mg/dL (>40); Potassium 4.4 mmol/L (3.3-5.1); Sodium 136 mmol/L (135-145); Total Protein 7.2 g/dL (6.5-8.0); Triglycerides 239 mg/dL (<150)
[2025-02-28 13:57] LABS: Antibody to SS-A Antigen 2.4 POS AI (<1.0 NEG); Antibody to SS-B Antigen <1.0 NEG AI (<1.0 NEG)
== END 2025-02-27 13:04 | disposition home or self-care (01) ==
LOC: HO.HMGCLDS 13:03
PROVIDERS: PCP Nurse Practitioner Family; Visit Provider Nurse Practitioner Family
DX: Z00.01 Encounter for general adult medical examination with abnormal findings (principal); E28.2 Polycystic ovarian syndrome; E11.65 Type 2 diabetes mellitus with hyperglycemia; H04.123 Dry eye syndrome of bilateral lacrimal glands; Z13.31 Encounter for screening for depression; Z13.39 Encounter for screening examination for other mental health and behavioral disorders
CPT/HCPCS: 36415; 80053; 80061; 81001; 82570; 84443; 85025; 86235; 96127; 99396

== ENCOUNTER 2025-02-27 13:03 | Outpatient (AMB) | payer OTHER, SELFPAY ==
--- NOTE | 2025-02-27 13:05 | A.OFFPC_ITS ---
Vital Signs 02/27/25 13:06 Height 5 ft 5 in Weight 214 lb BMI 35.6 BP 102/78 Blood Pressure Location Lt brachial Position Sitting Respiration 16 Pulse 87 Pulse Source Pulse Oximeter Temp 98.2 F Temp Source Oral Pulse Oximetry (%) 96 Oxygen Delivery Method Room Air Intake Visit Reasons: PE Special Events Manager Required: No Accompanied by: Self / Same As Patient Allergies diphenhydramine (Benadryl) Allergy (Unknown, Verified 02/27/25 13:05) swelling, hives Benadryl Allergy (Unknown, Uncoded 01/26/24 12:45) hives Pumpkin Allergy (Unknown, Uncoded 01/26/24 12:45) unknown Seafood Allergy (Unknown, Uncoded 01/26/24 12:45) unknown Tobacco use date assessed: 02/27/25 Dental Screening Dental Screen Date: 02/27/25 Did you have a dental visit in the last 12 months?: No Did you have a dental problem in the last 6 months where you did not have access to dental care?: No Was dental information given to patient?: Patient declined HPI PE HPI Details History of Present Illness The patient is a 44-year-old female presenting with a physical exam and management of her chronic conditions. She has a history of uncontrolled diabetes mellitus, with her current Hemoglobin A1c level at 11.7%. She is under the care of an siding stapler for this condition. The patient also has a history of Polycystic Ovary Syndrome (PCOS), which has resulted in facial hair growth, particularly on the chin. She requires a referral to gynecology for further management and a Pap smear. Obesity is another concern, as noted during the physical examination. The patient is also experiencing peripheral neuropathy, although sensation in her feet remains intact as per the tuning fork and monofilament tests. Health Maintenance - Pap smear needed - Mammogram due - Colon cancer screening up-to-date -reports she will call to make her own e Taste Filter exam appt. Social History Review of Systems Physical Exam General: Cooperative, healthy appearing, comfortable, no acute distress and well developed Orientation: Patient oriented x3 Limitations: No limitations Head: Normal to inspection Ears: Hearing grossly normal bilaterally Nose: Normal external nose present Face and sinus: Facial hair on chin especially noted Eyes: Appearance normal, both eyes and all related structures Neck: Normal visual inspection and Yes full ROM Respiratory: Normal respiratory effort and able to speak in complete sentences. Clear to auscultation bilaterally Cardiovascular: Regular rate and rhythm. Normal S1 and S2 GI: Normal to inspection. Soft to palpation and nontender : testicles without masses/lesions and no hernias appreciated Skin: No rashes or lesions noted Neuro: Patient oriented x3, some neuropathy noted though felt tuning fork and monofilament to her feet Extremities: Normal to inspection, feet were intact by lap no signs of infection Results - Labs: Hemoglobin A1c 11.7% Plan The patient will continue to manage her diabetes mellitus under the care of her siding stapler, with a focus on improving her Hemoglobin A1c levels. A referral to gynecology will be made for further management of her Polycystic Ovary Syndrome and to perform a Pap smear. Regular follow-ups with cardiology and pu lmonology will be maintained as part of her comprehensive care plan. [facility] Medical History Arthritis Hypermobility arthralgia Surgical History No pertinent past surgical history Family History Other Mental health disorder Substance use disorder Social History Housing: House Alcohol intake: current Alcohol intake frequency: holidays/special occasions only Patient Tobacco Use Status: Former Tobacco user Tobacco use type: Cigarette e-Cigarette/Vaping Use: Never Used Second Hand Smoke Exposure: Yes Substance Use Type: Marijuana service: No Current occupational status: unemployed Cognitive needs: No Hearing needs: No Vision needs: Yes (contacts) Questionnaire PHQ-9 Over the last 2 weeks, how often have you been bothered by any of the following problems? 1. Little interest or pleasure in doing things: several days 2. Feeling down, depressed, or hopeless: several days 3. Trouble falling or staying asleep, or sleeping too much: nearly every day 4. Feeling tired or having little energy: nearly every day 5. Poor appetite or overeating: several days 6. Feeling bad about yourself - or that you are a failure or have let yourself or your family down: several days 7. Trouble concentrating on things, such as reading the newspaper or watching television: more than half the days 8. Moving or speaking so slowly that other people could have noticed. Or the opposite - being so fidgety or restless that you have been moving around a lot more than usual: nearly every day 9. Thoughts that you would be better off or of hurting yourself in some way: not at all Total score: 15 Depression Screening Interpretation: Positive Depression Screening Done: Yes 45123 - PHQ-9 Billing: Yes Source: Developed by Drs. Matthew Walton, Jazzmine Florian, Eloy Jaramillo and colleagues, with an educational bryce from [employer]. Thrive Questionnaire Date Thrive assessed: 12/14/24 I am a: Patient What is your living situation today?: I have a steady place to live Within the past 12 months, did the food you bought not last and you didn't have the money to get more?: Never true Within the past 12 months, did you worry whether your food would run out before you got money to buy more?: Never true Do you have trouble paying for medicines?: No Do you have trouble getting transportation to medical appointments?: No Do you have trouble paying your heating and electricity bill?: Yes Do you have trouble taking care of your child, family member or friend?: No Do you have trouble with day-to-day activities such as bathing, preparing meals, shopping, managing finances, etc.?: Yes Are you currently unemployed and looking for a job?: Yes Are you interested in more education?: Yes Please select the resources that you would like help with: Utilities Currently or been in a relationship where the following occur: No concerns reported THRIVE Score: 1 AUDIT C Alcohol Use Questionnaire (AUDIT-C) 1. How often do you have a drink containing alcohol?: Monthly or less 2. How many drinks containing alcohol do you have on a typical day when you are drinking?: 1 or 2 3. How often do you have six or more drinks on one occasion?: Never Total Score: 1 RADHA-7 AMB Questionnaire RADHA-7 Date RADHA - 7 assessed: 02/27/25 Feeling nervous, anxious, or on edge: 3 = Nearly every day Not being able to stop or control worryin = Nearly every day Worrying too much about different things: 3 = Nearly every day Trouble relaxin = Nearly every day Being so restless that it is hard to sit still: 3 = Nearly every day Becoming easily annoyed or irritable: 3 = Nearly every day Feeling afraid as if something awful might happen: 3 = Nearly every day Total RADHA-7 score (0-4 normal; 5-9 mild; 10-14 moderate; 15-21 severe): 21 Source: Developed by Drs. Matthew Walton, Jazzmine Florian, Eloy Jaramillo and colleagues, with an educational bryce from [employer]. RADHA-7 Assessment Billing RADHA-7 Assessment Tool: RADHA-7 Assessment 36639 (denies any si or hi, has a therapist and psychiatrist) Physical exam (Primary Care) Vital Signs: Last Vital Signs Temp 98.2 F 02/27/25 13:06 Pulse 87 02/27/25 13:06 Resp 16 02/27/25 13:06 BP 102/78 02/27/25 13:06 Pulse Ox 96 02/27/25 13:06 Oxygen Delivery Method Room Air 02/27/25 13:06 BMI result Body Mass Index 35.6 Tobacco/Smoking Status: Tobacco use Status Tobacco use date assessed 02/27/25 02/27/25 13:15 Patient Tobacco Use Status Former Tobacco user 02/27/25 13:06 Tobacco use type Cigarette 02/27/25 13:06 e-Cigarette/Vaping Use Never Used 02/27/25 13:06 PHQ-9: PHQ-9 Score PHQ-9: Total score 15 02/27/25 13:25 Depression Screening Interpretation: Positive Thrive Assessment: Date of Thrive Assessment Date Thrive assessed 12/14/24 02/27/25 13:06 Currently or been in a relationship where the following occur: No concerns reported Coding Level of Care Code Est Pt Level 3 (59831) Est Pt Prev Care 40-64y(29034) Diagnoses Screening for cervical cancer Z12.4 PCOS (polycystic ovarian syndrome) E28.2 Encounter for routine adult physical exam with abnormal findings Z00.01 Additional Codes RADHA-7 Assessment Billing - RADHA-7 Assessment Tool: RADHA-7 Assessment 07105 ([id number]) PHQ-9 - 16371 - PHQ-9 Billing: Yes ([id number]) Assessment & Plan Assessment & Plan (1) Screening for cervical cancer: Code(s): Z12.4 - Encounter for screening for malignant neoplasm of cervix Category: Medical (2) PCOS (polycystic ovarian syndrome): Code(s): E28.2 - Polycystic ovarian syndrome Category: Medical (3) Encounter for routine adult physical exam with abnormal findings: Code(s): Z00.01 - Encounter for general adult medical examination with abnormal findings Category: Medical Plan . Orders: Orders Complete Blood Count Auto Diff Today E11.65 - Type 2 diabetes mellitus with hyperglycemia Comprehensive [place]. Panel Fast Today E11.65 - Type 2 diabetes mellitus with hyperglycemia Lipid Panel Today E11.65 - Type 2 diabetes mellitus with hyperglycemia TSH reflex Free T4 Today E11.65 - Type 2 diabetes mellitus with hyperglycemia UA CC w/rflx Micro + Cult Today E11.65 - Type 2 diabetes mellitus with hyperglycemia Microalbumin, Random (w Creat) Today E11.65 - Type 2 diabetes mellitus with hyperglycemia MM screening mammo BI Today Z12.31 - Encounter for screening mammogram for malignant neoplasm of breast Referrals [facility] Referral E28.2 - Polycystic ovarian syndrome, Z12.4 - Encounter for screening for malignant neoplasm of cervix Endocrinology Referral E11.65 - Type 2 diabetes mellitus with hyperglycemia Medications: Refilled epinephrine (EpiPen 2-Merrill) 0.3 mg (0.3 mL) IM ONCE PRN 2 ea 0RF anaphylaxis
[2025-02-27 13:06] VITALS: BP 102/78; PULSE 87; RESP 16; TEMP 36.8; O2SAT 96; BMI 35.6
--- OUTSIDE RECORDS SUMMARY | 2025-02-27 13:23 | XMS_ITS | Clinical Summary ---
Author Organization [facility] Address [address] [place] [address] Phone Care Team Providers Care Fur Cutting Machine Operator Name Role Phone Isaac Boykin NP Primary Care Provider [phone] Allergies Active Allergy Reactions Criticality Noted Date [...] EDT - 11/28/2024 10:49 PM EDT Emergency [facility] Emergency [address] [place] [address] Injury of left shoulder, initial [...] Signed Date: 11/29/2024 09:55 ET Workstation ID: [id number] Transcribed By: Self Edit Transcribed Date: 11/29/2024 [...] Signed Date: 11/29/2024 09:55 ET Workstation ID: [id number] Transcribed By: Self Edit Transcribed Date: 11/29/2024 09:52 ET [facility] Delbert Paul DO IMG XR [...] Signed Date: 11/29/2024 10:04 ET Workstation ID: [id number] Transcribed By: Self Edit Transcribed Date: 11/29/2024 [...] Signed Date: 11/29/2024 10:04 ET Workstation ID: [id number] Transcribed By: Self Edit Transcribed Date: 11/29/2024 09:55 ET us Yoav Delbert Daleny Humberto DO IMG XR PROCEDURES Final R esult from Last 3 Months Insurance [facility] [employer] PLAN Care Teams Fur Cutting Machine Operator Relationship Specialty Start Date End Date Isaac Boykin NP [address] [place], [place] PCP - General 11/12/22
--- OUTSIDE RECORDS SUMMARY | 2025-02-27 13:23 | XMS_ITS | Clinical Summary ---
Author Organization [facility] Address [address] [place] [phone] Phone Care Team Providers Care Senior Advisor Name Role Phone Isaac Boykin HEAD OF SALES [employer] Primary Care Provider + Allergies Active Allergy [...] Active ferrous sulfate 325 mg (65 mg [place] iron) tablet Take 325 mg by mouth [...] menopausal & if not, should probably see accounts receivable representative. Encounters Date Type Department Care Team Description 01/02/2025 2:50 PM EDT Office Visit [facility] [address] [place] [address] Jerilyn Russ PA-C Type 2 diabetes mellitus with hyperglycemia, with long-term current use of insulin (Primary Dx) 12/09/2024 [address]ill [facility] [address] [facility] [place] [address] Isaac Boykin NP Medication Refill; refills from [...] Description 03/13/2025 1:30 PM EDT Office Visit [facility] [address] [phone] Jerilny Russ PA-C [address] [place] [phone] 04/04/2025 1:30 PM EDT Office Visit [facility] [address] [phone] Becky Rodriguez MD [address] [place] [id number] Health Maintenance Due Date Last Done Comments [...] EDT) SODIUM 133 133 - 146 mmol/L [facility] POTASSIUM 4.4 3.3 - 5.1 mmol/L [facility] CHLORIDE 98 96 - 108 mmol/L [facility] CO2 22 21 - 35 mmol/L [facility] BUN 9 6 - 19 mg/dL [facility] CREATININE 0.50 0.5 - 1.5 mg/dL [facility] GLUCOSE 299(H) 70 - 99 mg/dL [facility] ALBUMIN 4.1 3.9 - 4.8 g/dL [facility] TOTAL PROTEIN 7.1 6.5 - 8.0 g/dL [facility] CALCIUM 8.7 8.4 - 10.3 mg/dL [facility] ALKALINE PHOSPHATASE 61 39 - 117 U/L [facility] TOTAL BILIRUBIN 0.3 0.0 - 1.2 mg/dL [facility] AST 17 0 - 37 U/L [facility] ALT 18 0 - 40 U/L [facility] GLOBULIN 3.0 1 - 4.8 g/dL [facility] EGFR 119 >59 mL/min/1.7 3m2 [facility] Comment:Estimated glomerular filtration rate calculated using the CKD-EPI refit equation. ANION GAP 17 10 - 20 mmol/L [facility] Blood 10/17/2024 2:18 PM EDT 10/17/2024 2:24 PM EDT Becky Rodriguez MD LAB BLOOD ORDERABLES F inal Result [address] [phone] * (ABNORMAL) Hemoglobin A1c (10/17/2024 2:18 PM EDT) HEMOGLOBIN A1C 10.7(H) 4.3 - 5.8 % [facility] Blood 10/17/2024 2:18 PM EDT 10/17/2024 2:24 PM EDT Becky Rodriguez MD LAB BLOOD ORDERABLES F inal Result [address] [phone] from Last 3 Months or Most Recently Relevant to Health Maintenance [place] [address] [place] [address] [employer] A[employer] Care Teams Senior Advisor Relationship Specialty Start Date End Date Isaac Boykin NP [address] [facility] [place] [address] [email or web address] PCP - General 12/11/22 Additional Source Comments The information contained in this document represents components of the legal health record. It is not the complete legal health record.[facility]
== END 2025-02-27 14:33 | disposition home or self-care (01) ==
LOC: HO.HMCC 13:04
PROVIDERS: PCP Nurse Practitioner Family; Visit Provider Nurse Practitioner Family
DX: Z00.01 Encounter for general adult medical examination with abnormal findings (principal); E28.2 Polycystic ovarian syndrome

== ENCOUNTER 2025-03-10 15:07 | Outpatient (AMB) | payer OTHER, SELFPAY ==
--- NOTE | 2025-03-10 15:08 | MHC.OFFVIS ---
Vital Signs 03/10/25 15:13 Height 5 ft 5 in Weight 214 lb BMI 35.6 BP 120/73 Blood Pressure Location Lt brachial Position Sitting Pulse 90 Pulse Source Pulse Oximeter Pulse Oximetry (%) 97 Oxygen Delivery Method Room Air Intake Visit Reasons: Cervicalgia Intake Note: Pain today 01/03 Audio Experience Expert Required: No Accompanied by: Self / Same As Patient Allergies diphenhydramine (Benadryl) Allergy (Unknown, Verified 03/10/25 15:13) swelling, hives Pumpkin Allergy (Unknown, Uncoded 01/26/24 12:45) unknown Seafood Allergy (Unknown, Uncoded 01/26/24 12:45) unknown HPI Comments Details: The patient is a 45-year-old female presenting with neck pain. The neck pain has been present for about two and a half years without any inciting accidents. The patient has undergone physical therapy last year and is currently undergoing it again at [facility], with minimal relief. The pain worsens with looking up and slightly with sapx-kq-jopj movements. The pain radiates to the left arm and affects all fingers, indicating possible ulnar neuropathy. The patient was diagnosed with lupus last week and has a history of arthritis, neuropathy, degenerative joint disease, and cervical and spinal stenosis. The pain began in 2017 and has worsened over the past two and a half years, affecting daily activities, mobility, and sleep. The patient reports constant pain ranging from 7 to 9 out of 10 in the morning and before bedtime, with slight improvement to 6 to 7 out of 10 midday. The pain is described as throbbing, shooting, burning, tingling, pinching, sore, heavy aching, tiring, fearful, and radiating tightness. The patient has diabetes mellitus with a recent A1c of 11.6 and has started seeing an Clinical Admissions Manager for management. The patient does not smoke, consumes alcohol once a week, and drinks one cup of coffee daily. The patient experiences migraines about five times a week, which she believes are connected to her neck pain. - Onset: Pain started approximately two and a half years ago. - Quality: Described as throbbing, shooting, burning, tingling, pinching, sore, heavy aching, tiring, fearful, and radiating tightness. - Location: Primarily in the neck, radiating to the left arm and all fingers. - Exacerbating factors: Worsens with looking up and euec-kh-doxb movements. - Relieving factors: Minimal relief from physical therapy. - Interference: Affects daily activities, mobility, and sleep. - Affect: Pain impacts daily activities and sleep, causing significant distress. - Analgesia: Currently taking gabapentin, Celebrex, and magnesium oxide for pain management. - Adverse Effects: No specific adverse effects from current medications reported. - Activities of Daily Living: Pain affects cooking, washing dishes, reading, driving, and sleeping. - Aberrant Drug Related Behaviors: No aberrant behaviors reported. Oswestry Neck Pain Disability Score=37 [facility] Medical History SS-A antibody positive Esophageal dysmotility Uncontrolled diabetes mellitus with hyperglycemia PCOS (polycystic ovarian syndrome) Bipolar 1 disorder Anxiety Left shoulder pain Cervical neck pain with evidence of disc disease Ulnar neuropathy Migraine Right shoulder pain Cervicalgia Arthritis Hypermobility arthralgia Surgical History No pertinent past surgical history Family History Other Mental health disorder Substance use disorder Social History Housing: House Alcohol intake: current Alcohol intake frequency: holidays/special occasions only Patient Tobacco Use Status: Former Tobacco user Tobacco use type: Cigarette e-Cigarette/Vaping Use: Never Used Second Hand Smoke Exposure: Yes Substance Use Type: Marijuana service: No Current occupational status: unemployed Cognitive needs: No Hearing needs: No Vision needs: Yes (contacts) Review of Systems Const Details: - Musculoskeletal: Reports neck pain radiating to the left arm and fingers, worsens with movement. - Neurological: Reports constant pain, throbbing, shooting, burning, tingling, pinching, sore, heavy aching, tiring, fearful, radiating tightness. - Endocrine: Reports poorly controlled diabetes with recent A1c of 11.6. - Neurological: Reports migraines about five times a week, associated with neck pain. - General: Denies smoking, reports alcohol consumption once a week. All systems reviewed & are unremarkable except as noted in HPI and below Physical Exam Vital Signs: Last Vital Signs Pulse 90 03/10/25 15:13 BP 120/73 08/15/25 15:13 Pulse Ox 97 03/10/25 15:13 Oxygen Delivery Method Room Air 03/10/25 15:13 BMI result Body Mass Index 35.6 General: Appears afebrile. Alert and oriented. Mood and affect appropriate. Follows and participates in conversation appropriately. Respiratory effort is unlabored. No cough. Able to transition from sit to stand unassisted. Ambulates with bilaterally normal heel strike and toe off. Neck Neck: Yes normal visual inspection, Yes no lymphadenopathy, Yes supple, No anterior neck swelling, Yes no JVD, No prominent supraclavicular fat pad and Yes prominent dorsocervical fat pad Back/Spine/Pelvis Cervical Spine: No collar present, No Lhermitte's sign positive, loss of normal cervical lordosis, cervical muscular tenderness, pain with cervical ROM (left lateral and extension, limited ROM), No Cervical spine scars present, cervical spasm, No Cervical spine tenderness and No step off deformity Thoracic/Lumbar Spine: thoracic and lumbar spine normal to inspection, No Thoracic/lumbar spine scar(s), pain with thoraco-lumbar ROM, thoraco-lumbar ROM limited, No thoracic spinal tenderness and No lumbar spinal tenderness Sacroiliac joints: bilaterally tender to palpation Results Reviewed Results Reviewed: MRI SOFT TISSUE NECK WITHOUT AND WITH CONTRAST 10/23/24 CLINICAL INFORMATION: Difficulty swallowing. COMPARISON: None available. TECHNIQUE: MRI of the soft tissue neck was obtained using routine sequences without and with contrast. Intravenous contrast: Gadavist 9.5 mL. No reported immediate complications. FINDINGS: Bilateral prominent with fatty hilum cervical lymph nodes, the largest in the left to be compartment measures 1.5 cm. Skull base, nasopharynx, retropharynx, oropharynx, hypopharynx and larynx demonstrated no gross masses. Nicking Machine Operator spaces, parapharyngeal compartments and carotid compartments demonstrated no masses or fluid collections. Salivary glands demonstrated normal enhancement pattern without gross masses. The thyroid gland is normal without dominant nodules. The flow-void signal within the main vessels is normal. The oral cavity sublingual and submandibular compartments demonstrated no gross masses or fluid collections. No masses within the intraconal or the extraconal compartments of the orbits. The lacrimal glands are mildly prominent. The eyeballs are intact without enhancing lesion. Multilevel cervical spondylosis C3 C6 resulting in a reverse curvature apex at C4-5. IMPRESSION: No mass. Nonspecific bilateral prominent cervical lymph nodes. Multilevel cervical spondylosis C3 C6. XR CERVICAL SPINE 09/25/23 CLINICAL INFORMATION: Neck pain COMPARISON: Cervical spine x-ray on 08/11/2016 TECHNIQUE: 6 views of the cervical spine, inclusive of flexion and extension views, were obtained. FINDINGS: The visualized cervical vertebrae are intact with normal alignment. Odontoid process is intact with normal C1/C2 lateral masses alignment. Pre-dental interval is normal. Pre vertebral soft tissue is normal in thickness. Multilevel sharp anterior syndesmophytes are seen from C3 to C6. Alignment of cervical spine is normal and stable in flexion and extension. Bilateral oblique x-rays of cervical spine show patent cervical neural foramina. IMPRESSION: 1. Interval increase in anterior C3-C6 sharp syndesmophytes. 2. No fracture or dislocation of cervical spine is seen. 3. Normal stable cervical spine alignment in flexion and extension is demonstrated. Assessment & Plan Assessment & Plan (1) Cervicalgia: Code(s): M54.2 - Cervicalgia Category: Medical (2) Syndesmophyte: Code(s): M24.28 - Disorder of ligament, vertebrae Category: Medical (3) Cervical spondylosis: Code(s): M47.812 - Spondylosis without myelopathy or radiculopathy, cervical region Category: Medical (4) Cervicogenic headache: Code(s): G44.86 - Cervicogenic headache Category: Medical (5) Muscle spasms of neck: Code(s): M62.838 - Other muscle spasm Category: Medical (6) Degenerative disc disease, cervical: Code(s): M50.30 - Other cervical disc degeneration, unspecified cervical region Category: Medical Plan The plan for managing the patient's neck pain includes considering diagnostic injections in the neck to identify the source of pain, particularly focusing on the facet joints and disc degeneration. Radiofrequency ablation is a potential treatment option, pending insurance approval, which could provide significant pain relief up to 12 months. However, the patient's A1c must be reduced to below 7.5 before proceeding with certain procedures such as Sprint PNS trial or therapeutic injections with steroids. Informational pamphlets provided to patient. The patient is advised to continue current medications, including gabapentin and Celebrex, and to manage diabetes with the help of an Clinical Admissions Manager. She also has pending referral to Rheumatology for lupus management which is planned for the end of June. Schedule Bilateral Diagnostic C4-C5-C6 MBB with local and fluoroscopy. Expectations, risks and benefits were reviewed. Patient is aware she will be contacted to schedule this procedure. All questions and concerns have been answered and patient agreed with the treatment plan. Follow up after injections and sooner as needed. Patient was informed and verbally consented to the use of an ambient scribe for clinic note documentation during this visit. Coding Level of Care Code New Pt Level 4 (01767) Diagnoses Cervicalgia M54.2 Syndesmophyte M24.28 Cervical spondylosis M47.812 Cervicogenic headache G44.86 Muscle spasms of neck M62.838 Degenerative disc disease, cervical M50.30
--- OUTSIDE RECORDS SUMMARY | 2025-03-10 15:09 | XMS_ITS | Clinical Summary ---
Author Organization [facility] Address [address] [place] [address] Phone Care Team Providers Care Certified Addiction Counselor Name Role Phone Isaac Boykin NP Primary Care Provider [phone] Allergies Active Allergy Reactions Criticality Noted Date Comments Diphenhydramine Hcl Hives 11/28/2024 Medications pantoprazole (PROTONIX) 40 mg EC tablet TAKE ONE TABLET BY MOUTH EVERY DAY 90 tablet 1 09/26/2024 Active methocarbamoL (ROBAXIN) 750 mg tablet Take 1 tablet (750 mg total) by mouth 4 (four) times a day for 10 days. 20 each 11/28/2024 Active Medical History Medical History Date Comments Arthritis DX:Arthritis Hypermobility arthralgia DX:Hype rmobility arthralgia Anxiety DX:Anxiety Covid-19 DX:COVID-19 Class 1 obesity DX:Class 1 obesi ty Diabetes mellitus ([facility] V24, [facility] V28) Family History Medical History Relation Name [...] on patient's age to complete this topic Insurance [facility] [employer] Care Teams Certified Addiction Counselor Relationship Specialty Start Date End Date Isaac Boykin NP [address] [place], [place] PCP - General 11/12/22
[2025-03-10 15:13] VITALS: BP 120/73; PULSE 90; O2SAT 97; BMI 35.6
== END 2025-03-10 15:47 | disposition home or self-care (01) ==
LOC: HO.PMC 15:08
PROVIDERS: PCP Nurse Practitioner Family; Visit Provider Nurse Practitioner Family
DX: M54.2 Cervicalgia (principal); M24.28 Disorder of ligament, vertebrae; M47.812 Spondylosis without myelopathy or radiculopathy, cervical region; G44.86 Cervicogenic headache; M62.838 Other muscle spasm
CPT/HCPCS: 99204

== ENCOUNTER → 2025-03-10 15:07 | Outpatient (BNVA) | payer OTHER, SELFPAY | PROVIDERS: PCP Nurse Practitioner Family; Visit Provider Nurse Practitioner Family | DX: M54.2 Cervicalgia (principal); M24.28 Disorder of ligament, vertebrae; M47.812 Spondylosis without myelopathy or radiculopathy, cervical region; G44.86 Cervicogenic headache; M62.838 Other muscle spasm | CPT/HCPCS: 99202 ==

== ENCOUNTER 2025-07-26 10:52 | Outpatient (AMB) | payer OTHER, SELFPAY ==
--- NOTE | 2025-07-26 10:56 | A.OFFVIS_ITS ---
Vital Signs 07/26/25 10:57 Height 5 ft 5 in Weight 217 lb 6.012 oz BMI 36.2 BP 104/74 Blood Pressure Location Rt brachial Position Sitting Pulse 92 Pulse Source Pulse Oximeter Pulse Oximetry (%) 97 Oxygen Delivery Method Room Air Intake Visit Reasons: abnormal labs Intake Note: Patient presents today for abnormal labs Accompanied by: Self / Same As Patient Allergies diphenhydramine (Benadryl) Allergy (Unknown, Verified 07/26/25 10:57) swelling, hives Pumpkin Allergy (Unknown, Uncoded 01/26/24 12:45) unknown Seafood Allergy (Unknown, Uncoded 01/26/24 12:45) unknown HPI HPI abnormal labs: Details: New patient visit +SSA Chronic dry mouth, eyes, vagina, nose and skin for 3-4 years. Drinks 16 oz x7-8 bottles without relief in dry mouth. Uses gum and mints without benefit. Dr. Clifton Optomotrist at [facility] told her she had dry eyes and a cataract. She has a left pupil defect in which the people does not change size of unclear etiology previously evaluated at least 6 years ago by an coil placer. She uses refresh Plus for dry eyes few times a day with her contacts. Dry rash/scales on hands and feet treated with topical betamethasone prescribed PCP. She also is experiencing hair loss. Raynaud's syndrome in hands and feet started 3-4 years ago. Pain in neck, elbows, wrists, fingers, knees and hips. She sees pain management for neck pain who have offered her cortisone injections. Failed PT for neck pain. Mostly joint pain, some muscle pain. MS 1-2 hours. Hx dysphagia 2021 attributed to weak muscles of esophagus. Per patient EGD was unremakable. Barium swallow showed muscle weakness. Follows with GI at [facility]. Weight has been stable. She recently started majora a month ago. She is experiencing fatigue, weakness, night sweats, blurred vision, eye pain and redness that she attributes to cataracts. She also has tinnitus, nosebleeds, bleeding gums, sores in mouth, hoarseness in voice, intermittent chest pain. Denies pleurisy. At this time she is comfortable but may have intermittent shortness of breath. She also has nausea and heartburn. 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 She also reports neuropathy involving her upper extremities. She has had EMG evaluation in the past. She has frontal hair loss. She had 1 miscarriage at 4 months. She has not had any other pregnancies. Mother has inflammatory bowel disease. Her father had osteoarthritis. Denies smoking. She rarely drinks alcohol. 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 Medical history and medical list reviewed with patient. [facility] Medical History SS-A antibody positive Esophageal dysmotility Uncontrolled diabetes mellitus with hyperglycemia PCOS (polycystic ovarian syndrome) Bipolar 1 disorder Anxiety Left shoulder pain Cervical neck pain with evidence of disc disease Ulnar neuropathy Migraine Right shoulder pain Cervicalgia Arthritis Hypermobility arthralgia Surgical History No pertinent past surgical history Family History Other Mental health disorder Substance use disorder Social History Housing: House Alcohol intake: current Alcohol intake frequency: holidays/special occasions only Patient Tobacco Use Status: Former Tobacco user Tobacco use type: Cigarette e-Cigarette/Vaping Use: Never Used Second Hand Smoke Exposure: Yes Substance Use Type: Marijuana service: No Current occupational status: unemployed Cognitive needs: No Hearing needs: No Vision needs: Yes (contacts) Physical Exam Exam Exam: General: Comfortable CVS: RRR Respiratory: clear to auscultation bilaterally. Good respiratory effort Skin: No lesions seen, purplish who of toe tips. No digital ulcerations. MSK: Tender to palpate bilateral MCPs, PIPs, wrists, shoulders, knees, left ankle and MTPs. Tender forearms on palpation. She also has tender point in between shoulder blades. No synovitis. Normal range of motion of upper extremities and lower extremities. Vital Signs: Last Vital Signs Pulse 92 07/26/25 10:57 BP 104/74 07/26/25 10:57 Pulse Ox 97 07/26/25 10:57 Oxygen Delivery Method Room Air 07/26/25 10:57 BMI result Body Mass Index 36.2 Assessment & Plan Assessment & Plan (1) Raynaud disease: Code(s): I73.00 - Raynaud's syndrome without gangrene Category: Medical (2) Dry mouth and eyes: Code(s): R68.2 - Dry mouth, unspecified; H04.123 - Dry eye syndrome of bilateral lacrimal glands Category: Medical (3) Vaginal dryness: Code(s): N89.8 - Other specified noninflammatory disorders of vagina Category: Medical (4) Dysphagia: Comment: Secondary to esophageal dysmotility Code(s): R13.10 - Dysphagia, unspecified Category: Medical (5) Polyarthralgia: Code(s): M25.50 - Pain in unspecified joint Category: Medical Plan 45-year-old female with past medical history of diabetes, nerve root impingement, PCOS, esophageal dysmotility presents with sicca symptoms with positive SSA antibody. She also has Raynaud's phenomenon. We discussed further workup for Sjogren syndrome including laboratory workup, x-rays of hands and feet to evaluate for arthralgias associated with Sjogren syndrome and ocular testing with Meliton's test/eye exam for keratoconjunctivitis sicca. She did not have extensive tender points to suggest fibromyalgia contributing to her joint pain this visit. I will continue to monitor clinically. In setting of esophageal dysmotility, I have added additional antibodies including anticentromere antibody and Justo 1 antibody. She has an upcoming follow up with GI in the new year. I have asked her to have clinic note sent to my office for review. She will return to clinic in 3 months for review of results. I have asked her to follow up with her PCP for evaluation and management of hair loss and vaginal dryness with consideration of multigrapher referral. Orders: Orders Complement C4 Today I73.00 - Raynaud's syndrome without gangrene, M35.00 - Sjogren syndrome, unspecified Aspartate Amino Transferase Today I73.00 - Raynaud's syndrome without gangrene, M35.00 - Sjogren syndrome, unspecified Protein Electrophoresis, Serum Today I73.00 - Raynaud's syndrome without gangrene, M35.00 - Sjogren syndrome, unspecified XR Hand Bilat min 3v Today M25.50 - Pain in unspecified joint XR Foot Chacho 3V Today M25.50 - Pain in unspecified joint Complete Blood Count Auto Diff Today I73.00 - Raynaud's syndrome without gangrene, M35.00 - Sjogren syndrome, unspecified Alanine Aminotransferase Today I73.00 - Raynaud's syndrome without gangrene, M35.00 - Sjogren syndrome, unspecified C Reactive Protein Today I73.00 - Raynaud's syndrome without gangrene, M35.00 - Sjogren syndrome, unspecified Rheumatoid Factor Today I73.00 - Raynaud's syndrome without gangrene, M35.00 - Sjogren syndrome, unspecified Erythrocyte Sedimentation Rate Today I73.00 - Raynaud's syndrome without gangrene, M35.00 - Sjogren syndrome, unspecified Creatinine Today I73.00 - Raynaud's syndrome without gangrene, M35.00 - Sjogren syndrome, unspecified Complement C3 Today I73.00 - Raynaud's syndrome without gangrene, M35.00 - Sjogren syndrome, unspecified Anti-Centromere B Antibodies Today I73.00 - Raynaud's syndrome without gangrene JUSTO 1 Antibody Today I73.00 - Raynaud's syndrome without gangrene Aldolase Today I73.00 - Raynaud's syndrome without gangrene Creatine Kinase Total Today I73.00 - Raynaud's syndrome without gangrene Coding Level of Care Code New Pt Level 4 (94280) Diagnoses Raynaud disease I73.00 Dry mouth and eyes R68.2; H04.123 Vaginal dryness N89.8 Dysphagia R13.10 Polyarthralgia M25.50
[2025-07-26 10:57] VITALS: BP 104/74; PULSE 92; O2SAT 97; BMI 36.2
--- OUTSIDE RECORDS SUMMARY | 2025-07-26 12:20 | XMS_ITS | Clinical Summary ---
Author Organization [facility] Address [address] [place] [address] Phone Care Team Providers Care Oil Truck Driver Name Role Phone Isaac Boykin NP Primary Care Provider [phone] Allergies Active Allergy Reactions Criticality Noted Date Comments Diphenhydramine Hcl Hives 11/28/2024 Medications methocarbamoL (ROBAXIN) 750 mg tablet Take 1 tablet (750 mg total) by mouth 4 (four) times a day for 10 days. 20 each 11/28/2024 Active pantoprazole (PROTONIX) 40 mg EC tablet TAKE ONE TABLET BY MOUTH EVERY DAY 90 tablet 1 04/02/2025 Active Medical History Medical History Date Comments Arthritis DX:Arthritis Hypermobility arthralgia DX:Hype rmobility arthralgia Anxiety DX:Anxiety Covid-19 DX:COVID-19 Class 1 obesity DX:Class 1 obesi ty Diabetes mellitus ([facility] V24, [facility] V28) Family History Medical History Relation Name Comments Diabetes Father Heart attack Father Hyperlipidemia Father Hypertension Father Colon cancer Maternal Grandmother Diabetes Mother Heart attack Mother Hyperlipidemia Mother Hypertension Mother Relation Name Status Comments Father Maternal Grandmother Mother Social History Tobacco Use Types Packs/Day Years Used Date Smoking Tobacco: Former Cigarettes 0.3 Q uit: 01/24/2006 Smokeless Tobacco: Never Alcohol Use Standard Drinks/Week Comments Not Currently 0 (1 standard drink = 0.6 oz pur e alcohol) Comments Unknown Sex and Gender Information Value Date Recorded Sex Assigned at Not on file Legal Sex Female 4:36 PM EST Gender Identity Not on file Sexual Orientation Not on file Last Filed Vital Signs Vital Sign Reading [...] 11/28/2024 6:50 PM EDT Plan of Treatment Upcoming Encounters Date Type Department Care Team (Late st Contact Info) Description 08/22/2025 3:20 PM EST Office Visit Gastroenterology - [address] [phone] Breann Tanner PA [address] [facility] [address] [place] [address] Health Maintenance Due Date Last Done Comments Breast Cancer Screening 1980 Colorectal Cancer Screening: Colonoscopy 1980 DTaP,Tdap,and Td Vaccines (1 - Tdap) 1999 Hepatitis B Vaccines (1 of 3 - 19+ 3-dose series) 1999 Cervical Cancer Screening: P ap Smear 2001 HPV Vaccines (1 - 3-dose SCD M series) 2007 HIV Screening 06/25/2022 Hepatitis C Screening 06/25/2022 Social Influencers of Health Screening 06/25/2022 Depression Screening 07/27/2024 COVID-19 Vaccine ( - 2024-2 6 season) 2025 Influenza Vaccine (#1) 2025 RSV Immunization Adult Patie nts (1 - 1-dose 75+ series) 2055 HIB Vaccines Aged Out No longer eligi [...] on patient's age to complete this topic Pneumococcal Vaccine: Pediat rics (0 to 5 Years) and At-Risk Patients (6 to 49 Years) Aged Out No longer eligible b ased on patient's age to complete this topic RSV Immunization Patients Un isael 20 months Aged Out No longer eligible b ased on patient's age to complete this topic Varicella Vaccines Aged Out No longer eligible based on patient's age to complete this topic Insurance [facility] Care Teams Oil Truck Driver Relationship Specialty Start Date End Date Isaac Boykin NP [address] [place], [place] PCP - General 11/12/22
--- OUTSIDE RECORDS SUMMARY | 2025-07-26 12:20 | XMS_ITS | Clinical Summary ---
Author Organization [facility] Address [address] [place] [phone] Phone Care Team Providers Care Button Machine Operator Name Role Phone Isaac Boykin NARCOTICS AND VICE DETECTIVE Primary Care Provider + Allergies Active Allergy Reactions Criticality Noted Date Comments Bee Venom Protein (Honey Bee) Anaphylaxi s,Hives,Itchi ng,Palpitations,Rash,Sh ortness Of Breath,Swelling High 03/13/2025 Diphenhydramine Hcl 12/16/2022 Pumpkin Rash Low 03/13/2025 Fish Derived 12/16/2022 Medications ALPRAZolam (XANAX) 1 [...] immediate release tablet 40 mg. 3 Active ASCORBIC ACID WITH ETHAN HIPS 500 MG tablet 4 Active celecoxib (CELEBREX) 200 MG capsule Take 200 mg by mouth 2 (two) times a day as needed. Active VITAMIN B-12 500 MCG tablet Active CYMBALTA 60 mg capsule Active ferrous sulfate 325 mg (65 mg kluti ka[place] iron) tablet Take 325 mg by mouth [...] with meals. 180 tablet 3 5 Active DEXCOM G7 SENSOR Kenisha 1 each by Percutaneous route Every 10 Days. 9 each 3 5 Active EPINEPHrine 0.3 mg/0.3 mL auto-injector 5 Active QUEtiapine (SEROQUEL) 50 MG tablet 25 mg. 5 Active ALCOHOL PREP PADS PadM 5 Active TRESIBA FLEXTOUCH U-100 injection penIndications:T ype 2 diabetes mellitus with hyperglycemia, with long-term current use of insulin Inject 40 Units under the skin nightly at bedtime. 45 mL 1 5 Active tirzepatide (MOUNJARO) 2.5 mg/0.5 mL PnIj subcutaneous penIndications:T ype 2 diabetes mellitus with hyperglycemia, with long-term current use of insulin Inject 0.5 mL (2.5 mg total) under the skin every 7 days. 2 mL 1 5 Active tirzepatide (MOUNJARO) 5 mg/0.5 mL PnIj subcutaneous penIndications:T ype 2 diabetes mellitus with hyperglycemia, with long-term current use of insulin Inject 0.5 mL (5 mg total) under the skin every 7 days. To start after 1 month on 2.5 mg dose 2 mL 3 5 Active Active Problems Problem Noted Date Diagnosed Date Arthritis 10/17/2024 Bipolar disorder 10/17/2024 Degenerative disc disease at L5-S1 level 025 Generalized anxiety disorder 10/17/2024 Type 2 diabetes mellitus wit h hyperglycemia, with long-term current use of insulin 10/17/2024 Assessment & Plan (03/20/2025 11:16 AM EDT): Control is continuing to improve based upon the patient's dexcom G7 sensor download. No frequent or severe hypoglycemia. Will increase her tresiba dosing to help further improve her glucose control. Will maintain her ozempic dosing because it took her a little while to tolerate it, will not try increasing the dosing yet. Continue to work on eating healthy and trying to be active. To call or message with any issues managing her glucose levels. Scheduled to see ophtho soon. Labs were done with PCP. I have maintained a long-term, longitudinal relationship with this patient, overseeing care of chronic conditions, including diabetes. This care relationship has significantly influenced my decision-making and treatment plans during today's encounter. Assessment & Plan (01/09/2025 10:10 AM EDT): [...] menopausal & if not, should probably see dry cleaning checker. Encounters Date Type Department Care Team Description 05/16/2025 Orders Only [facility] [address] [place] [phone] Becky Rodriguez MD Type 2 diabetes mellitus with hyperglycemia, with long-term current use of insulin (Primary Dx) from Last 3 Months Immunizations No known [...] Sign Reading Time Taken Comments Blood Pressure 118/70 03/13/2025 1:47 PM EDT Pulse 79 03/13/2025 1:47 PM EDT Temperature 36.3 C (97.4 F) 01/02/2025 2:57 PM EDT Respiratory Rate 18 01/02/2025 2:57 PM EDT Oxygen Saturation 93% 03/13/2025 1:47 PM EDT Inhaled Oxygen Concentration - - Weight 98 kg (216 lb) 03/13/2025 1:47 PM EDT Height 164.2 cm (5' 4.65 ) 03/13/2025 1:47 PM ED T Body Mass Index 36.34 03/13/2025 1:47 PM EDT Plan of Treatment Upcoming Encounters Date Type Department Care Team (Late st Contact Info) Description 08/22/2025 11:40 AM EST Office Visit [facility] [address] [place] [phone] Becky Rodriguez MD [address] [place] [phone] [email or web address] Health Maintenance Due Date Last Done Comments Adult Td,Tdap Booster 1980 DEPRESSION SCREENING 1992 SMOKING Hx and SMOKELESS TOBACCO SCREENING 1993 HEPATITIS C SCREENING 1998 HIV ONE-TIME SCREENING (18-6 5 YEARS) 1998 PNEUMOCOCCAL VACCINES (0-49 years) (1 of 2 - PCV) 1999 PAP SMEAR 2001 MAMMOGRAM 2020 DIABETIC EYE EXAM 10/17/2024 HEMOGLOBIN A1C 01/17/2025 10/17/2024 INFLUENZA VACCINE (#1) 2025 COLOGUARD 2025 COLONOSCOPY 2025 COLORECTAL CANCER SCREENING 2025 FIT TEST 2025 FOBT 2025 SIGMOIDOSCOPY 2025 VIRTUAL COLONOSCOPY 2025 COVID-19 VACCINE (1 - 2024-2 6 season) 2025 BLOOD PRESSURE 09/13/2025 03/13/2025 CREATININE LEVEL 10/17/2025 10/17/2024, 09/25/2023, 10/07/2022 POTASSIUM [...] current use of insulin COMPREHENSIVE METABOLIC PANEL (CMP) Routine 10/17/2024 2:18 PM EDT Type 2 diabetes mellitus with hyperglycemia, with long-term current use of insulin from Last 3 Months or Most Recently Relevant to Health Maintenance Results * (ABNORMAL) Comprehensive metabolic panel (10/17/2024 2:18 PM EDT) SODIUM 133 133 - 146 mmol/L [facility] POTASSIUM 4.4 3.3 - 5.1 mmol/L [facility] CHLORIDE 98 96 - 108 mmol/L [facility] CO2 22 21 - 35 mmol/L [facility] BUN 9 6 - 19 mg/dL [facility] CREATININE 0.50 0.5 - 1.5 mg/dL [facility] GLUCOSE 299(H) 70 - 99 mg/dL [facility] ALBUMIN 4.1 3.9 - 4.8 g/dL [facility] TOTAL PROTEIN 7.1 6.5 - 8.0 g/dL [facility] CALCIUM 8.7 8.4 - 10.3 mg/dL [facility] ALKALINE PHOSPHATASE 61 39 - 117 U/L [facility] TOTAL BILIRUBIN 0.3 0.0 - 1.2 mg/dL [facility] AST 17 0 - 37 U/L [facility] ALT 18 0 - 40 U/L [facility] GLOBULIN 3.0 1 - 4.8 g/dL [facility] EGFR 119 >59 mL/min/1.7 3m2 [facility] Comment:Estimated glomerular filtration rate calculated using the CKD-EPI refit equation. ANION GAP 17 10 - 20 mmol/L [facility] Blood 10/17/2024 2:18 PM EDT 10/17/2024 2:24 PM EDT us Becky Rodriguez MD LAB BLOOD BKR ORDERABL ES Final Result [facility] [address] [place] [address] * (ABNORMAL) Hemoglobin A1c (10/17/2024 2:18 PM EDT) HEMOGLOBIN A1C 10.7(H) 4.3 - 5.8 % [facility] Blood 10/17/2024 2:18 PM EDT 10/17/2024 2:24 PM EDT Becky Rodriguez MD LAB BLOOD BKR ORDERABL ES Final Result [facility] [address] [place] [address] from Last 3 Months or Most Recently Relevant to Health Maintenance Insurance ACO ACO [employer] [place] [id number] Care Teams Button Machine Operator Relationship Specialty Start Date End Date Isaac Boykin NP [address] [place] [address] PCP - General 12/11/22 Additional Source Comments The information contained in this document represents components of the legal health record. It is not the complete legal health record.[facility]
== END 2025-07-26 12:04 | disposition home or self-care (01) ==
LOC: HO.RHES 10:52
PROVIDERS: PCP Nurse Practitioner Family; Visit Provider Internal Medicine Rheumatology
DX: I73.00 Raynaud's syndrome without gangrene (principal); R68.2 Dry mouth, unspecified; H04.123 Dry eye syndrome of bilateral lacrimal glands; N89.8 Other specified noninflammatory disorders of vagina; R13.10 Dysphagia, unspecified; M25.50 Pain in unspecified joint
CPT/HCPCS: 99204

== ENCOUNTER → 2025-07-26 10:52 | Outpatient (BNVA) | payer OTHER, SELFPAY | PROVIDERS: PCP Nurse Practitioner Family; Visit Provider Internal Medicine Rheumatology | DX: I73.00 Raynaud's syndrome without gangrene (principal); R68.2 Dry mouth, unspecified; H04.123 Dry eye syndrome of bilateral lacrimal glands; N98.8 Other complications associated with artificial fertilization; R13.10 Dysphagia, unspecified; M25.50 Pain in unspecified joint; L65.9 Nonscarring hair loss, unspecified | CPT/HCPCS: 99202 ==